=== PATIENT | male | born 1990 | race Caucasian/White ===

== ENCOUNTER 2018-08-29 10:21 | Emergency (ER) | payer OTHER ==
[2018-08-29] MEDS ORDERED: MORPHINE 4 MG/ML SYR ONE (11:02)
[2018-08-29] MEDS ORDERED: ONDANSETRON 4 MG/2 ML VIAL ONE (11:02)
[2018-08-29] MEDS ORDERED: NA CHLORIDE 0.9% 0 ML ONE (11:02)
[2018-08-29 11:03] LABS: Absolute Lymphocytes (CBC) 1.6 K/uL (0.7-4.9); Basophils % 0.3 % (0-1.3); Eosinophils % 1.1 % (0-4.4); Hematocrit 43.2 % (39.6-49.0); Lymphocytes % 38.1 % (15.3-44.8); MPV 10.5 fL (7.6-11.3); Monocytes % 6.7 % (3.3-12.3); RBC Red Blood Cell Count 4.99 M/uL (4.33-5.43)
--- NOTE | 2018-08-29 11:09 | RAD REPORT ---
EXAM DESCRIPTION: CT - Stone Protocol - 08/29/2018 10:57 am CLINICAL HISTORY: Flank pain. FLANK PAIN COMPARISON: Stone Protocol dated 08/10/2015 TECHNIQUE: Axial images were obtained without oral or IV contrast. Lack of contrast limits solid org an and vascular assessment. The [id number] spans the entirety of the system partially obscuring uppermost abdomen and lung bases. Coronal reformatted images were obtained and reviewed. All CT scans are performed using dose optimization technique as appropriate and may include automated exposure control or mA/KV adjustment according to patient size. FINDINGS: The lower lung wilkerson are clear. Imaged portions of the liver and spleen show no suspicious findings on non-contrast imaging. The panc reas and adrenal glands are normal. No pathologic lymphadenopathy in the abdomen or pelvis. 2 mm calculus is present mid right ureter without significant hydronephrosis. Punctate calculus is no marcel left midpole calyx. 36 mm cyst is also seen posterior cortex left kidney. No bowel obstruction, free air, free fluid or abscess. Normal appendix noted. No significant bony abnormality. IMPRESSION: 2 mm calculus mid right ureter without significant hydronephrosis.
[2018-08-29 11:13] LABS: Albumin 4.2 g/dL (3.4-5.0); Bilirubin Direct 0.1 mg/dL (0-0.2); Bilirubin Total 0.4 mg/dL (0.2-1.0); Potassium 3.7 mmol/L (3.5-5.1); Protein, Total 7.1 g/dL (6.4-8.2)
[2018-08-29] MEDS ORDERED: CIPROFLOXACIN HCL 500 MG TAB ONE (12:01)
[2018-08-29] MEDS ORDERED: KETOROLAC 30 MG/ML INJ ONE (12:01)
[2018-08-29] MEDS ORDERED: NA CHLORIDE 0.9% 1,000 ML ONE (12:01)
[2018-08-29] MEDS ORDERED: TAMSULOSIN 0.4 MG SR CAP ONE (12:01)
--- NOTE | 2018-08-29 12:21 | ER ---
Nurse's Notes [facility] Name: Ranjit Rutledge Age: 28 yrs Sex: Male : 1990 Arrival Date: 08/29/2018 Time: 10:24 Bed 7 Private MD: Diagnosis: Calculus of ureter-right Presentation: 08/29 10:40 Presenting complaint: Patient states: R FLANK PAIN RADIATING TO R GROIN. Transition of bp care: patient was not received from another setting of care. Onset of symptoms was August 29, 2018. Risk Assessment: Do you want to hurt yourself or someone else? Patient reports no desire to harm self or others. Initial Sepsis Screen: Does the patient meet any 2 criteria? No. Patient's initial sepsis screen is negative. Does the patient have a suspected source of infection? No. Patient's initial sepsis screen is negative. Care prior to arrival: None. 10:40 Method Of Arrival: Ambulatory bp 10:40 Acuity: CELENA 3 bp Triage Assessment: 10:41 General: Appears in no apparent distress. comfortable, Behavior is cooperative, bp appropriate for age, anxious. Pain: Complains of pain in right flank. EENT: No deficits noted. Neuro: No deficits noted. Cardiovascular: No deficits noted. Respiratory: No deficits noted. GI: Reports R FLANK PAIN. : No signs and/or symptoms were reported regarding the genitourinary system. Derm: No deficits noted. Musculoskeletal: No deficits noted. Historical: - Allergies: 10:41 No Known Allergies; bp - Home Meds: 10:41 None [Active]; bp - PMHx: 10:41 Kidney stones; Depression; Anxiety; bp - PSHx: 10:41 None; bp - Immunization history:: Adult Immunizations up to date. - Social history:: Smoking status: Patient/guardian denies using tobacco. - Ebola Screening: : No symptoms or risks identified at this time. Screenin:43 Abuse screen: Denies threats or abuse. Denies injuries from another. Nutritional bp screening: No deficits noted. Tuberculosis screening: No symptoms or risk factors identified. Fall Risk None identified. Assessment: 10:43 General: SEE TRIAGE NOTE. bp 10:52 Reassessment: PT TO CT WITH INTEGRATED MARKETING INTERN. bp 13:17 Reassessment: Patient appears in no apparent distress at this time. Patient is alert, ca1 oriented x 3, equal unlabored respirations, skin warm/dry/pink. Patient states feeling better. Vital Signs: 10:41 BP 131 / 100; Pulse 82; Resp 16; Temp 97.3; Pulse Ox 97% ; Weight 102.06 kg; Height 5 bp ft. 8 in. (172.72 cm); 10:52 BP 132 / 96; Pulse 84; Resp 16; Pulse Ox 97% ; bp 13:17 BP 130 / 90; Pulse 68; Resp 18 S; Pulse Ox 97% on R/A; ca1 10:41 Body Mass Index 34.21 (102.06 kg, 172.72 cm) bp ED Course: 10:24 Patient arrived in ED. mr 10:27 Mahendra Olguin, MICHAEL is Primary Nurse. bp 10:28 Lucian Moreno NP is PHCP. pm1 10:28 Edna Huang MD is Attending Physician. pm1 10:41 Triage completed. bp 10:41 Arm band placed on. bp 10:43 Patient has correct armband on for positive identification. Bed in low position. Call bp light in reach. Side rails up X2. Adult w/ patient. 10:56 CT completed. Patient tolerated procedure well. Patient moved back from CT. mw3 10:58 CT Stone Protocol In Process Unspecified. EDMS 10:58 Initial lab(s) drawn, by me, sent to lab. Inserted saline lock: 22 gauge in right jb1 antecubital area, using aseptic technique. Blood collected. 12:21 Moo Briggs MD is Referral Physician. pm1 13:17 No provider procedures requiring assistance completed. IV discontinued, intact, ca1 bleeding controlled, No redness/swelling at site. Pressure dressing applied. Administered Medications: 10:53 Drug: NS 0.9% 1000 ml Route: IV; Rate: 1000 ml; Site: right antecubital; bp 13:16 Follow up: Response: No adverse reaction; IV Status: Completed infusion ca1 10:54 Drug: Zofran 4 mg Route: IVP; Site: right antecubital; bp 11:34 Follow up: Response: No adverse reaction bp 10:54 Drug: morphine 4 mg Route: IVP; Site: right antecubital; bp 11:34 Follow up: Response: Pain is decreased bp 11:50 Drug: Cipro 500 mg Route: PO; bp 13:05 Follow up: Response: No adverse reaction bp 11:50 Drug: Flomax 0.4 mg Route: PO; bp 13:05 Follow up: Response: No adverse reaction bp 11:51 Drug: TORadol 30 mg Route: IVP; Site: right antecubital; bp 13:05 Follow up: Response: No adverse reaction bp 13:17 Not Given (Patient Refused; Notified provider): NS 0.9% 1000 ml IV at 1000 ml once ca1 Outcome: 12:21 Discharge ordered by . pm1 13:17 Discharged to home ambulatory, with significant other. ca1 13:17 Condition: stable 13:17 Discharge instructions given to patient, Instructed on discharge instructions, follow up and referral plans. medication usage, Demonstrated understanding of instructions, follow-up care, medications, Prescriptions given X 4. 13:18 Patient left the ED. ca1 Signatures: Dispatcher [employer] EDMS Corby [place] mr JoshLucian, ROUTING CLERK ROUTING CLERK pm1 Mahendra Olguin RN RN bp Racheal Rodriguez mw3 Dawn Seo RN RN ca1 Corrections: (The following items were deleted from the chart) 10:59 10:51 Inserted saline lock: 20 gauge in right antecubital area, using aseptic jb1 technique. Blood collected. bp
--- NOTE | 2018-08-29 12:22 | EDPHYS ---
Physician Documentation [facility] Name: Ranjit Rutledge Age: 28 yrs Sex: Male : 1990 Arrival Date: 08/29/2018 Time: 10:24 Bed 7 Private MD: ED Physician Edna Huang HPI: 08/29 10:37 This 28 yrs old Male presents to ER via Unassigned with complaints of pm1 Possible Kidney Stone. 10:37 The patient presents with abdominal pain right lower quadrant. Onset: The pm1 symptoms/episode began/occurred 3 day(s) ago. The symptoms do not radiate. Associated signs and symptoms: Pertinent positives: hematuria, nausea, Pertinent negatives: chest pain, constipation, diarrhea, dysuria, fever, shortness of breath, vomiting. The symptoms are described as sharp. Modifying factors: The symptoms are alleviated by nothing, the symptoms are aggravated by urinating. Severity of pain: in the emergency department the pain is actually worse. The patient has not experienced similar symptoms in the past. The patient has not recently seen a physician. History of multiple kidney stones requiring lithotripsy and extraction. Historical: - Allergies: 10:41 No Known Allergies; bp - Home Meds: 10:41 None [Active]; bp - PMHx: 10:41 Kidney stones; Depression; Anxiety; bp - PSHx: 10:41 None; bp - Immunization history:: Adult Immunizations up to date. - Social history:: Smoking status: Patient/guardian denies using tobacco. - Ebola Screening: : No symptoms or risks identified at this time. ROS: 10:47 Constitutional: Negative for fever, chills, and weight loss, Eyes: Negative for injury, pm1 pain, redness, and discharge, ENT: Negative for injury, pain, and discharge, Neck: Negative for injury, pain, and swelling, Cardiovascular: Negative for chest pain, palpitations, and edema, Respiratory: Negative for shortness of breath, cough, wheezing, and pleuritic chest pain. 10:47 Back: Negative for injury and pain. 10:47 MS/Extremity: Negative for injury and deformity, Skin: Negative for injury, rash, and discoloration, Neuro: Negative for headache, weakness, numbness, tingling, and seizure. 10:47 Abdomen/GI: Positive for abdominal pain, nausea, of the right lower quadrant, Negative for vomiting, diarrhea, constipation. 10:47 : Positive for hematuria, Negative for burning with urination. Exam: 10:47 Constitutional: This is a well developed, well nourished patient who is awake, alert, pm1 and in no acute distress. Head/Face: Normocephalic, atraumatic. Eyes: Pupils equal round and reactive to light, extra-ocular motions intact. Lids and lashes normal. Conjunctiva and sclera are non-icteric and not injected. Cornea within normal limits. Periorbital areas with no swelling, redness, or edema. ENT: Nares patent. No nasal discharge, no septal abnormalities noted. Tympanic membranes are normal and external auditory canals are clear. Oropharynx with no redness, swelling, or masses, exudates, or evidence of obstruction, uvula midline. Mucous membranes moist. Neck: Trachea midline, no thyromegaly or masses palpated, and no cervical lymphadenopathy. Supple, full range of motion without nuchal rigidity, or vertebral point tenderness. No Meningismus. Chest/axilla: Normal chest wall appearance and motion. Nontender with no deformity. No lesions are appreciated. Cardiovascular: Regular rate and rhythm with a normal S1 and S2. No gallops, murmurs, or rubs. Normal PMI, no JVD. No pulse deficits. Respiratory: Lungs have equal breath sounds bilaterally, clear to auscultation and percussion. No rales, rhonchi or wheezes noted. No increased work of breathing, no retractions or nasal flaring. 10:47 Back: No spinal tenderness. No costovertebral tenderness. Full range of motion. Skin: Warm, dry with normal turgor. Normal color with no rashes, no lesions, and no evidence of cellulitis. MS/ Extremity: Pulses equal, no cyanosis. Neurovascular intact. Full, normal range of motion. 10:47 Abdomen/GI: Inspection: abdomen appears normal, Bowel sounds: normal, Palpation: soft, mild abdominal tenderness, in the right lower quadrant, mass, is not appreciated, rebound tenderness, is not appreciated. 10:47 Neuro: Orientation: is normal, Motor: is normal, moves all fours. Vital Signs: 10:41 BP 131 / 100; Pulse 82; Resp 16; Temp 97.3; Pulse Ox 97% ; Weight 102.06 kg; Height 5 bp ft. 8 in. (172.72 cm); 10:52 BP 132 / 96; Pulse 84; Resp 16; Pulse Ox 97% ; bp 13:17 BP 130 / 90; Pulse 68; Resp 18 S; Pulse Ox 97% on R/A; ca1 10:41 Body Mass Index 34.21 (102.06 kg, 172.72 cm) bp MDM: 10:28 Patient medically screened. pm1 10:47 Data reviewed: vital signs. Data interpreted: Pulse oximetry: on room air is 97 %. pm1 Interpretation: normal. 11:25 Counseling: I had a detailed discussion with the patient and/or guardian regarding: the pm1 historical points, exam findings, and any diagnostic results supporting the discharge/admit diagnosis, lab results, radiology results, the need for outpatient follow up, for definitive care, a urologist, to return to the emergency department if symptoms worsen or persist or if there are any questions or concerns that arise at home. 13:07 ED course: Patient does not want second liter of IV fluids. Patient feels better and pm1 wants to go home. 08/29 10:36 Order name: Basic Metabolic Panel; Complete Time: 11:18 pm1 08/29 10:36 Order name: CBC with Diff; Complete Time: 11:18 pm08/29 10:36 Order name: Hepatic Function; Complete Time: 11:18 pm1 08/29 10:36 Order name: Lipase; Complete Time: 11:18 pm1 08/29 12:42 Order name: Urine Dipstick--Ancillary (enter results) dh3 08/29 10:36 Order name: CT Stone Protocol; Complete Time: 11:18 pm08/29 10:36 Order name: IV Saline Lock; Complete Time: 10:53 pm1 08/29 10:36 Order name: Labs collected and sent; Complete Time: 10:53 pm1 08/29 10:36 Order name: Urine Dipstick-Ancillary (obtain specimen); Complete Time: 13:05 pm1 Administered Medications: 10:53 Drug: NS 0.9% 1000 ml Route: IV; Rate: 1000 ml; Site: right antecubital; bp 13:16 Follow up: Response: No adverse reaction; IV Status: Completed infusion ca1 10:54 Drug: Zofran 4 mg Route: IVP; Site: right antecubital; bp 11:34 Follow up: Response: No adverse reaction bp 10:54 Drug: morphine 4 mg Route: IVP; Site: right antecubital; bp 11:34 Follow up: Response: Pain is decreased bp 11:50 Drug: Cipro 500 mg Route: PO; bp 13:05 Follow up: Response: No adverse reaction bp 11:50 Drug: Flomax 0.4 mg Route: PO; bp 13:05 Follow up: Response: No adverse reaction bp 11:51 Drug: TORadol 30 mg Route: IVP; Site: right antecubital; bp 13:05 Follow up: Response: No adverse reaction bp 13:17 Not Given (Patient Refused; Notified provider): NS 0.9% 1000 ml IV at 1000 ml once ca1 Disposition: 08/29/18 12:21 Discharged to Home. Impression: Calculus of ureter - right. - Condition is Stable. - Discharge Instructions: Kidney Stones, Dietary Guidelines to Help Prevent Kidney Stones. - Prescriptions for Tylenol- Codeine #3 300-30 mg Oral Tablet - take 2 tablets by ORAL route every 6 hours As needed; 20 tablet. Zofran 4 mg Oral Tablet - take 1 tablet by ORAL route every 12 hours As needed; 20 tablet. Flomax 0.4 mg Oral Capsule, Sust. Release 24 hr - take 1 capsule by ORAL route once daily 1/2 hour following the same meal each day; 10 capsule. Cipro 500 mg Oral Tablet - take 1 tablet by ORAL route every 12 hours for 7 days; 14 tablet. - Work release form, Medication Reconciliation Form, Thank You Letter, Antibiotic Education, Prescription Opioid Use form. - Follow up: Emergency Department; When: As needed; Reason: Worsening of condition. Follow up: Moo Briggs; When: 2 - 3 days; Reason: Recheck today's complaints, Continuance of care, Re-evaluation by your physician. - Problem is new. - Symptoms have improved. Addendum: 09/03/2018 02:07 Co-signature as Attending Physician, Edna Huang MD. m a2 Signatures: Dispatcher [employer] EDMS Lucian Moreno, BRANDI BANKING ANALYST pm1 Mahendra Olguin RN RN bp Edna Huang MD MD ma2 Dawn Seo RN RN ca1 Corrections: (The following items were deleted from the chart) 07/06 13:18 12:21 08/29/2018 12:21 Discharged to Home. Impression: Calculus of ureter - right. ca1 Condition is Stable. Discharge Instructions: Kidney Stones, Dietary Guidelines to Help Prevent Kidney Stones. Prescriptions for Zofran 4 mg Oral Tablet - take 1 tablet by ORAL route every 12 hours As needed; 20 tablet, Flomax 0.4 mg Oral Capsule, Sust. Release 24 hr - take 1 capsule by ORAL route once daily 1/2 hour following the same meal each day; 30 capsule, Cipro 500 mg Oral Tablet - take 1 tablet by ORAL route every 12 hours for 7 days; 14 tablet, Tylenol-Codeine #3 300-30 mg Oral Tablet - take 2 tablets by ORAL route every 6 hours As needed; 20 tablet. and Forms are Medication Reconciliation Form, Thank You Letter, Antibiotic Education, Prescription Opioid Use. Follow up: Emergency Department; When: As needed; Reason: Worsening of condition. Follow up: Moo Briggs; When: 2 - 3 days; Reason: Recheck today's complaints, Continuance of care, Re-evaluation by your physician. Problem is new. Symptoms have improved. pm1
[2018-08-29 13:32] LABS: Urine Blood TRACE (NEG); Urine Glucose NEGATIVE (NEG); Urine Protein NEGATIVE (NEG); Urine Specific Gravity 1.025 (1.005-1.030); Urine pH 5.5 (5.0-7.0)
== END 2018-08-29 13:18 | disposition home or self-care (01) ==
LOC: ER 10:21
DX: N20.1 Calculus of ureter (principal); Z87.442 Personal history of urinary calculi
CPT/HCPCS: 36415; 74176; 76377; 80048; 80076; 81003; 83690; 85025; 96361; 96374; 96375; 99284; J2405; J7030

== ENCOUNTER 2019-02-22 11:08 | Emergency (ER) | payer OTHER ==
--- OUTSIDE RECORDS SUMMARY | 2019-02-22 11:11 | XMS REPORT ---
:1990 [facility] [address] [place] [address] Dr. Menjivar [address] [place] [id number] Care Team Providers Name Role Phone Unavailable Unavailable Unavailable Problems This patient has no known problems. Allergies, Adverse Reactions, Alerts This patient has no known allergies or adverse reactions. Medications This patient has no known medications.
[2019-02-22] MEDS ORDERED: IBUPROFEN 200 MG TAB PO ONE (12:06)
--- NOTE | 2019-02-22 12:55 | RAD REPORT ---
EXAM DESCRIPTION: Shoulder Right 2 View - 02/22/2019 12:30 pm CLINICAL HISTORY: Right shoulder pain, history of prior shoulder injury COMPARISON: None. TECHNIQUE: Internal and external rotation views of the right shoulder were obtained. FINDINGS: There is no fracture or dislocation. AC joint is normal in appearance. Acromial humeral j oint space is normal. No abnormal soft tissue calcifications. IMPRESSION: Negative two-view right shoulder examination. Concerns for rotator cuff tear or other soft tissue injury can be addressed with outpatient MR right shoulder examination.
--- NOTE | 2019-02-22 12:58 | RAD REPORT ---
EXAM DESCRIPTION: CT - C Spine Wo Con - 02/22/2019 12:29 pm CLINICAL HISTORY: Fall with neck pain and radiculopathy COMPARISON: None. TECHNIQUE: Computed axial tomography of the cervical spine were obtained with sagittal and coronal r econstruction images generated and reviewed. All CT scans are performed using dose optimization technique as appropriate and may include automated exposure control or mA/KV adjustment according to patient size. FINDINGS: A cervical fracture is not seen. No dislocation. Mild spondylosis IMPRESSION: A cervical fracture is not seen. If the patient continues have symptoms to suggest spinal cord/spinal canal pathology then MRI would b e recommended.
--- NOTE | 2019-02-22 13:07 | ER ---
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 Transition of care: patient was not received from another setting of care. Onset of symptoms was February 22, 2019. Risk Assessment: Do you want to hurt yourself or someone else? Patient reports no desire to harm self or others. Initial Sepsis Screen: Does the patient meet any 2 criteria? No. Patient's initial sepsis screen is negative. Does the patient have a suspected source of infection? No. Patient's initial sepsis screen is negative. Care prior to arrival: None. 11:21 Method Of Arrival: Ambulatory sg 11:21 Acuity: CELENA 4 sg Historical: - Allergies: 11:10 No Known Allergies; sg - PMHx: 11:10 Anxiety; Depression; Kidney stones; sg - PSHx: 11:10 None; sg - Immunization history:: Adult Immunizations unknown. - Social history:: Smoking status: Patient uses tobacco products. - Ebola Screening: : Patient negative for fever greater than or equal to 101.5 degrees Fahrenheit, and additional compatible Ebola Virus Disease symptoms Patient denies exposure to infectious person Patient denies travel to an Ebola-affected area in the 21 days before illness onset No symptoms or risks identified at this time. - Family history:: not pertinent. Screenin:08 Abuse screen: Denies threats or abuse. Denies injuries from another. Nutritional mg2 screening: No deficits noted. Tuberculosis screening: No symptoms or risk factors identified. Fall Risk None identified. Assessment: 12:07 General: Appears in no apparent distress. uncomfortable, Behavior is calm, cooperative. mg2 Pain: Complains of pain in right shoulder Pain does not radiate. Pain currently is 5 out of 10 on a pain scale. Quality of pain is described as aching, Pain began suddenly, last week Is intermittent. Neuro: Level of Consciousness is awake, alert, obeys commands, Oriented to person, place, time, situation. Cardiovascular: Capillary refill < 3 seconds Patient's skin is warm and dry. Respiratory: Airway is patent Respiratory effort is even, unlabored, Respiratory pattern is regular, symmetrical. GI: No signs and/or symptoms were reported involving the gastrointestinal system. : No signs and/or symptoms were reported regarding the genitourinary system. EENT: No signs and/or symptoms were reported regarding the EENT system. Derm: Skin is intact, is healthy with good turgor, Skin is pink, warm \T\ dry. normal. Musculoskeletal: Circulation, motion, and sensation intact. Capillary refill < 3 seconds, Reports pain in right shoulder. 13:18 Reassessment: pain is tolerable Patient states feeling better. mg2 Vital Signs: 11:20 BP 136 / 86; Pulse 89; Resp 18; Temp 97.2; Pulse Ox 100% on R/A; Weight 99.79 kg; sg Height 5 ft. 8 in. (172.72 cm); Pain 6/10; 13:18 BP 122 / 78; Pulse 80; Resp 17; Temp 98; Pulse Ox 100% on R/A; Pain 4/10; mg2 11:20 Body Mass Index 33.45 (99.79 kg, 172.72 cm) ED Course: 11:09 Patient arrived in ED. sg 11:10 Arm band placed on. sg 11:23 Triage completed. sg 11:55 Josue Morrow MD is Attending Physician. [facility] 12:02 Micha Matos, MICHAEL is Primary Nurse. mg2 12:08 Patient has correct armband on for positive identification. mg2 12:08 No provider procedures requiring assistance completed. Patient did not have IV access mg2 during this emergency room visit. 12:24 X-ray completed. Portable x-ray completed in exam room. Patient tolerated procedure mh1 well. 12:30 Shoulder Right (2 View) XRAY In Process Unspecified. EDMS 12:30 CT C Spine In Process Unspecified. EDMS 13:05 Alexei Rios MD is Referral Physician. pop Administered Medications: 12:06 Not Given (Patient Refused): Motrin 600 mg PO once mg2 12:54 CANCELLED (Duplicate Order): TORadol 60 mg IM once pop Outcome: 13:06 Discharge ordered by . pop 13:18 Discharged to home ambulatory. mg2 13:18 Condition: stable 13:18 Discharge instructions given to patient, Instructed on discharge instructions, follow up and referral plans. medication usage, Demonstrated understanding of instructions, follow-up care, medications, Prescriptions given X 2. 13:19 Patient left the ED. mg2 Signatures: Dispatcher [employer] EDMS Deshawn Farley RN RN Josue Morrow MD MD cha Harvey, Martha [facility] Micha Matos RN RN mg2
--- NOTE | 2019-02-22 13:08 | EDPHYS ---
Physician Documentation [facility] Name: Ranjit Rutledge Age: 28 yrs Sex: Male : 1990 Arrival Date: 02/22/2019 Time: 11:09 Bed 25 Private MD: ED Physician Josue Morrow HPI: 02/22 12:19 This 28 yrs old Male presents to ER via Ambulatory with complaints of pop Shoulder Pain. 12:19 The patient or guardian complains of decreased range of motion, pain. right shoulder, pop right trapezius and right sternocleidomastoid. Context: The problem was sustained at home, resulted from a fall. Onset: The symptoms/episode began/occurred 20 day(s) ago. Modifying factors: the symptoms are alleviated by remaining still, shoulder immobilizer, The symptoms are aggravated by lifting weight, movement, rotation of arm. Associated signs and symptoms: The patient has no apparent associated signs or symptoms. Severity of symptoms: At their worst the symptoms were mild, moderate, in the emergency department the symptoms are unchanged. The patient has not experienced similar symptoms in the past. Historical: - Allergies: 11:10 No Known Allergies; sg - PMHx: 11:10 Anxiety; Depression; Kidney stones; sg - PSHx: 11:10 None; sg - Immunization history:: Adult Immunizations unknown. - Social history:: Smoking status: Patient uses tobacco products. - Ebola Screening: : Patient negative for fever greater than or equal to 101.5 degrees Fahrenheit, and additional compatible Ebola Virus Disease symptoms Patient denies exposure to infectious person Patient denies travel to an Ebola-affected area in the 21 days before illness onset No symptoms or risks identified at this time. - Family history:: not pertinent. ROS: 12:19 Constitutional: Negative for fever, chills, and weight loss, Eyes: Negative for injury, pop pain, redness, and discharge, ENT: Negative for injury, pain, and discharge, Neck: Negative for injury, pain, and swelling, Cardiovascular: Negative for chest pain, palpitations, and edema, Respiratory: Negative for shortness of breath, cough, wheezing, and pleuritic chest pain, Abdomen/GI: Negative for abdominal pain, nausea, vomiting, diarrhea, and constipation, Back: Negative for injury and pain, : Negative for injury, bleeding, discharge, and swelling, Skin: Negative for injury, rash, and discoloration, Neuro: Negative for headache, weakness, numbness, tingling, and seizure, Psych: Negative for depression, anxiety, suicide ideation, homicidal ideation, and hallucinations, Allergy/Immunology: Negative for hives, rash, and allergies, Endocrine: Negative for neck swelling, polydipsia, polyuria, polyphagia, and marked weight changes. 12:19 MS/extremity: Positive for decreased range of motion, pain, tenderness, of the anterior aspect of right shoulder and posterior aspect of right shoulder. Exam: 12:19 Constitutional: This is a well developed, well nourished patient who is awake, alert, pop and in no acute distress. Head/Face: Normocephalic, atraumatic. Eyes: Pupils equal round and reactive to light, extra-ocular motions intact. Lids and lashes normal. Conjunctiva and sclera are non-icteric and not injected. Cornea within normal limits. Periorbital areas with no swelling, redness, or edema. ENT: Nares patent. No nasal discharge, no septal abnormalities noted. Tympanic membranes are normal and external auditory canals are clear. Oropharynx with no redness, swelling, or masses, exudates, or evidence of obstruction, uvula midline. Mucous membranes moist. Neck: Trachea midline, no thyromegaly or masses palpated, and no cervical lymphadenopathy. Supple, full range of motion without nuchal rigidity, or vertebral point tenderness. No Meningismus. Chest/axilla: Normal chest wall appearance and motion. Nontender with no deformity. No lesions are appreciated. Cardiovascular: Regular rate and rhythm with a normal S1 and S2. No gallops, murmurs, or rubs. Normal PMI, no JVD. No pulse deficits. Respiratory: Lungs have equal breath sounds bilaterally, clear to auscultation and percussion. No rales, rhonchi or wheezes noted. No increased work of breathing, no retractions or nasal flaring. Abdomen/GI: Soft, non-tender, with normal bowel sounds. No distension or tympany. No guarding or rebound. No evidence of tenderness throughout. Back: No spinal tenderness. No costovertebral tenderness. Full range of motion. Male : Normal genitalia with no discharge or lesions. Skin: Warm, dry with normal turgor. Normal color with no rashes, no lesions, and no evidence of cellulitis. Neuro: Awake and alert, GCS 15, oriented to person, place, time, and situation. Cranial nerves II-XII grossly intact. Motor strength 5/5 in all extremities. Sensory grossly intact. Cerebellar exam normal. Normal gait. Psych: Awake, alert, with orientation to person, place and time. Behavior, mood, and affect are within normal limits. 12:19 Musculoskeletal/extremity: Extremities: decreased ROM, pain, ROM: limited active range of motion, limited passive range of motion, Circulation is intact in all extremities. Sensation intact. Compartment Syndrome exam of affected extremity: is normal. DVT Exam: no swelling, negative Homans' sign noted on exam, no appreciated bluish discoloration, no erythema, no increased warmth, pain, tenderness. Vital Signs: 11:20 BP 136 / 86; Pulse 89; Resp 18; Temp 97.2; Pulse Ox 100% on R/A; Weight 99.79 kg; sg Height 5 ft. 8 in. (172.72 cm); Pain 6/10; 13:18 BP 122 / 78; Pulse 80; Resp 17; Temp 98; Pulse Ox 100% on R/A; Pain 4/10; mg2 11:20 Body Mass Index 33.45 (99.79 kg, 172.72 cm) sg MDM: 11:55 Patient medically screened. [facility] 12:21 Data reviewed: vital signs, nurses notes, lab test result(s), radiologic studies, CT pop scan, plain films. 02/22 11:58 Order name: Shoulder Right (2 View) XRAY; Complete Time: 13:05 [facility] 02/22 12:19 Order name: CT C Spine; Complete Time: 13:05 [facility] 02/22 11:58 Order name: Ice pack; Complete Time: 12:04 [facility] Administered Medications: 12:06 Not Given (Patient Refused): Motrin 600 mg PO once mg2 12:54 CANCELLED (Duplicate Order): TORadol 60 mg IM once pop Disposition: 02/22/19 13:06 Discharged to Home. Impression: Pain in right shoulder. - Condition is Stable. - Discharge Instructions: Joint Pain, Musculoskeletal Pain, Shoulder Pain, Shoulder Range of Motion Exercises, Shoulder Pain, [id number]. - Prescriptions for Tylenol- Codeine #3 300-30 mg Oral Tablet - take 2 tablet by ORAL route every 6 hours As needed; 30 tablet. Medrol (Richi) 4 mg Oral Tablets, Dose Pack - take 1 tablet by ORAL route as directed - follow package instructions; 1 packet. - Medication Reconciliation Form, Thank You Letter, Antibiotic Education, Prescription Opioid Use form. - Follow up: lAexei Rios MD; When: 2 - 3 days; Reason: Recheck today's complaints, Continuance of care, Re-evaluation by your physician. - Problem is new. - Symptoms have improved. Signatures: Dispatcher [employer] EDDeshawn Munson, MICHAEL RN sg Josue Morrow MD MD cha Gardose, Michele, RN RN mg2 Corrections: (The following items were deleted from the chart) 12:54 12:19 TORadol 60 mg IM once ordered. pop lord 13:19 13:06 02/22/2019 13:06 Discharged to Home. Impression: Pain in right shoulder. mg2 Condition is Stable. Forms are Medication Reconciliation Form, Thank You Letter, Antibiotic Education, Prescription Opioid Use. Follow up: Alexei Rios; When: 2 - 3 days; Reason: Recheck today's complaints, Continuance of care, Re-evaluation by your physician. Problem is new. Symptoms have improved. pop
[2019-02-22 13:23] VITALS: O2SAT 100
[2019-02-22 13:25] VITALS: BP 122/78; TEMP 98
== END 2019-02-22 13:19 | disposition home or self-care (01) ==
LOC: ER 11:08
DX: M25.511 Pain in right shoulder (principal); Z72.0 Tobacco use
CPT/HCPCS: 72125; 99283

== ENCOUNTER 2019-07-26 08:41 | Emergency (ER) | payer OTHER ==
[2019-07-26] MEDS ORDERED: KETOROLAC 30 MG/ML INJ ONE (09:15)
[2019-07-26] MEDS ORDERED: DIAZEPAM 5 MG TABLET ONE (09:15)
--- NOTE | 2019-07-26 09:46 | RAD REPORT ---
EXAM DESCRIPTION: CT - Stone Protocol - 07/26/2019 9:17 am CLINICAL HISTORY: FLANK PAIN COMPARISON: Stone Protocol dated 08/29/2018; Stone Protocol dated 08/10/2015; Stone Protocol dated 07/18 TECHNIQUE: Axial 3 mm thick images were obtained without oral or IV contrast. The [id number] span s the entirety of the system including uppermost abdomen and lung bases. All CT scans are performed using dose optimization technique as appropriate and may include automated exposure control or mA/KV adjustment according to patient size. FINDINGS: No hydronephrosis is present and no obstructing ureteral calculi. No suspicious renal mass es. Isodense masses and pyelonephritis are not excluded on a stone protocol CT scan. Approximately 3. 4 centimeter rounded low-density mass in the medial left kidney is unchanged from prior imaging and s hows noncontrast CT cyst characteristics. No perinephric stranding. No significant adrenal finding. N o urinary bladder suspicious finding. Prostate gland and seminal vesicles show no suspicious findings . Imaged portions of the liver, spleen and pancreas show no suspicious findings on non-contrast imaging . No gallbladder or biliary tree abnormality identified. No suspicious bowel findings. No hernia, mass or bulky lymphadenopathy noted. No free air, free fluid or inflammatory stranding. No muscle hematoma or skeletal muscle abnormality seen. No acute bone finding. Central canal detail i s inherently limited. No gross evidence for measurable disc herniation. IMPRESSION: Noncontrast CT abdomen and pelvis imaging shows no acute or suspicious finding. No identifiable change back to the August 2018 study. Isodense masses and pyelonephritis are not excluded on stone protocol technique.
--- OUTSIDE RECORDS SUMMARY | 2019-07-26 10:23 | XMS REPORT ---
:1990 Author Organization [facility] t Address [address] [place] [address] Care Team Providers Name Role Phone Asked, Pcp Primary Care Physician Unavailable Yenifer GLASER S Attending Clinician Problems This patient has no known problems. Allergies, Adverse Reactions, Alerts This patient has no known allergies or adverse reactions. Social History Social Habit Start Date Stop Date Quantity Comments Source Sex Assigned At Arianna aldo Veloz Medications This patient has no known medications. Procedures This patient has no known procedures. Plan of Care Planned Activity Planned Date Details Comments Source Future Scheduled 2019-09-25 INFLUENZA VACCINE [facility]oz Test 00:00:00 [code = INFLUENZA VACCINE] Encounters Start End Encounter Admission Attending Care Care Encounter Source Date/Time Date/Time Type Type Clinicians Facility Department ID 2019-04-19 2019-04-[address] [id number] 15:34:02 16:12:48 Visit [facility] [id number] Surgical [id number] Specialti [id number] [address] Results This patient has no known results.
--- OUTSIDE RECORDS SUMMARY | 2019-07-26 10:23 | XMS REPORT | Clinical Summary ---
:1990 Author Organization [facility] Address [address] [place] [id number] Care Team Providers Name Role Phone Asked, No Pcp Primary Care Provider Unavailable Allergies Not on File Medications Not on file Active Problems Not on file Social History Tobacco Use Types Packs/Day Years Used Date Never Assessed Sex Assigned at Date Recorded Not on file Job Start Date Occupation Industry Not on file Not on file Not on file Travel History Travel Start Travel End No recent travel history available. 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
[2019-07-26 10:48] VITALS: BP 137/100; TEMP 97.8; O2SAT 100
--- NOTE | 2019-07-26 19:52 | ER ---
Nurse's Notes [facility] Name: Ranjit Rutledge Age: 29 yrs Sex: Male : 1990 Arrival Date: 07/26/2019 Time: 08:46 Bed 6 Private MD: Diagnosis: Low back pain;Radiculopathy, lumbar region Presentation: 07/25 09:00 Chief complaint: Right sided low back pain x 3 weeks. Denies injury/urinary s/s. hb Coronavirus screen: Proceed with normal triage. Ebola Screen: No symptoms or risks identified at this time. Initial Sepsis Screen: Does the patient meet any 2 criteria? No. Patient's initial sepsis screen is negative. Does the patient have a suspected source of infection? No. Patient's initial sepsis screen is negative. Risk Assessment: Do you want to hurt yourself or someone else? Patient reports no desire to harm self or others. Onset of symptoms was June 2019. 09:00 Method Of Arrival: Ambulatory hb 09:00 Acuity: CELENA 4 hb Historical: - Allergies: 09:08 NSAIDS; em - Home Meds: 09: None [Active]; hb - PMHx: 09: Anxiety; Depression; Kidney stones; hb - PSHx: 09:01 None; hb - Immunization history:: Adult Immunizations up to date. - Social history:: Smoking status: Patient denies any tobacco usage or history of. Screenin:32 Nutritional screening: No deficits noted. Tuberculosis screening: No symptoms or risk em factors identified. Fall Risk 09:32 Abuse screen: Denies threats or abuse. em Assessment: 09:04 General: Appears in no apparent distress. uncomfortable, Behavior is calm, cooperative, em appropriate for age, Denies fever. Pain: Complains of pain in lumbar area Pain currently is 9 out of 10 on a pain scale. Pain began 2 weeks ago. Neuro: Level of Consciousness is awake, alert, obeys commands, Oriented to person, place, time, situation, Appropriate for age. Cardiovascular: Capillary refill < 3 seconds Patient's skin is warm and dry. Respiratory: Airway is patent Respiratory effort is even, unlabored, Respiratory pattern is regular, symmetrical. GI: Abdomen is flat. : Denies burning with urination. Derm: Skin is intact, is healthy with good turgor, Skin is pink, warm \T\ dry. Musculoskeletal: Capillary refill < 3 seconds, Range of motion: intact in all extremities. 10:30 Reassessment: Patient appears in no apparent distress at this time. Patient and/or em family updated on plan of care and expected duration. Pain level reassessed. Patient is alert, oriented x 3, equal unlabored respirations, skin warm/dry/pink. Vital Signs: 09:00 BP 137 / 100; Pulse 94; Resp 16; Temp 97.8; Pulse Ox 100% ; Weight 99.79 kg; Height 5 hb ft. 8 in. (172.72 cm); Pain 9/10; 09:00 Body Mass Index 33.45 (99.79 kg, 172.72 cm) hb ED Course: 08:46 Patient arrived in ED. mr 08:46 Josue Morrow MD is Attending Physician. pop 08:50 Krist[facility]ilar [facility]-C [facility]. snw 09:00 Demarco Vergara, RN is Primary Nurse. em 09:01 Triage completed. hb 09:01 Arm band placed on. hb 09:03 Patient has correct armband on for positive identification. Bed in low position. Call em light in reach. 09:19 CT Stone Protocol In Process Unspecified. EDMS 10:41 No provider procedures requiring assistance completed. Patient did not have IV access em during this emergency room visit. Administered Medications: 09:09 Not Given (Other Intervention Used): TORadol 30 mg IM once em 09:11 Drug: Valium 5 mg Route: PO; jl7 10:33 Follow up: Response: No adverse reaction em Outcome: 10:12 Discharge ordered by . snw 10:41 Discharged to home ambulatory. em 10:41 Condition: good 10:41 Discharge instructions given to patient, Instructed on discharge instructions, follow up and referral plans. medication usage, Demonstrated understanding of instructions, follow-up care, medications, Prescriptions given X 1. 10:42 Patient left the ED. em Signatures: Dispatcher [employer] EDMT Josue Morrow MD MD cha Therrien, Shelly, FNP-C BUSINESS OFFICE ASSISTANT-Delia Julisa Ty mr Demarco Vergara, RN RN em Ariana Messer RN RN hb Leal, Jahala, RN RN jl7 Corrections: (The following items were deleted from the chart) 09:08 09:01 Allergies: No Known Allergies; hb em
--- NOTE | 2019-07-26 19:53 | EDPHYS ---
Physician Documentation [facility] Name: Ranjit Rutledge Age: 29 yrs Sex: Male : 1990 Arrival Date: 07/26/2019 Time: 08:46 Bed 6 Private MD: ED Physician Josue Morrow HPI: 07/25 10:09 This 29 yrs old Male presents to ER via Ambulatory with complaints of Back snw Pain. 10:09 The patient presents with pain that is acute, and decreased range of motion. The snw symptoms are located in the low back. Onset: The symptoms/episode began/occurred suddenly. Location: right worse than left. Associated signs and symptoms: The patient has no apparent associated signs or symptoms. The problem was sustained 20 minutes of yard work 2-3 weeks ago. Modifying factors: the patient symptoms are aggravated by lifting, movement. Severity of symptoms: At their worst the symptoms were moderate, in the emergency department the symptoms are unchanged. It is unknown whether or not the patient has had similar symptoms in the past. The patient has not recently seen a physician, told he had "very thin esophageal lining" in 2014, avoid NSAIDS. Historical: - Allergies: 09:08 NSAIDS; em - Home Meds: 09:01 None [Active]; hb - PMHx: 09:01 Anxiety; Depression; Kidney stones; hb - PSHx: 09: None; hb - Immunization history:: Adult Immunizations up to date. - Social history:: Smoking status: Patient denies any tobacco usage or history of. ROS: 10:06 Constitutional: Negative for fever, chills, and weight loss, Eyes: Negative for injury, snw pain, redness, and discharge, ENT: Negative for injury, pain, and discharge, Neck: Negative for injury, pain, and swelling, Cardiovascular: Negative for chest pain, palpitations, and edema, Respiratory: Negative for shortness of breath, cough, wheezing, and pleuritic chest pain, Abdomen/GI: Negative for abdominal pain, nausea, vomiting, diarrhea, and constipation, : Negative for injury, bleeding, discharge, and swelling, MS/Extremity: Negative for injury and deformity, Skin: Negative for injury, rash, and discoloration, Neuro: Negative for headache, weakness, numbness, tingling, and seizure, Psych: Negative for depression, anxiety, suicide ideation, homicidal ideation, and hallucinations. 10:06 Back: Positive for decreased range of motion, pain at rest, pain with movement, of the low back area. Exam: 10:05 Constitutional: This is a well developed, well nourished patient who is awake, alert, snw and in no acute distress. Head/Face: Normocephalic, atraumatic. Eyes: Pupils equal round and reactive to light, extra-ocular motions intact. Lids and lashes normal. Conjunctiva and sclera are non-icteric and not injected. Cornea within normal limits. Periorbital areas with no swelling, redness, or edema. ENT: Nares patent. No nasal discharge, no septal abnormalities noted. Tympanic membranes are normal and external auditory canals are clear. Oropharynx with no redness, swelling, or masses, exudates, or evidence of obstruction, uvula midline. Mucous membranes moist. Neck: Trachea midline, no thyromegaly or masses palpated, and no cervical lymphadenopathy. Supple, full range of motion without nuchal rigidity, or vertebral point tenderness. No Meningismus. Chest/axilla: Normal chest wall appearance and motion. Nontender with no deformity. No lesions are appreciated. Cardiovascular: Regular rate and rhythm with a normal S1 and S2. No gallops, murmurs, or rubs. Normal PMI, no JVD. No pulse deficits. Respiratory: Lungs have equal breath sounds bilaterally, clear to auscultation and percussion. No rales, rhonchi or wheezes noted. No increased work of breathing, no retractions or nasal flaring. Abdomen/GI: Soft, non-tender, with normal bowel sounds. No distension or tympany. No guarding or rebound. No evidence of tenderness throughout. Skin: Warm, dry with normal turgor. Normal color with no rashes, no lesions, and no evidence of cellulitis. MS/ Extremity: Pulses equal, no cyanosis. Neurovascular intact. Full, normal range of motion. Neuro: Awake and alert, GCS 15, oriented to person, place, time, and situation. Cranial nerves II-XII grossly intact. Motor strength 5/5 in all extremities. Sensory grossly intact. Cerebellar exam normal. Normal gait. Psych: Awake, alert, with orientation to person, place and time. Behavior, mood, and affect are within normal limits. 10:05 Back: pain, that is moderate, of the low back area, ROM is painful, normal spinal alignment noted, CVA tenderness, is absent, muscle spasm, is appreciated in the low back area. Vital Signs: 09:00 BP 137 / 100; Pulse 94; Resp 16; Temp 97.8; Pulse Ox 100% ; Weight 99.79 kg; Height 5 hb ft. 8 in. (172.72 cm); Pain 9/10; 09:00 Body Mass Index 33.45 (99.79 kg, 172.72 cm) hb MDM: 09:01 Patient medically screened. [facility] 10:13 Data reviewed: vital signs, nurses notes. Data interpreted: Pulse oximetry: on room air snw is 100 %. Interpretation: normal. Counseling: I had a detailed discussion with the patient and/or guardian regarding: the historical points, exam findings, and any diagnostic results supporting the discharge/admit diagnosis, the presence of at least one elevated blood pressure reading (>120/80) during this emergency department visit, radiology results, the need for outpatient follow up, to return to the emergency department if symptoms worsen or persist or if there are any questions or concerns that arise at home. Special discussion: I have referred the patient to see his PCP for further evaluation of high blood pressure. Based on the history and exam findings, there is no indication for further emergent testing or inpatient evaluation. I discussed with the patient/guardian the need to see the back specialist for further evaluation of the symptoms. I discussed with the patient/guardian the need to see the primary care provider for further evaluation of the symptoms. 07/25 09:02 Order name: CT Stone Protocol; Complete Time: 09:54 snw Administered Medications: 09:09 Not Given (Other Intervention Used): TORadol 30 mg IM once em 09:11 Drug: Valium 5 mg Route: PO; jl7 10:33 Follow up: Response: No adverse reaction em Disposition: 15:23 Co-signature as Attending Physician, Josue Morrow MD I agree with the assessment and [facility] plan of care. Disposition: 07/26/19 10:12 Discharged to Home. Impression: Low back pain, Radiculopathy, lumbar region. - Condition is Stable. - Discharge Instructions: Back Pain, Adult, Hypertension, Lumbosacral Radiculopathy, Musculoskeletal Pain, Back Injury Prevention, [id number], Back Exercises, Pnlo-mt-[id number], Cryotherapy, Rehydration, Adult, Heat Therapy, Back Injury Prevention. - Prescriptions for orphenadrine citrate 100 mg Oral Tablet Sustained Release - take 1 tablet by ORAL route 2 times per day As needed; 20 tablet. - Work release form, Medication Reconciliation Form, Thank You Letter, Antibiotic Education, Prescription Opioid Use form. - Follow up: Emergency Department; When: As needed; Reason: Worsening of condition. Follow up: Private Physician; When: 2 - 3 days; Reason: Recheck today's complaints, Continuance of care, Re-evaluation by your physician. Signatures: Dispatcher [employer] EDJosue Kaiser MD MD cha Therrien, Shelly, TOOL MACHINIST-C TOOL MACHINIST-Rollyw Demarco Vergara, RN RN em Ariana Messer, RN RN Erik Rainey RN RN jl7 Corrections: (The following items were deleted from the chart) 09:08 09:01 Allergies: No Known Allergies; hb em 10:42 10:12 07/26/2019 10:12 Discharged to Home. Impression: Low back pain; Radiculopathy, em lumbar region. Condition is Stable. Forms are Medication Reconciliation Form, Thank You Letter, Antibiotic Education, Prescription Opioid Use. Follow up: Emergency Department; When: As needed; Reason: Worsening of condition. Follow up: Private Physician; When: 2 - 3 days; Reason: Recheck today's complaints, Continuance of care, Re-evaluation by your physician. snw
== END 2019-07-26 10:42 | disposition home or self-care (01) ==
LOC: ER 08:41
DX: M54.16 Radiculopathy, lumbar region (principal); Z88.6 Allergy status to analgesic agent
CPT/HCPCS: 74176; 76377; 99283

== ENCOUNTER 2020-04-13 10:36 | Emergency (ER) | payer OTHER ==
[2020-04-13 12:11] LABS: Urine Blood 1+ (NEG); Urine Glucose NEGATIVE (NEG); Urine Protein 1+ (NEG); Urine Specific Gravity >1.030 (1.005-1.030)
--- NOTE | 2020-04-13 12:47 | RAD REPORT ---
EXAM DESCRIPTION: CT - Stone Protocol - 04/13/2020 12:35 pm CLINICAL HISTORY: Flank pain. Abd pain;Flank pain COMPARISON: Stone Protocol dated 07/26/2019 TECHNIQUE: Axial images were obtained without oral or IV contrast. Lack of contrast limits solid org an and vascular assessment. The [id number] spans the entirety of the system partially obscuring uppermost abdomen and lung bases. Coronal reformatted images were obtained and reviewed. All CT scans are performed using dose optimization technique as appropriate and may include automated exposure control or mA/KV adjustment according to patient size. FINDINGS: The lower lung wilkerson are clear. Imaged portions of the liver and spleen show no suspicious findings on non-contrast imaging. The panc reas and adrenal glands are normal. No pathologic lymphadenopathy in the abdomen or pelvis. 2 mm calculus is seen within the mid left ureter without significant hydronephrosis. No right-sided c alculus is evident. 26 mm cyst posterior cortex left kidney. No bowel obstruction, free air, free fluid or abscess. Normal appendix noted. No significant bony abnormality. IMPRESSION: 2 mm mid left ureter calculus is present without significant hydronephrosis evident.
[2020-04-13] MEDS ORDERED: NA CHLORIDE 0.9% 1,000 ML ONE (13:08)
[2020-04-13] MEDS ORDERED: MORPHINE 4 MG/ML SYR ONE (13:08)
[2020-04-13] MEDS ORDERED: ONDANSETRON 4 MG/2 ML VIAL ONE (13:08)
[2020-04-13 13:13] LABS: Absolute Lymphocytes (CBC) 2.2 K/uL (0.7-4.9); Basophils % 0.5 % (0-1.3); Hematocrit 45.4 % (39.6-49.0); Lymphocytes % 38.2 % (15.3-44.8); MPV 10.1 fL (7.6-11.3); RBC Red Blood Cell Count 5.35 M/uL (4.33-5.43)
--- NOTE | 2020-04-13 13:17 | ER ---
Nurse's Notes [facility] Name: Ranjit Rutledge Age: 29 yrs Sex: Male : 1990 Arrival Date: 04/13/2020 Time: 10:40 Bed 12 Private MD: Diagnosis: Hydronephrosis with renal and ureteral calculous obstruction-2 mm mid left calculus, mild hydronephrosis Presentation: 04/13 10:47 Chief complaint: Patient states: L flank pain for 3 days. +N/V today, unable to urinate ll1 for 1 hour [employer]. No fever. Coronavirus screen: Client denies travel out of the [place] in the last 14 days. At this time, the client does not indicate any symptoms associated with coronavirus-19. Ebola Screen: Patient denies travel to an Ebola-affected area in the 21 days before illness onset. Initial Sepsis Screen: Does the patient meet any 2 criteria? No. Patient's initial sepsis screen is negative. Does the patient have a suspected source of infection? Yes: Dysuria/Frequency/Urgency/UTI. Risk Assessment: Do you want to hurt yourself or someone else? Patient reports no desire to harm self or others. Onset of symptoms was April 11, 2020. 10:47 Method Of Arrival: Ambulatory ll1 10:47 Acuity: CELENA 3 ll1 Historical: - Allergies: 10:47 NSAIDS; ll1 - PMHx: 10:47 Anxiety; Depression; Kidney stones; ll1 - PSHx: 10:47 Lithotripsy; PRK; shoulder repair; ll1 - Immunization history:: Flu vaccine is not up to date. - Social history:: Smoking status: Patient denies any tobacco usage or history of. - Family history:: not pertinent. Screenin:16 Abuse screen: Denies threats or abuse. Nutritional screening: No deficits noted. tw2 Tuberculosis screening: No symptoms or risk factors identified. Fall Risk None identified. Assessment: 12:15 General: Appears in no apparent distress. uncomfortable, well groomed, Behavior is tw2 calm, cooperative, appropriate for age. Pain: Complains of pain in right mid back, right low back and abdomen. Neuro: Level of Consciousness is awake, alert, obeys commands, Oriented to person, place, time, situation. Cardiovascular: Capillary refill < 3 seconds Patient's skin is warm and dry. Respiratory: Airway is patent Respiratory effort is even, unlabored, Respiratory pattern is regular, symmetrical. GI: Reports nausea. : Reports inability to void, since this morning, "im only able to get a little bit out". EENT: No signs and/or symptoms were reported regarding the EENT system. Derm: No signs and/or symptoms reported regarding the dermatologic system. Musculoskeletal: Range of motion: intact in all extremities. 12:18 Reassessment: provider at bedside at this time. tw2 13:02 Reassessment: No changes from previously documented assessment. Patient and/or family tw2 updated on plan of care and expected duration. Pain level reassessed. Patient is alert, oriented x 3, equal unlabored respirations, skin warm/dry/pink. 13:45 Reassessment: Patient appears in no apparent distress at this time. Patient and/or tw2 family updated on plan of care and expected duration. Pain level reassessed. Patient is alert, oriented x 3, equal unlabored respirations, skin warm/dry/pink. Patient states feeling better. Vital Signs: 10:47 BP 147 / 97; Pulse 99; Resp 18; Temp 97.2; Pulse Ox 96% ; Weight 102.06 kg; Height 5 ll1 ft. 8 in. (172.72 cm); Pain 7/10; 13:20 BP 163 / 64; Pulse 89; Resp 17; Pulse Ox 99% on R/A; tw2 10:47 Body Mass Index 34.21 (102.06 kg, 172.72 cm) ll1 ED Course: 10:40 Patient arrived in ED. as 10:46 Arm band placed on. ll1 10:49 Triage completed. ll1 12:16 Josue Morrow MD is Attending Physician. pop 12:16 Radha Sánchez, MICHAEL is Primary Nurse. tw2 12:16 Bed in low position. Call light in reach. Pulse ox on. NIBP on. tw2 12:35 CT Stone Protocol In Process Unspecified. EDMS 12:40 Inserted saline lock: 20 gauge in right antecubital area, using aseptic technique. tw2 Blood collected. 13:15 Blake Duarte MD is Referral Physician. pop 13:35 Awaiting re-evaluation by ER provider, Awaiting: and results from provider prior to tw2 discharge. 13:45 IV discontinued, intact, bleeding controlled, No redness/swelling at site. Pressure tw2 dressing applied. 13:53 No provider procedures requiring assistance completed. tw2 Administered Medications: 12:56 Drug: Zofran (Ondansetron) 4 mg Route: IVP; Site: right antecubital; tw2 13:55 Follow up: Response: No adverse reaction tw2 13:00 Drug: NS 0.9% 1000 ml Route: IV; Rate: 1 bolus; Site: right antecubital; tw2 13:45 Follow up: Response: No adverse reaction; IV Status: Completed infusion; IV Intake: tw2 1000ml 13:00 Drug: morphine 4 mg {Note: RASS 0.} Route: IVP; Site: right antecubital; tw2 13:45 Follow up: Response: No adverse reaction; Pain is decreased; RASS: Alert and Calm (0) tw2 13:28 Drug: Flomax 0.4 mg Route: PO; tw2 13:45 Follow up: Response: No adverse reaction tw2 Intake: 13:45 IV: 1000ml; Total: 1000ml. tw2 Outcome: 13:16 Discharge ordered by MD. lord 13:45 Patient left the ED. tw2 13:45 Discharged to home ambulatory. tw2 13:45 Condition: stable 13:45 Discharge instructions given to patient, Instructed on discharge instructions, follow up and referral plans. no drinking with medication, no driving heavy equipment, medication usage, Demonstrated understanding of instructions, follow-up care, medications, Prescriptions given X 4. Signatures: Dispatcher [employer] EDWY Josue Morrow MD MD cha Martinez, Amelia as Wise, Tara RN RN tw2 Ac Campbell RN RN ll1
--- NOTE | 2020-04-13 13:17 | EDPHYS ---
Physician Documentation [facility] Name: Ranjit Rutledge Age: 29 yrs Sex: Male : 1990 Arrival Date: 04/13/2020 Time: 10:40 Bed 12 Private MD: ED Physician Josue Morrow HPI: 04/13 12:25 This 29 yrs old Male presents to ER via Ambulatory with complaints of Flank pop Pain. 12:25 The patient complains of pain in the left low back and left mid back. The pain radiates pop to the left low back and left mid back. Onset: The symptoms/episode began/occurred 2 day(s) ago. Modifying factors: The symptoms are alleviated by nothing. the symptoms are aggravated by nothing. Associated signs and symptoms: The patient has no apparent associated signs or symptoms. Severity of pain: At its worst the pain was mild in the emergency department the pain is unchanged. The patient has not experienced similar symptoms in the past. Historical: - Allergies: 10:47 NSAIDS; ll1 - PMHx: 10:47 Anxiety; Depression; Kidney stones; ll1 - PSHx: 10:47 Lithotripsy; PRK; shoulder repair; ll1 - Immunization history:: Flu vaccine is not up to date. - Social history:: Smoking status: Patient denies any tobacco usage or history of. - Family history:: not pertinent. ROS: 12:25 Constitutional: Negative for fever, chills, and weight loss, Eyes: Negative for injury, pop pain, redness, and discharge, ENT: Negative for injury, pain, and discharge, Neck: Negative for injury, pain, and swelling, Cardiovascular: Negative for chest pain, palpitations, and edema, Respiratory: Negative for shortness of breath, cough, wheezing, and pleuritic chest pain, : Negative for injury, bleeding, discharge, and swelling, MS/Extremity: Negative for injury and deformity, Skin: Negative for injury, rash, and discoloration, Neuro: Negative for headache, weakness, numbness, tingling, and seizure, Psych: Negative for depression, anxiety, suicide ideation, homicidal ideation, and hallucinations, Allergy/Immunology: Negative for hives, rash, and allergies, Endocrine: Negative for neck swelling, polydipsia, polyuria, polyphagia, and marked weight changes, Hematologic/Lymphatic: Negative for swollen nodes, abnormal bleeding, and unusual bruising. 12:25 Abdomen/GI: Positive for abdominal pain, of the anterior aspect of left lateral abdomen, posterior aspect of left lateral abdomen, left upper quadrant and left lower quadrant. Exam: 12:25 Constitutional: This is a well developed, well nourished patient who is awake, alert, pop and in no acute distress. Head/Face: Normocephalic, atraumatic. Eyes: Pupils equal round and reactive to light, extra-ocular motions intact. Lids and lashes normal. Conjunctiva and sclera are non-icteric and not injected. Cornea within normal limits. Periorbital areas with no swelling, redness, or edema. ENT: Nares patent. No nasal discharge, no septal abnormalities noted. Tympanic membranes are normal and external auditory canals are clear. Oropharynx with no redness, swelling, or masses, exudates, or evidence of obstruction, uvula midline. Mucous membranes moist. Neck: Trachea midline, no thyromegaly or masses palpated, and no cervical lymphadenopathy. Supple, full range of motion without nuchal rigidity, or vertebral point tenderness. No Meningismus. Chest/axilla: Normal chest wall appearance and motion. Nontender with no deformity. No lesions are appreciated. Cardiovascular: Regular rate and rhythm with a normal S1 and S2. No gallops, murmurs, or rubs. Normal PMI, no JVD. No pulse deficits. Respiratory: Lungs have equal breath sounds bilaterally, clear to auscultation and percussion. No rales, rhonchi or wheezes noted. No increased work of breathing, no retractions or nasal flaring. Abdomen/GI: Soft, non-tender, with normal bowel sounds. No distension or tympany. No guarding or rebound. No evidence of tenderness throughout. Back: No spinal tenderness. No costovertebral tenderness. Full range of motion. Male : Normal genitalia with no discharge or lesions. Skin: Warm, dry with normal turgor. Normal color with no rashes, no lesions, and no evidence of cellulitis. MS/ Extremity: Pulses equal, no cyanosis. Neurovascular intact. Full, normal range of motion. Neuro: Awake and alert, GCS 15, oriented to person, place, time, and situation. Cranial nerves II-XII grossly intact. Motor strength 5/5 in all extremities. Sensory grossly intact. Cerebellar exam normal. Normal gait. Psych: Awake, alert, with orientation to person, place and time. Behavior, mood, and affect are within normal limits. Vital Signs: 10:47 BP 147 / 97; Pulse 99; Resp 18; Temp 97.2; Pulse Ox 96% ; Weight 102.06 kg; Height 5 ll1 ft. 8 in. (172.72 cm); Pain 7/10; 13:20 BP 163 / 64; Pulse 89; Resp 17; Pulse Ox 99% on R/A; tw2 10:47 Body Mass Index 34.21 (102.06 kg, 172.72 cm) ll1 MDM: 12:16 Patient medically screened. [facility] 12:27 Differential diagnosis: nephrolithiasis, pyelonephritis, UTI, pancreatitis. Data [facility] reviewed: vital signs, nurses notes, lab test result(s), radiologic studies, CT scan. Data interpreted: pvc monitor: rate is 99 beats/min, rhythm is regular, Pulse oximetry: on room air is 96 %. Counseling: I had a detailed discussion with the patient and/or guardian regarding: the historical points, exam findings, and any diagnostic results supporting the discharge/admit diagnosis, lab results, radiology results. 04/13 11:55 Order name: Urine Dipstick--Ancillary (enter results); Complete Time: 12:23 em1 04/13 12:25 Order name: CBC with Diff [facility] 04/13 12:25 Order name: Comprehensive Metabolic Panel [facility] 04/13 12:25 Order name: CT Stone Protocol [facility] 04/13 12:49 Order name: IV Start; Complete Time: 13:01 tw2 Administered Medications: 12:56 Drug: Zofran (Ondansetron) 4 mg Route: IVP; Site: right antecubital; tw2 13:55 Follow up: Response: No adverse reaction tw2 13:00 Drug: NS 0.9% 1000 ml Route: IV; Rate: 1 bolus; Site: right antecubital; tw2 13:45 Follow up: Response: No adverse reaction; IV Status: Completed infusion; IV Intake: tw2 1000ml 13:00 Drug: morphine 4 mg {Note: RASS 0.} Route: IVP; Site: right antecubital; tw2 13:45 Follow up: Response: No adverse reaction; Pain is decreased; RASS: Alert and Calm (0) tw2 13:28 Drug: Flomax 0.4 mg Route: PO; tw2 13:45 Follow up: Response: No adverse reaction tw2 Disposition: 04/13/20 13:16 Discharged to Home. Impression: Hydronephrosis with renal and ureteral calculous obstruction - 2 mm mid left calculus, mild hydronephrosis. - Condition is Stable. - Discharge Instructions: Kidney Stones, Kidney Stones, [id number], Hydronephrosis, Dietary Guidelines to Help Prevent Kidney Stones. - Prescriptions for Tylenol- Codeine #3 300-30 mg Oral Tablet - take 2 tablets by ORAL route every 6 hours As needed; 20 tablet. Zofran 4 mg Oral Tablet - take 1 tablet by ORAL route every 12 hours As needed; 20 tablet. Flomax 0.4 mg Oral Capsule, Sust. Release 24 hr - take 1 capsule by ORAL route once daily 1/2 hour following the same meal each day; 30 capsule. Cipro 500 mg Oral Tablet - take 1 tablet by ORAL route every 12 hours for 7 days; 14 tablet. - Medication Reconciliation Form, Thank You Letter, Antibiotic Education, Prescription Opioid Use form. - Follow up: Private Physician; When: 2 - 3 days; Reason: Recheck today's complaints, Continuance of care, Re-evaluation by your physician. Follow up: Blake Duarte MD; When: 2 - 3 days; Reason: Recheck today's complaints, Re-evaluation by your physician. - Problem is new. - Symptoms have improved. Signatures: Dispatcher [employer] EDSD Josue Morrow MD MD cha Wise, Tara RN RN tw2 Ac Campbell RN RN ll1 Corrections: (The following items were deleted from the chart) 13:45 13:16 04/13/2020 13:16 Discharged to Home. Impression: Hydronephrosis with renal and tw2 ureteral calculous obstruction - 2 mm mid left calculus, mild hydronephrosis. Condition is Stable. Forms are Medication Reconciliation Form, Thank You Letter, Antibiotic Education, Prescription Opioid Use. Follow up: Private Physician; When: 2 - 3 days; Reason: Recheck today's complaints, Continuance of care, Re-evaluation by your physician. Follow up: Blake Duarte; When: 2 - 3 days; Reason: Recheck today's complaints, Re-evaluation by your physician. Problem is new. Symptoms have improved. pop
[2020-04-13 13:25] LABS: Albumin 4.3 g/dL (3.4-5.0); Bilirubin Total 0.5 mg/dL (0.2-1.0); Potassium 3.8 mmol/L (3.5-5.1); Protein, Total 7.5 g/dL (6.4-8.2)
[2020-04-13] MEDS ORDERED: TAMSULOSIN 0.4 MG SR CAP ONE (13:26)
[2020-04-13 14:23] VITALS: BP 147/97; TEMP 97.2; O2SAT 96
== END 2020-04-13 13:45 | disposition home or self-care (01) ==
LOC: ER 10:36
DX: N13.2 Hydronephrosis with renal and ureteral calculous obstruction (principal); Z87.442 Personal history of urinary calculi; Z88.6 Allergy status to analgesic agent
CPT/HCPCS: 96361; 85025; 36415; 81003; 80053; 76377; 74176; 96375; 96374; 99284; J7030; J2405

== ENCOUNTER 2020-10-06 10:08 | Emergency (ER) | payer OTHER ==
--- OUTSIDE RECORDS SUMMARY | 2020-10-06 10:10 | XMS REPORT | Continuity of Care Document ---
:1990 Author Organization [facility] t Address [address] [place] [address] Care Team Providers Name Role Phone Asked, Pcp Primary Care Physician Unavailable Lynn Masterson Attending Clinician Problems This patient has no known problems. Allergies, Adverse Reactions, Alerts This patient has no known allergies or adverse reactions. Social History Social Habit Start Date Stop Date Quantity Comments Source Sex Assigned At [address] [facility] 00:00:00 00:00:00 Smoking Status Start Date Stop Date Source Unknown if ever smoked [facility] Medications This patient has no known medications. Procedures This patient has no known procedures. Plan of Care Planned Activity Planned Date Details Comments Source Future Scheduled Test COVID-19 VACCINE (1) [facility] [code = COVID-19 VACCINE (1)] Future Scheduled Test INFLUENZA VACCINE [facility] [code = INFLUENZA VACCINE] Encounters Start End Encounter Admission Attending Care Care Encounter Source Date/Time Date/Time Type Type Clinicians Facility Department ID 2019-04-19 2019-04-[address] [id number] 15:34:02 16:12:48 Visit [facility] [id number] Surgical [id number] Specialti [id number] [address] [place] Results This patient has no known results.
[2020-10-06 11:06] LABS: Absolute Lymphocytes (CBC) 2.1 K/uL (0.7-4.9); Basophils % 0.6 % (0-1.3); Hematocrit 46.6 % (39.6-49.0); Lymphocytes % 40.6 % (15.3-44.8); MPV 9.9 fL (7.6-11.3); RBC Red Blood Cell Count 5.33 M/uL (4.33-5.43)
--- NOTE | 2020-10-06 11:13 | RAD REPORT ---
EXAM DESCRIPTION: CT - Stone Protocol - 10/06/2020 10:46 am CLINICAL HISTORY: Flank pain. Left flank pain COMPARISON: Stone Protocol dated 04/13/2020 TECHNIQUE: Axial images were obtained without oral or IV contrast. Lack of contrast limits solid org an and vascular assessment. The [id number] spans the entirety of the system partially obscuring uppermost abdomen and lung bases. Coronal reformatted images were obtained and reviewed. All CT scans are performed using dose optimization technique as appropriate and may include automated exposure control or mA/KV adjustment according to patient size. FINDINGS: The lower lung wilkerson are clear. Imaged portions of the liver and spleen show no suspicious findings on non-contrast imaging. The panc reas and adrenal glands are normal. No pathologic lymphadenopathy in the abdomen or pelvis. There is a 7 mm stone mid left ureter with mild left hydronephrosis. No right-sided stone or hydronep hrosis seen. 24 mm cyst is present posterior cortex left kidney. No bowel obstruction, free air, free fluid or abscess. The appendix is not identified as a discrete s tructure, however, no secondary findings of appendicitis are identified. No significant bony abnormality. IMPRESSION: 7 mm stone mid left ureter with mild left hydronephrosis.
[2020-10-06 11:47] LABS: Albumin 4.2 g/dL (3.4-5.0); Bilirubin Direct 0.1 mg/dL (0-0.2); Bilirubin Total 0.6 mg/dL (0.2-1.0); Protein, Total 7.5 g/dL (6.4-8.2)
[2020-10-06 14:12] LABS: Urine Blood 2+ (Negative); Urine Glucose Negative (Negative); Urine Protein 1+ (Negative); Urine Specific Gravity >=1.030 (1.005-1.030); Urine pH 5.5 (5.0-7.0)
[2020-10-06] MEDS ORDERED: MORPHINE 4 MG/ML SYR ONE (14:48)
[2020-10-06] MEDS ORDERED: NA CHLORIDE 0.9% 500 ML ONE (14:48)
[2020-10-06] MEDS ORDERED: ONDANSETRON 4 MG/2 ML VIAL ONE (14:48)
--- NOTE | 2020-10-06 15:47 | EDPHYS ---
Physician Documentation [facility] Name: Ranjit Rutledge Age: 30 yrs Sex: Male : 1990 Arrival Date: 10/06/2020 Time: 10:11 Bed DX1 Private MD: ED Physician Ken Ly HPI: 10/06 10:33 This 30 yrs old Male presents to ER via Ambulatory with complaints of kdr Abdominal Pain and left flank pain. 10:33 The patient presents with abdominal pain Left flank pain. Onset: The symptoms/episode kdr began/occurred suddenly, and became persistent The patient has had intermittent left flank pain for the past 3 to 4 days. This is similar to his prior kidney stone presentation. He states that the pain has become worse and he is now no longer able to tolerate or manage it at home.. The symptoms radiate to the left flank. Associated signs and symptoms: Pertinent positives: nausea. The symptoms are described as achy, constant, crampy, vague. Modifying factors: The symptoms are alleviated by nothing, the symptoms are aggravated by nothing. Severity of pain: At its worst the pain was moderate severe just prior to arrival, in the emergency department the pain is unchanged. The patient has experienced similar episodes in the past, multiple times. The patient has not recently seen a physician. Historical: - Allergies: 10:22 NSAIDS; lm7 - PMHx: 10:22 Anxiety; Depression; Kidney stones; lm7 10:26 Irritable bowel syndrome; lm7 - PSHx: 10:26 lithotripsy and lazer surgeries for kidney stoneX8; lm7 - Immunization history:: Client reports having NOT received the Covid vaccine. Last tetanus immunization: not immunized Flu vaccine is not up to date. - Social history:: Smoking status: Patient denies any tobacco usage or history of. ROS: 10:33 Constitutional: Negative for fever, chills, and weight loss, Eyes: Negative for injury, kdr pain, redness, and discharge, Neck: Negative for injury, pain, and swelling, Cardiovascular: Negative for chest pain, palpitations, and edema, Respiratory: Negative for shortness of breath, cough, wheezing, and pleuritic chest pain, Back: Negative for injury and pain, : Negative for injury, bleeding, discharge, and swelling, MS/Extremity: Negative for injury and deformity, Skin: Negative for injury, rash, and discoloration, Neuro: Negative for headache, weakness, numbness, tingling, and seizure activity. Psych: Negative for depression, anxiety, suicide ideation, homicidal ideation, and hallucinations, Allergy/Immunology: Negative for hives, rash, and allergies, Endocrine: Negative for neck swelling, polydipsia, polyuria, polyphagia, and marked weight changes, Hematologic/Lymphatic: Negative for swollen nodes, abnormal bleeding, and unusual bruising. 10:33 Abdomen/GI: Positive for abdominal pain, Left flank pain. Exam: 10:33 Constitutional: This is a well developed, well nourished patient who is awake, alert, kdr and in no acute distress. Head/Face: Normocephalic, atraumatic. Eyes: Pupils equal round and reactive to light, extra-ocular motions intact. Lids and lashes normal. Conjunctiva and sclera are non-icteric and not injected. Cornea within normal limits. Periorbital areas with no swelling, redness, or edema. Neck: Trachea midline, no thyromegaly or masses palpated, and no cervical lymphadenopathy. Supple, full range of motion without nuchal rigidity, or vertebral point tenderness. No Meningismus. Chest/axilla: Normal chest wall appearance and motion. Nontender with no deformity. No lesions are appreciated. Cardiovascular: Regular rate and rhythm with a normal S1 and S2. No gallops, murmurs, or rubs. Normal PMI, no JVD. No pulse deficits. Respiratory: Lungs have equal breath sounds bilaterally, clear to auscultation and percussion. No rales, rhonchi or wheezes noted. No increased work of breathing, no retractions or nasal flaring. Abdomen/GI: Soft, non-tender, with normal bowel sounds. No distension or tympany. No guarding or rebound. No evidence of tenderness throughout. Skin: Warm, dry with normal turgor. Normal color with no rashes, no lesions, and no evidence of cellulitis. MS/ Extremity: Pulses equal, no cyanosis. Neurovascular intact. Full, normal range of motion. Neuro: Awake and alert, GCS 15, oriented to person, place, time, and situation. Cranial nerves II-XII grossly intact. Motor strength 5/5 in all extremities. Sensory grossly intact. Cerebellar exam normal. Normal gait. Psych: Awake, alert, with orientation to person, place and time. Behavior, mood, and affect are within normal limits. 10:33 Back: pain, that is mild, of the left mid back, ROM is painful, Minor. Vital Signs: 10:19 BP 132 / 85; Pulse 83; Resp 18; Temp 98.6(T); Pulse Ox 99% on R/A; Weight 99.79 kg; lm7 Height 5 ft. 8 in. (172.72 cm) (R); Pain 8/10; 10:19 Body Mass Index 33.45 (99.79 kg, 172.72 cm) lm7 MDM: 10:33 Data reviewed: vital signs, nurses notes, lab test result(s), radiologic studies. kdr Counseling: I had a detailed discussion with the patient and/or guardian regarding: the historical points, exam findings, and any diagnostic results supporting the discharge/admit diagnosis, lab results, radiology results, the need for outpatient follow up. 15:46 Patient medically screened. [facility] 10/06 10:33 Order name: Basic Metabolic Panel; Complete Time: 12:39 [facility] 10/06 10:33 Order name: CBC with Diff; Complete Time: 12:39 [facility] 10/06 10:33 Order name: Hepatic Function; Complete Time: 12:39 [facility] 10/06 10:33 Order name: Lipase; Complete Time: 12:39 [facility] 10/06 10:33 Order name: CT Stone Protocol [facility] 10/06 10:33 Order name: Stone Protocol; Complete Time: 12:39 [facility] 10/06 14:12 Order name: Urine Dipstick-Ancillary; Complete Time: 14:31 [facility] 10/06 10:33 Order name: IV Saline Lock; Complete Time: 10:44 [facility] 10/06 10:33 Order name: Labs collected and sent; Complete Time: 10:44 [facility] 10/06 10:33 Order name: Urine Dipstick-Ancillary (obtain specimen); Complete Time: 15:01 kdr Administered Medications: 14:32 Drug: NS 0.9% 500 ml Route: IV; Rate: bolus; Site: left antecubital; ss 14:33 Drug: Zofran (Ondansetron) 4 mg Route: IVP; Site: left antecubital; ss 15:00 Follow up: Response: No adverse reaction; Pain is decreased ss 14:33 Drug: morphine 4 mg Route: IVP; Site: left antecubital; 15:00 Follow up: Response: No adverse reaction; Pain is decreased ss Disposition Summary: 10/06/20 15:46 Discharge Ordered Location: Home kdr Problem: an acute exacerbation kdr Symptoms: have improved kdr Condition: Stable kdr Diagnosis - Kidney Stone/ Calculus in urethra kdr Followup: kdr - With: Private Physician - When: 2 - 3 days - Reason: If symptoms return, Further diagnostic work-up, Recheck today's complaints, Continuance of care, Re-evaluation by your physician Discharge Instructions: - Discharge Summary Sheet kdr - Kidney Stones, Ixwn-lm-Acns kdr - Flank Pain, Adult, [id number] kdr Forms: - Medication Reconciliation Form kdr - Thank You Letter kdr - Work release form Prescriptions: - Flomax 0.4 mg Oral capsule - take 1 capsule by ORAL route once daily 1/2 hour following the same meal each kdr day; 10 capsule; Refills: 0, Product Selection Permitted - acetaminophen-codeine 300-15 mg Oral tablet - take 1 tablet by ORAL route every 4-6 hours; 12 tablet; Refills: 0, Product kdr Selection Permitted - Zofran 4 mg Oral Tablet - take 1 tablet by ORAL route every 4-6 hours As needed; 12 tablet; Refills: 0, kdr Product Selection Permitted - Bactrim DS 800-160 mg Oral Tablet - take 1 tablet by ORAL route every 12 hours for 3 days; 6 tablet; Refills: 0, kdr Product Selection Permitted Signatures: Dispatcher [employer] EDMS Ken Ly MD MD [facility] Taisha Valle RN RN Shara Olivier lm7 Corrections: (The following items were deleted from the chart) 10:34 10:33 Basic Metabolic Panel ordered. EDMS EDMS 10:34 10:33 CBC with Automated Diff ordered. EDMS EDMS 10:34 10:33 Liver (Hepatic) Function ordered. EDMS EDMS 10:34 10:33 Lipase ordered. EDMS EDMS
--- NOTE | 2020-10-06 15:47 | ER ---
Nurse's Notes [facility] Name: Ranjit Rutledge Age: 30 yrs Sex: Male : 1990 Arrival Date: 10/06/2020 Time: 10:11 Bed DX1 Private MD: Diagnosis: Kidney Stone/ Calculus in urethra Presentation: 10/06 10:19 Chief complaint: Patient states: Pt reports L flank pain that radiates to RLQ lm7 abdomen/groin, started days ago, intermittently, pain returned this morning 8am. +nausea. HXX kidney stones. Pt reports he feels like he has kidney stone. Coronavirus screen: Client denies travel out of the [place] in the last 14 days. At this time, the client does not indicate any symptoms associated with coronavirus-19. Ebola Screen: Patient negative for fever greater than or equal to 101.5 degrees Fahrenheit, and additional compatible Ebola Virus Disease symptoms Patient denies exposure to infectious person. Patient denies travel to an Ebola-affected area in the 21 days before illness onset. Initial Sepsis Screen: Does the patient meet any 2 criteria? No. Patient's initial sepsis screen is negative. Does the patient have a suspected source of infection? No. Patient's initial sepsis screen is negative. Risk Assessment: Do you want to hurt yourself or someone else? Patient reports no desire to harm self or others. Onset of symptoms was October 06, 2020 at 08:00. 10:19 Method Of Arrival: Ambulatory lm7 10:19 Acuity: CELENA 3 lm7 Triage Assessment: 10:23 General: Appears uncomfortable, Behavior is calm, cooperative. Pain: Complains of pain lm7 in left flank, left lower abd Pain radiates to left groin Pain currently is 8 out of 10 on a pain scale. Quality of pain is described as. GI: Reports nausea. 10:26 : Reports inability to void. lm7 Historical: - Allergies: 10:22 NSAIDS; lm7 - PMHx: 10:22 Anxiety; Depression; Kidney stones; lm7 10:26 Irritable bowel syndrome; lm7 - PSHx: 10:26 lithotripsy and lazer surgeries for kidney stoneX8; lm7 - Immunization history:: Client reports having NOT received the Covid vaccine. Last tetanus immunization: not immunized Flu vaccine is not up to date. - Social history:: Smoking status: Patient denies any tobacco usage or history of. Assessment: 10:25 General: Nohemy Simmons at [place] [facility] to see pt in triage. lm7 15:20 Reassessment: Patient appears in no apparent distress at this time. Patient and/or ss family updated on plan of care and expected duration. Pain level reassessed. Patient is alert, oriented x 3, equal unlabored respirations, skin warm/dry/pink. Patient states feeling better. Patient states symptoms have improved. Pain: Complains of pain in left mid back Pain currently is 1 out of 10 on a pain scale. 16:05 Reassessment: Patient appears in no apparent distress at this time. Patient and/or ss family updated on plan of care and expected duration. Pain level reassessed. Vital Signs: 10:19 BP 132 / 85; Pulse 83; Resp 18; Temp 98.6(T); Pulse Ox 99% on R/A; Weight 99.79 kg; lm7 Height 5 ft. 8 in. (172.72 cm) (R); Pain 8/10; 10:19 Body Mass Index 33.45 (99.79 kg, 172.72 cm) lm7 ED Course: 10:11 Patient arrived in ED. mr 10:18 Ken Ly MD is Attending Physician. kdr 10:22 Triage completed. lm7 10:23 Arm band placed on right wrist. lm7 10:42 Octavia Barnett, MICHAEL is Primary Nurse. iw 10:44 Inserted saline lock: 20 gauge in left antecubital area, using aseptic technique. Blood mt collected. 10:46 Stone Protocol In Process Unspecified. EDMS 16:05 No provider procedures requiring assistance completed. IV discontinued, intact, ss bleeding controlled, No redness/swelling at site. Pressure dressing applied. Administered Medications: 14:32 Drug: NS 0.9% 500 ml Route: IV; Rate: bolus; Site: left antecubital; ss 14:33 Drug: Zofran (Ondansetron) 4 mg Route: IVP; Site: left antecubital; ss 15:00 Follow up: Response: No adverse reaction; Pain is decreased ss 14:33 Drug: morphine 4 mg Route: IVP; Site: left antecubital; ss 15:00 Follow up: Response: No adverse reaction; Pain is decreased ss Outcome: 15:46 Discharge ordered by . kdr 16:05 Discharged to home ambulatory. ss 16:05 Condition: improved 16:05 Discharge instructions given to patient, Instructed on discharge instructions, follow up and referral plans. medication usage, Demonstrated understanding of instructions, follow-up care, medications, Prescriptions given X 4. 16:05 Patient left the ED. Signatures: Dispatcher [employer] EDMS Ken Ly MD MD kdr Rivera, Julisa mr Octavia Barnett RN RN Taisha Valle RN RN ss Minter, Laura Eva Canseco ks
[2020-10-06 16:11] VITALS: BP 132/85; TEMP 98.6; O2SAT 99
== END 2020-10-06 16:05 | disposition home or self-care (01) ==
LOC: ER 10:08
DX: N20.0 Calculus of kidney (principal); N21.1 Calculus in urethra; Z87.442 Personal history of urinary calculi; Z88.6 Allergy status to analgesic agent
CPT/HCPCS: 85025; 80048; 36415; 80076; 81003; 83690; 76377; 74176; 96375; 96374; 99284; J7040; J2405

== ENCOUNTER 2020-10-18 13:05 | Emergency (ER) | payer OTHER ==
--- OUTSIDE RECORDS SUMMARY | 2020-10-18 13:08 | XMS REPORT | Continuity of Care Document ---
:1990 Author Organization [facility] t Address [address] [place] [address] Care Team Providers Name Role Phone Lynn Masterson Attending Clinician Problems This patient has no known problems. Allergies, Adverse Reactions, Alerts This patient has no known allergies or adverse reactions. Medications This patient has no known medications. Procedures This patient has no known procedures. Encounters Start End Encounter Admission Attending Care Care Encounter Source Date/Time Date/Time Type Type Clinicians Facility Department ID 2019-04-19 2019-04-[address] [id number] 48 15:34:02 16:12:48 Visit [facility] [id number] Surgical [id number] Specialti [id number] [address] Results This patient has no known results.
--- NOTE | 2020-10-18 14:19 | RAD REPORT ---
EXAM DESCRIPTION: RAD - Shoulder Right 2 View - 10/18/2020 2:03 pm CLINICAL HISTORY: PAIN COMPARISON: Shoulder Right 2 View dated 02/22/2019 FINDINGS: No bone or joint abnormality is detected.
--- NOTE | 2020-10-18 17:24 | EDPHYS ---
Physician Documentation [facility] Name: Ranjit Rutledge Age: 30 yrs Sex: Male : 1990 Arrival Date: 10/18/2020 Time: 13:06 Bed DX1 Private MD: Josue Qureshi HPI: 10/18 16:55 This 30 yrs old Male presents to ER via Ambulatory with complaints of cp Shoulder Injury. 16:55 The patient or guardian complains of pain, that is acute. right shoulder. cp 16:55 Context: resulted from lifting heavy furniture, The patient reports no decreased range cp of motion. The patient reports no obvious deformity. 16:55 Onset: The symptoms/episode began/occurred 3 day(s) ago. Modifying factors: The cp symptoms are aggravated by raising arm. Associated signs and symptoms: Pertinent negatives: chest pain, diaphoresis, neck pain, Numbness in right arm Weakness in right arm. 16:55 Patient reports history of right shoulder injury. cp Historical: - Allergies: 13:28 NSAIDS; ss - PMHx: 13:28 Anxiety; Depression; Irritable bowel syndrome; Kidney stones; ss - PSHx: 13:28 lithotripsy and lazer surgeries for kidney stoneX8; ss - Immunization history:: Client reports having NOT received the Covid vaccine. - Social history:: Smoking status: Patient denies any tobacco usage or history of. ROS: 17:03 MS/extremity: Positive for pain, Negative for decreased range of motion, deformity, cp paresthesias. 17:03 Constitutional: Negative for body aches, chills, fever, poor PO intake. cp 17:03 Respiratory: Negative for cough, shortness of breath, wheezing. 17:03 Abdomen/GI: Negative for abdominal pain, nausea, vomiting, and diarrhea. 17:03 All other systems are negative. Exam: 17:05 Constitutional: The patient appears in no acute distress, alert, awake, cp non-diaphoretic, non-toxic, well developed, well nourished. 17:05 Head/Face: Normocephalic, atraumatic. cp 17:05 Chest/axilla: Inspection: normal, Palpation: is normal, no crepitus, no tenderness. 17:05 Cardiovascular: Rate: normal, Pulses: Pulses are 2+ in right radial artery. 17:05 Respiratory: the patient does not display signs of respiratory distress, Respirations: normal, no use of accessory muscles, no retractions, labored breathing, is not present, Breath sounds: are clear throughout. 17:05 Abdomen/GI: Exam negative for discomfort, distension, guarding, Inspection: abdomen appears normal. 17:05 Back: pain, that is mild, of the right trapezius and right scapular area, ROM is normal. 17:05 Musculoskeletal/extremity: Extremities: grossly normal except: noted in the anterior aspect right shoulder: pain, tenderness, There is no evidence of decreased ROM, deformity, swelling, ROM: limited passive range of motion due to pain, in the right shoulder, the right arm Sensation intact. Vital Signs: 13:28 BP 127 / 88; Pulse 78; Resp 16; Temp 98.3(TE); Pulse Ox 98% on R/A; Weight 104.33 kg; ss Height 5 ft. 8 in. (172.72 cm); Pain 6/10; 13:28 Body Mass Index 34.97 (104.33 kg, 172.72 cm) ss MDM: 16:51 Patient medically screened. pop 17:00 Differential diagnosis: Anterior dislocation without fracture, Posterior dislocation cp without fracture, tendonitis. 17:24 Data reviewed: vital signs, nurses notes, radiologic studies, plain films. 17:24 Test interpretation: by ED physician or midlevel provider: plain radiologic studies. cp Counseling: I had a detailed discussion with the patient and/or guardian regarding: the historical points, exam findings, and any diagnostic results supporting the discharge/admit diagnosis, radiology results, the need for outpatient follow up, a orthopedic surgeon. 10/18 13:30 Order name: XRAY Shoulder RIGHT 2 view; Complete Time: 14:25 10/18 16:57 Interpretation: Reviewed. 10/18 16:59 Order name: Sling; Complete Time: 17:22 cp Administered Medications: 17:14 Drug: Tylenol 1000 mg Route: PO; aa5 17:14 Drug: Flexeril (cyclobenzaprine) 10 mg Route: PO; aa5 Disposition: 17:30 Chart complete. 10/19 14:50 Co-signature as Attending Physician, Josue Morrow MD I agree with the assessment and [facility] plan of care. Disposition Summary: 10/18/20 17:24 Discharge Ordered Location: Home cp Problem: new cp Symptoms: have improved cp Condition: Stable cp Diagnosis - Pain in right shoulder cp Followup: cp - With: Yaakov William MD - When: 2 - 3 days - Reason: Recheck today's complaints Discharge Instructions: - Discharge Summary Sheet cp - Shoulder Pain cp - Shoulder Range of Motion Exercises cp Forms: - Medication Reconciliation Form cp - Work release form aa5 - Thank You Letter cp - Antibiotic Education cp - Prescription Opioid Use cp Prescriptions: - Cyclobenzaprine 10 mg Oral Tablet - take 1 tablet by ORAL route every 8 hours As needed; 30 tablet; Refills: 0, cp Product Selection Permitted Signatures: Dispatcher [employer] EDLeeann Silva, BUTTON BUTTONHOLE MARKER-C BUTTON BUTTONHOLE MARKER-Josue Hughes MD MD cha Calderon, Audri RN RN aa5 Taisha Valle RN RN ss Josue Lowe, PA PA cp Corrections: (The following items were deleted from the chart) 16:40 16:37 Context: resulted from cp cp
--- NOTE | 2020-10-18 17:24 | ER ---
Nurse's Notes [facility] Name: Ranjit Rutledge Age: 30 yrs Sex: Male : 1990 Arrival Date: 10/18/2020 Time: 13:06 Bed DX1 Private MD: Diagnosis: Pain in right shoulder Presentation: 10/18 13:28 Chief complaint: Patient states: R shoulder pain x 3 days. Coronavirus screen: Client ss denies travel out of the [place] in the last 14 days. Ebola Screen: Patient denies exposure to infectious person. Patient denies travel to an Ebola-affected area in the 21 days before illness onset. Initial Sepsis Screen: Does the patient meet any 2 criteria? No. Patient's initial sepsis screen is negative. Does the patient have a suspected source of infection? No. Patient's initial sepsis screen is negative. Risk Assessment: Do you want to hurt yourself or someone else? Patient reports no desire to harm self or others. Onset of symptoms was October 15, 2020. 13:28 Method Of Arrival: Ambulatory ss 13:28 Acuity: CELENA 4 ss Historical: - Allergies: 13:28 NSAIDS; ss - PMHx: 13:28 Anxiety; Depression; Irritable bowel syndrome; Kidney stones; ss - PSHx: 13:28 lithotripsy and lazer surgeries for kidney stoneX8; ss - Immunization history:: Client reports having NOT received the Covid vaccine. - Social history:: Smoking status: Patient denies any tobacco usage or history of. Assessment: 17:35 Reassessment: Patient is alert, oriented x 3, equal unlabored respirations, skin aa5 warm/dry/pink. Vital Signs: 13:28 BP 127 / 88; Pulse 78; Resp 16; Temp 98.3(TE); Pulse Ox 98% on R/A; Weight 104.33 kg; ss Height 5 ft. 8 in. (172.72 cm); Pain 6/10; 13:28 Body Mass Index 34.97 (104.33 kg, 172.72 cm) ED Course: 13:06 Patient arrived in ED. as 13:28 Arm band placed on left wrist. ss 13:30 Triage completed. ss 14:03 XRAY Shoulder RIGHT 2 view In Process Unspecified. EDMS 14:14 Leeann Bains FNP-C is PHCP. kb 14:14 Josue Morrow MD is Attending Physician. kb 16:48 Josue Lowe PA is PHCP. cp 16:48 Josue Morrow MD is Attending Physician. cp 17:21 Sling applied to right arm. jp3 17:23 Yaakov William MD is Referral Physician. cp 17:35 No provider procedures requiring assistance completed. Patient did not have IV access aa5 during this emergency room visit. Administered Medications: 17:14 Drug: Tylenol 1000 mg Route: PO; aa5 17:14 Drug: Flexeril (cyclobenzaprine) 10 mg Route: PO; aa5 Outcome: 17:24 Discharge ordered by MD. cp 17:35 Discharged to home ambulatory. aa5 17:35 Condition: stable 17:35 Discharge instructions given to patient, Instructed on discharge instructions, follow up and referral plans. medication usage, Demonstrated understanding of instructions, follow-up care, medications, Prescriptions given X 1. 17:37 Patient left the ED. aa5 Signatures: Dispatcher [employer] EDMS Leeann Bains FNP-C FNP-Ckb Martinez, Amelia as Calderon, Audri, RN RN aa5 Taisha Valle RN RN ss Josue Lowe PA PA cp Tacho Ordonez jp3
[2020-10-18] MEDS ORDERED: CYCLOBENZAPRINE 10 MG TAB ONE (17:27)
[2020-10-18] MEDS ORDERED: ACETAMINOPHEN 500 MG TAB ONE (17:27)
[2020-10-18 17:43] VITALS: BP 127/88; TEMP 98.3; O2SAT 98
== END 2020-10-18 17:37 | disposition home or self-care (01) ==
LOC: ER 13:05
DX: M25.511 Pain in right shoulder (principal); Z88.6 Allergy status to analgesic agent
CPT/HCPCS: 99284

== ENCOUNTER 2021-05-08 12:07 | Emergency (ER) | payer OTHER ==
--- OUTSIDE RECORDS SUMMARY | 2021-05-08 12:11 | XMS REPORT | Continuity of Care Document ---
:1990 Author Organization [facility] t Address [address] [place] [address] Care Team Providers Name Role Phone Asked, Pcp Primary Care Physician Unavailable Lynn STREET Attending Clinician Unavailable Silvia GLASER S Attending Clinician Andra Velasquez MD Attending Clinician Doctor Unassigned, Name Attending Clinician Unavailable Pob, Lab Main Attending Clinician Unavailable Andra VELASQUEZ Attending Clinician Unavailable Jean ROBERTSON Attending Clinician Unavailable Andra Velasquez MD Admitting Clinician Andra VELASQUEZ Admitting Clinician Unavailable Jean ROBERTSON Admitting Clinician Unavailable Payers Payer Name Policy Type Policy Number Effective Date Expiration Date Lynn OJEDA [id number] 2019 00:00:00 Problems Condition Condition Condition Status Onset Resolution Last Treating Co mments Source Name Details Category Date Date Treatment Clinician Date Obesity Obesity Disease Active Univers (BMI (BMI 2-10 ity of 30-39.9) 30-39.9) 00:00: [address] Internal Internal Disease Active Overview: Un ariane dowell 1-30 Added it y of t of right t of right 00:00: automatic [place] shoulder shoulder 00 ally from [facility] Branch for surgery [id number] No known No known Disease Unive rs active active ity of problems problems [facility] Allergies, Adverse Reactions, Alerts Allergy Allergy Status Severity Reaction(s) Onset Inactive Treating Comm ents Source Name Type Date Date Clinician Nsaids Propensi Active Other - See States he Univers (Non-[place] to comments 1-15 has a ity of roidal adverse 00:00: thin [place] Anti-Inf reaction 00 stomach Medic al lammator s esophagus Branc h y Drug) lining. NSAIDS Drug Active Other-Cmnt 0 Univer s (NON-MICHA Class 1-15 ity of ROIDAL 00:00: [place] ANTI-INF 00 Medical LAMMATOR Branch Y DRUG) Social History Social Habit Start Date Stop Date Quantity Comments Source History of Cigarette Smoker Universi ty of tobacco use [facility] Sex Assigned At Universit y of [facility] Alcohol intake 2019-04-19 2019-04-19 [facility] 00:00:00 00:00:00 [facility] Smoking Status Start Date Stop Date Source Unknown if ever smoked [facility] Never smoker [facility] Medications Ordered Filled Start Stop Current Ordering Indication Dosage Frequency Signature Comments Components Source Medication Medication Date Date Medication? Clinician (SIG) Name Name EPINEPHrine Yes PRN, Univer s (PF) 2-10 Starting ity of 1:1,000 (1 17:03: Mon [place] mg/mL) 00 04/05/19 at Medical (ADRENALIN 1103, Branch (PF)) Until injection Discontinu ed, Routine, Intra-op ondansetron 2019-0 Yes 4mg 4 mg, Slow Univers (ZOFRAN 2-10 IV Push, ity of (PF)) 17:01: PRN, 1 [place] injection 4 26 dose, Medical mg Starting Branch 04/05/19 at 1101, Until Discontinu ed, Routine, Nausea and Vomiting (N/V), PACU FENTanyl PF 2019-0 Yes 50ug 50 mcg, Uni vers (SUBLIMAZE 2-10 Slow IV ity of (PF)) 17:01: Push, [place] injection 25 Q5MIN PRN, Medi roverto 50 mcg 2 doses, Branch Starting 04/05/19 at 1101, Until Discontinu ed, Routine, Pain (scale 4-6), PACU HYDROcodone 2019-0 Yes 1{tbl} 1 tablet, Univers -acetaminop 2-10 Oral, ity of hen (NORCO) 15:50: Q6HPRN, [place] 10-325 mg 58 Starting Medica l tablet 1 Mon Branch tablet 04/05/19 at 0950, Until Discontinu ed, Routine, Pain (scale 7-10) HYDROcodone 2019-0 Yes 1{tbl} 1 tablet, Univers -acetaminop 2-10 Oral, ity of [place] (NORCO 15:50: Q4HPRN, [place] 5) 5-325 mg 48 Starting Medi roverto tablet 1 Mon Branch tablet 04/05/19 at 0950, Until Discontinu ed, Routine, Pain (scale 4-6) lactated 2019-2019- No 1000mL at 20 Unive rs ringers IV 2-10 02-10 mL/hr, ity of infusion 13:00: 13:14 1,000 mL, [place] 1,000 mL 00 :00 IV Medical Infusion, Branch ONCE, 1 dose, Fri04/05/19 at 0700, Routine, DSU Pre-op acetaminoph 2019- 2020- No [id number] 1{tbl} Take 1 Univers en-codeine 2-10 -18 tablet by ity of 300-30 mg 00:00: 05:59 mouth [place] tablet 00 :00 every 6 Medical (six) Branch hours as needed for Pain (scale 4-6) or Pain (scale 7-10) for up to 7 days. acetaminoph 2019-2019- No [id number] 1{tbl} Take 1 Univers en-codeine 2-10 -18 tablet by ity of 300-30 mg 00:00: 05:59 mouth [place] tablet 00 :00 every 6 Medical (six) Branch hours as needed for Pain (scale 4-6) or Pain (scale 7-10) for up to 7 days. acetaminoph 2019- 2020- No [id number] 1{tbl} Take 1 Univers en-codeine 2-10 02-18 tablet by ity of 300-30 mg 00:00: 05:59 mouth [place] tablet 00 :00 every 6 Medical (six) Branch hours as needed for Pain (scale 4-6) or Pain (scale 7-10) for up to 7 days. ceFAZolin 2019- 2020- No 2g Univers in dextrose 2-04 25-03 ity of (iso-os) 06:00: 17:59 [place] (ANCEF) 2 00 :00 Medical gram/100 mL Branch Piggyback 2 g oxyCODONE-a 2020-0 2020- No 2{tbl} Uni vers cetaminophe 2-03 03 ity of n 06:00: 17:59 [place] (PERCOCET) 00 :00 Medical 5-325 mg Branch per tablet 2 tablet diclofenac 2020-0 Yes 75mg Take 1 Unive rs 75 mg EC 1-14 tablet by ity of tablet 00:00: mouth 2 [place] (two) Medical times Branch daily with meals. diclofenac 2020-0 Yes 75mg Take 1 Unive rs 75 mg EC 1-14 tablet by ity of tablet 00:00: mouth 2 [place] (two) Medical times Branch daily with meals. diclofenac 2020-0 Yes 75mg Take 1 Unive rs 75 mg EC 1-14 tablet by ity of tablet 00:00: mouth 2 [place] (two) Medical times Branch daily with meals. diclofenac 2020-0 Yes 75mg Take 1 Unive rs 75 mg EC 1-14 tablet by ity of tablet 00:00: mouth 2 [place] (two) Medical times Branch daily with meals. diclofenac 2020-0 Yes 75mg Take 1 Unive rs 75 mg EC 1-14 tablet by ity of tablet 00:00: mouth 2 [place] (two) Medical times Branch daily with meals. diclofenac 2020-0 Yes 75mg Take 1 Unive rs 75 mg EC 1-14 tablet by ity of tablet 00:00: mouth 2 [place] (two) Medical times Branch daily with meals. diclofenac 2020-0 Yes 75mg Take 1 Unive rs 75 mg EC 1-14 tablet by ity of tablet 00:00: mouth 2 [place] (two) Medical times Branch daily with meals. diclofenac 2020-0 Yes 75mg Take 1 Unive rs 75 mg EC 1-14 tablet by ity of tablet 00:00: mouth 2 [place] (two) Medical times Branch daily with meals. diclofenac 2020-0 Yes 75mg Take 1 Unive rs 75 mg EC 1-14 tablet by ity of tablet 00:00: mouth 2 [place] (two) Medical times Branch daily with meals. diclofenac 2020-0 2020- No 75mg Take 1 Univ ers 75 mg EC 1-14 03-26 tablet by ity o f tablet 00:00: 00:00 mouth 2 [place] 00 :00 (two) Medical times Branch daily with meals. traMADol 50 2018-02 Yes [id number] 50mg Take 1 Univers mg tablet 2-21 tablet by ity o f 00:00: mouth [place] 00 every 6 Medical (six) Branch hours as needed for Pain (scale 7-10). cyclobenzap 2018-02 Yes [id number] 10mg Take 1 Univers rine 10 mg 2-21 tablet by ity of tablet 00:00: mouth 3 [place] 00 (three) Medical times Branch daily as needed for Muscle Spasms. traMADol 50 2018-02 Yes [id number] 50mg Take 1 Univers mg tablet 2-21 tablet by ity o f 00:00: mouth [place] 00 every 6 Medical (six) Branch hours as needed for Pain (scale 7-10). cyclobenzap 2018-02 Yes [id number] 10mg Take 1 Univers rine 10 mg 2-21 tablet by ity of tablet 00:00: mouth 3 [place] 00 (three) Medical times Branch daily as needed for Muscle Spasms. traMADol 50 2018-02 Yes [id number] 50mg Take 1 Univers mg tablet 2-21 tablet by ity o f 00:00: mouth [place] 00 every 6 Medical (six) Branch hours as needed for Pain (scale 7-10). cyclobenzap 2018-02 Yes [id number] 10mg Take 1 Univers rine 10 mg 2-21 tablet by ity of tablet 00:00: mouth 3 [place] 00 (three) Medical times Branch daily as needed for Muscle Spasms. traMADol 50 2018-02 Yes [id number] 50mg Take 1 Univers mg tablet 2-21 tablet by ity o f 00:00: mouth [place] 00 every 6 Medical (six) Branch hours as needed for Pain (scale 7-10). cyclobenzap 2018-02 Yes [id number] 10mg Take 1 Univers rine 10 mg 2-21 tablet by ity of tablet 00:00: mouth 3 [place] 00 (three) Medical times Branch daily as needed for Muscle Spasms. traMADol 50 2018-02 Yes [id number] 50mg Take 1 Univers mg tablet 2-21 tablet by ity o f 00:00: mouth [place] 00 every 6 Medical (six) Branch hours as needed for Pain (scale 7-10). cyclobenzap 2018-02 Yes [id number] 10mg Take 1 Univers rine 10 mg 2-21 tablet by ity of tablet 00:00: mouth 3 [place] 00 (three) Medical times Branch daily as needed for Muscle Spasms. traMADol 50 2018-02 Yes [id number] 50mg Take 1 Univers mg tablet 2-21 tablet by ity o f 00:00: mouth [place] 00 every 6 Medical (six) Branch hours as needed for Pain (scale 7-10). cyclobenzap 2018-02 Yes [id number] 10mg Take 1 Univers rine 10 mg 2-21 tablet by ity of tablet 00:00: mouth 3 [place] 00 (three) Medical times Branch daily as needed for Muscle Spasms. traMADol 50 2018-02 Yes [id number] 50mg Take 1 Univers mg tablet 2-21 tablet by ity o f 00:00: mouth [place] 00 every 6 Medical (six) Branch hours as needed for Pain (scale 7-10). cyclobenzap 2018-02 Yes [id number] 10mg Take 1 Univers rine 10 mg 2-21 tablet by ity of tablet 00:00: mouth 3 [place] 00 (three) Medical times Branch daily as needed for Muscle Spasms. traMADol 50 2018-02 Yes [id number] 50mg Take 1 Univers mg tablet 2-21 tablet by ity o f 00:00: mouth [place] 00 every 6 Medical (six) Branch hours as needed for Pain (scale 7-10). cyclobenzap 2018-02 Yes [id number] 10mg Take 1 Univers rine 10 mg 2-21 tablet by ity of tablet 00:00: mouth 3 [place] 00 (three) Medical times Branch daily as needed for Muscle Spasms. traMADol 50 2018-02 Yes [id number] 50mg Take 1 Univers mg tablet 2-21 tablet by ity o f 00:00: mouth [place] 00 every 6 Medical (six) Branch hours as needed for Pain (scale 7-10). cyclobenzap 2018-02 Yes [id number] 10mg Take 1 Univers rine 10 mg 2-21 tablet by ity of tablet 00:00: mouth 3 [place] 00 (three) Medical times Branch daily as needed for Muscle Spasms. traMADol 50 2018-02 Yes [id number] 50mg Take 1 Univers mg tablet 2-21 tablet by ity o f 00:00: mouth [place] 00 every 6 Medical (six) Branch hours as needed for Pain (scale 7-10). cyclobenzap 2018-02 Yes [id number] 10mg Take 1 Univers rine 10 mg 2-21 tablet by ity of tablet 00:00: mouth 3 [place] 00 (three) Medical times Branch daily as needed for Muscle Spasms. traMADol 50 2018-02 2020- No [id number] 50mg Take 1 Univers mg tablet 04-16 tablet by ity of 00:00: 00:00 mouth [place] 00 :00 every 6 Medical (six) Branch hours as needed for Pain (scale 7-10). cyclobenzap 2018-02 2020- No [id number] 10mg Take 1 Univers rine 10 mg 04-16 tablet by ity of tablet 00:00: 00:00 mouth 3 [place] 00 :00 (three) Medical times Branch daily as needed for Muscle Spasms. No known No [facility] No known No [facility] No known No [facility] medications [facility] No known No [facility] medications [facility] No known No [facility] medications [facility] No known No [facility] medications [facility] No known No [facility] Vital Signs Vital Name Observation Time Observation Value Comments Source Systolic blood 2019-04-19 21:43:00 114 mm[Hg] Univer sity [facility] Diastolic blood 2019-04-19 21:43:00 83 mm[Hg] Unive rsity of [facility] Heart rate 2019-04-19 21:43:00 87 /min Universi ty [facility] Body height 2019-04-19 21:43:00 172.7 cm Universi ty [facility] Body weight 2019-04-19 21:43:00 104.327 kg Universi ty [facility] BMI 2019-04-19 21:43:00 34.97 kg/m2 Universi ty [facility] Systolic blood 2019-04-19 21:43:00 114 mm[Hg] Univer sity of [facility] Diastolic blood 2019-04-19 21:43:00 83 mm[Hg] Unive rsity of [facility] Heart rate 2019-04-19 21:43:00 87 /min Universi ty [facility] Body height 2019-04-19 21:43:00 172.7 cm Universi ty [facility] Body weight 2019-04-19 21:43:00 104.327 kg Universi ty [facility] BMI 2019-04-19 21:43:00 34.97 kg/m2 Universi ty of [facility] Systolic blood 2019-04-05 17:27:00 132 mm[Hg] Univer sity of pressure [facility] Diastolic blood 2019-04-05 17:27:00 83 mm[Hg] Unive rsity of pressure [facility] Heart rate 2019-04-05 17:27:00 85 /min Universi ty of [facility] Body temperature 2019-04-05 17:27:00 20.06 [facility] Respiratory rate 2019-04-05 17:27:00 18 /min [facility] Oxygen saturation in 2019-04-05 17:27:00 97 /min [facility] Arterial blood by [facility] Pulse oximetry Branch Body height 2019-04-01 16:00:00 172.7 cm Universi ty of [facility] Body weight 2019-04-01 16:00:00 104.327 kg Universi ty of [facility] BMI 2019-04-01 16:00:00 34.97 kg/m2 Universi ty of [facility] Body height 2019-03-24 19:13:00 172.7 cm Universi ty of [facility] Body weight 2019-03-24 19:13:00 102.059 kg Universi ty of [place] [facility] Branch BMI 2019-03-24 19:13:00 34.21 kg/m2 Universi ty of [place] [facility] [place] Body height 2019-03-23 19:47:00 172.7 cm Universi ty of [place] [facility] [place] Body weight 2019-03-23 19:47:00 102.059 kg Universi ty of [facility] BMI 2019-03-23 19:47:00 34.21 kg/m2 Universi ty of [facility] Procedures Procedure Date / Time Performing Clinician Source Performed AUTHORIZATION FOR RELEASE 2019-04-05 06:01:00 Doctor Unassigned, [facility] [place] [facility] URINALYSIS 2019-04-02 17:30:00 Myra Velasquez [facility] COMP. METABOLIC PANEL 2019-04-02 17:15:00 Myra Velasquez [facility] ([id number]) [facility] CBC WITH DIFFERENTIAL 2019-04-02 17:15:00 Myra Velasquez [facility] PROTHROMBIN TIME / INR 2019-04-02 17:15:[address] [facility] ACTIVATED PARTIAL 2019-04-02 17:15:00 Myra Velasquez [facility] XR CHEST 1 VW 2019-04-02 17:08:00 Myra Velasquez [facility] ASSIGNMENT OF BENEFITS 2019-04-02 16:26:21 Doctor [facility], [facility] [place] [facility] INSURANCE CORRESPONDENCE 2019-03-26 06:01:00 Doctor Unacorey, [facility] [place] [facility] DISCLOSURE AND CONSENT, 2019-03-24 06:01:00 [facility] [place] [facility] nc PROCEDURES MR SHOULDER RIGHT WO 2019-03-23 20:24:21 Myra Velasquez [facility] CONSENT/REFUSAL FOR 2019-03-23 18:50:01 [facility] DIAGNOSIS AND TREATMENT [place] [facility] ASSIGNMENT OF BENEFITS 2019-03-23 18:49:45 Doctor [facility]igned, [facility] [place] [facility] INSURANCE CORRESPONDENCE 2019-02-23 06:01:00 Doctor Kiannaanne, [facility] [place] [facility] Plan of Care Planned Activity Planned Date Details Comments Source Future Scheduled Test COVID-19 VACCINE (1) [facility] [code = COVID-19 VACCINE (1)] Future Scheduled Test INFLUENZA VACCINE [facility] [code = INFLUENZA VACCINE] Encounters Start End Encounter Admission Attending Care Care Encounter Source Date/Time Date/Time Type Type Clinicians Facility Department ID 2019-04-19 2019-04-19 Outpatient R SILVIA MEHOLLY [facility] [id number] Univers 16:15:00 16:15:00 CARLOS duarte [facility] 2019-04-19 2019-04-[address] [id number] Univers 15:34:02 16:12:48 Visit Carlos [facility] [id number] it y of Surgical 4.2.7.2.686 [place] Specialti [id number] Ga dical 198 Branch Cool 2019-04-19 2019-04-[address] 1.2.840.114 [id number] 15:34:02 16:12:48 Visit [facility] [id number] Surgical 4.2.7.2.686 Specialti [id number] idania Echeverria 2019-04-05 2019-04-05 [facility] [id number] Univers 06:57:00 12:04:00 Encounter Myra Silverman Jacki [id number] ity of [place]2.[place] Surgical [id number] [facility] 071 Branch 2019-04-05 2019-04-05 Orders Doctor LEDY 1.2.840.114 [id number] Univers 00:00:00 00:00:00 Only Unassigned, JAMIE 350.1.13.10 ity of [place] [facility] 4.2.7.2.686 [place] as [id number] [facility] 009 [place] 2019-04-02 2019-04-02 Production Supervisor Trainee Ellen, Daniel Lab Main [facility] 1.2.8 40.114 [id number] Univers 10:28:59 10:43:59 Visit Myra Velasquez 350.1.13.10 ity of [place] 4.2.7.2.686 [place] Professio [id number] Ga dical [facility] 353 [facility] 2019-04-02 2019-04-02 Outpatient R ROMINATHE [facility] [id number] Univers 10:32:04 08:59:00 MYRA ity [facility] 2019-04-02 2019-04-02 [facility] 1.2.840.114 [id number] Univers 08:00:00 08:59:00 Encounter Myra [place] 350.1.13.10 ity of [place] 4[place].2.686 [place] [id number] [facility] 807 Branch 2019-04-02 2019-04-02 Orders Doctor LEDY 1.2.840.114 [id number] Univers 00:00:00 00:00:00 Only Unassigned, JAMIE 350.1.13.10 ity of [place] [facility] 4.2.7.2.686 [place] [id number] [facility] 009 Branch 2019-03-29 2019-03-29 Prep For Romina [facility] 1.2.840.114 [id number] Univers 00:00:00 00:00:00 Surgery Myra Silverman [facility] 350.1.13.10 it y of Surgical 4.2.7.2.686 [place] Specialti [phone] Ga dical es 198 [facility] 2019-03-26 2019-03-26 Orders Doctor LEDY 1.2.840.114 [id number] Univers 00:00:00 00:00:00 Only Unassigned, JAMIE 350.1.13.10 ity of [place] [facility] 4.2.7.2.686 [place] as [id number] [address] 2019-03-24 2019-03-24 Office Romina [facility] [id number] Univers 12:58:00 13:50:22 Visit Myra Lance 350.1.13.10 it y of Surgical 4.2.7.2.686 [place] Specialti [phone] Ga dical es 198 [facility] 2019-03-24 2019-03-24 Telephone [facility] [id number] Univers 00:00:00 00:00:00 Carlos S [facility] 350.1.13.10 it y of Surgical 4.2.7.2.686 [place] Specialti [id number] Ga dical es 198 [facility] 2019-03-24 2019-03-24 Orders Doctor VILLAFANA 1.2.840.114 [id number] Univers 00:00:00 00:00:00 Only Unassigned, JAMIE 350.1.13.10 ity of [place] [facility] 4.2.7.2.686 [place] as [id number] [facility] 009 [place] 2019-03-23 2019-03-23 [facility] 1.2.840.114 [id number] Univers 12:52:00 23:59:00 Encounter Myra Echeverria 350.1.13.10 ity of [place] 4[place]2.7.2.[place] [id number] [facility] 804 [place] 2019-03-16 2019-03-16 [facility] 1.2.840.114 [id number] Univers 00:00:00 00:00:00 Myra Silverman Health 350.1.13.10 it y of Surgical 4.2.7.2.686 [place] Specialti [phone] Ga dical es 198 [facility] 2019-03-11 2019-03-11 Telephone [facility] 1.2.840.114 [id number] Univers 00:00:00 00:00:00 Myra Echeverria 350.1.13.10 i ty of [place] 4.2.7.2.[place] Profess[place] [id number] Ga dical nal 198 [facility] 2019-03-10 2019-03-10 [facility] 1.2.840.114 [id number] Univers 00:00:00 00:00:00 Myra Silverman Health 350.1.13.10 it y of Surgical 4.2.7.2.686 [place] Specialti [id number] Ga dical es 198 [facility] 2019-03-09 2019-03-09 Telephone [facility] [id number] Univers 00:00:00 00:00:00 Carlos Echeverria 350.1.13.10 i ty of [place] 4.2.7.2.[place] Profess[place] [phone] Ga dical nal [address] [place] [address] 2019-02-23 2019-02-23 Orders Doctor LEDY 1.2.840.114 [id number] Univers 00:00:00 00:00:00 Only Unassigned, JAMIE 350.1.13.10 ity of [place] [facility] 4.2.7.2.686 Virgil as [id number] [address] 2019-02-13 2019-02-13 Emergency [facility] ERT [id number] Univers 16:58:49 18:41:00 JUANCHO duarte of [facility] Results Test Description Test Time Test Comments Results Result Comments Source COMP. METABOLIC PANEL (35294) 2019-04-02 18:22:00 Test Item Value Reference Range Interpretation Comme nts NA (test code = 9617778037) 139 mmol/L 135-145 K (test code = 8764586116) 4.4 mmol/L 3.5-5 CL (test code = 5305950934) 100 mmol/L 98-108 CO2 TOTAL (test code = 31 mmol/L 23-31 8358358545) AGAP (test code = 7267545761) 2-16 BUN (test code = 5161995570) 14 mg/dL 7-23 GLUCOSE (test code = 6076126216) 78 mg/dL 70-110 CREATININE (test code = 0.92 mg/dL 0.6-1.25 4447317119) TOTAL BILI (test code = 0.6 mg/dL 0.1-1.7 8395872379) CALCIUM (test code = 6811416954) 10.2 mg/dL 8.6-10.6 T PROTEIN (test code = 7.7 g/dL 6.3-8.2 8993388469) ALBUMIN (test code = 0276763745) 5.0 g/dL 3.5-5 ALK PHOS (test code = 7726925228) 75 U/L 34-122 ALTv (test code = 1742-6) 36 U/L 5-50 AST(SGOT) (test code = 26 U/L 13-40 2309498058) eGFR Calculation (Non- mL/min/1.73m2 [place]) (test code = 4482442052) eGFR Calculation ( mL/min/1.73m2 [place]) (test code = 1927104865) CARINA (test code = CARINA) Association of Glomerular Filtration Rate (GFR) and Staging of Kidney Disease* + +--------- + ----+| GFR (mL/min/1.73 m2) ?| With Kidney Damage ?| ?Without Kidney Damage+ +--- + +| ?>90 ?| ?Stage one ?| ? Normal ?+ +-------- + -----+| ?60-89 ?| ?Stage two ?| ? Decreased GFR ? + +--------- + ----+| ?30-59 ?| ?Stage three ?| ? Stage three ? + +--------- + ----+| ?15-29 ?| ?Stage four ? | ? Stage four ?+ +-------- + -----+| ?<15 (or dialysis) ? ?| ?Stage five ? | ? Stage five ?+ +-------- + -----+ *Each stage assumes the associated GFR level has been in effect for at least three months. ?Stages 1 to 5, with or without kidney disease, indicate chronic kidney disease. Notes: Determination of stages one and two (with eGFR >59mL/min/1.73 m2) requires estimation of kidney damage for at least three months as defined by structural or functional abnormalities of the kidney, manifested by either:Pathological abnormalities or Markers of kidney damage (including abnormalities in the composition of the blood or urine or abnormalities in imaging tests). [facility]00 Test Item Value Reference Range Interpretation Comments APPEARANCE (test code = Clear Clear 7829627030) COLOR (test code = Yellow Yellow 3975709912) PH (test code = 4.8-8.0 5315286205) SP GRAVITY (test code = 1.003-1.030 9254723216) GLU U QUAL (test code = Normal Normal 7302839414) BLOOD (test code = Negative Negative 1311639545) KETONES (test code = Negative Negative 6689763683) PROTEIN (test code = Negative Negative 2887-8) UROBILIN (test code = Normal Normal 6196833084) BILIRUBIN (test code = Negative Negative 7383361929) NITRITE (test code = Negative Negative 6508888046) LEUK HERBERT (test code = Negative Negative 3452158717) RBC/HPF (test code = <1 See_Comment [Autom ated message] 9808041729) The system 20:20 Mobile generated this result transmitted ref erence range: 0 - 3 HP F. The reference range was not used to int erpret this result as normal/abnormal . WBC/HPF (test code = <1 See_Comment [Autom ated message] 8930770985) The system 20:20 Mobile generated this result transmitted ref erence range: 0 - 5 HP F. The reference range was not used to int erpret this result as normal/abnormal . BACTERIA (test code = Negative Negative 7816120943) MUCOUS (test code = Slight Negative LPF A 6531966765) Lab Interpretation (test Abnormal code = 12710-1) [facility] [id number] 17:30:00 Test Item Value Reference Range Interpretation Comments WBC (test code = See_Comment [Automated 6690-2) message] The sy stem which generated this result transmitted reference range : 4.20 - 10.70 10*3/?L. The reference range was not used to interpret this result as normal/abnormal . RBC (test code = See_Comment H [Automated 789-8) message] The sy stem which generated this result transmitted reference range : 4.26 - 5.52 10*6/?L. The reference range was not used to interpret this result as normal/abnormal . HGB (test code = 15.7 g/dL 12.2-16.4 718-7) HCT (test code = 49.7 % 38.4-49.3 H 4544-3) MCV (test code = 88.8 fL 81.7-95.6 787-2) MCH (test code = 28.0 pg 26.1-32.7 785-6) MCHC (test code = 31.6 g/dL 31.2-35 786-4) RDW-SD (test code = 41.9 fL 38.5-51.6 78046-5) RDW-CV (test code = 12.9 % 12.1-15.4 788-0) PLT (test code = See_Comment [Automated 777-3) message] The sy stem which generated this result transmitted reference range : 150 - 328 10*3/ ?L. The reference r vishnu was not used to interpret this result as normal/abnormal . MPV (test code = 11.5 fL 9.8-13 22785-2) NRBC/100 WBC (test See_Comment [Automat ed code = 2792688769) message] The system which generated this result transmitted reference range : 0.0 - 10.0 /100 WBCs. The refer ence range was not u sed to interpret th is result as normal/abnormal . NRBC x10^3 (test code <0.01 See_Comment [Auto mated = [id number]) message] The s ystem which generated this result transmitted reference range : 10*3/?L. The reference range was not used to interpret this result as normal/abnormal . GRAN MAT (NEUT) % 56.3 % (test code = 770-8) IMM GRAN % (test code 0.30 % = 4979517956) LYMPH % (test code = 36.5 % 736-9) MONO % (test code = 6.2 % 5905-5) EOS % (test code = 0.5 % 713-8) BASO % (test code = 0.2 % 706-2) GRAN MAT x10^3(ANC) 3.64 10*3/uL 1.99-6.95 (test code = 5852901062) IMM GRAN x10^3 (test <0.03 0-0.06 code = 3984882299) LYMPH x10^3 (test code 2.36 10*3/uL 1.09-3.23 = 731-0) MONO x10^3 (test code 0.40 10*3/uL 0.36-1.02 = 742-7) EOS x10^3 (test code = 0.03 10*3/uL 0.06-0.53 L 711-2) BASO x10^3 (test code <0.03 0.01-0.09 = 704-7) Lab Interpretation Abnormal (test code = 43174-7) [id number] 17:27:00 Test Item Value Reference Range Interpretation Comments PROTIME PATIENT (test See_Comment [Auto mated message] code = 5964-2) The system wh ich generated this result transmitted ref erence range: 12.0 - 1 4.7 Seconds. The re ference range was not u sed to interpret this result as normal/abnor mal. INR (test code = 6301-6) Nor mal INR <1.1; Warfarin Therap eutic range 2.0 to 3. 0 or 2.5 to 3.5, dep ending upon the indica tions. Lab Interpretation (test Normal code = 65553-2) [facility] Test Item Value Reference Range Interpretation Comments APTT Patient (test See_Comment [Automat ed code = 3173-2) message] The system which generated this result transmitted reference range : 23 - 38 Seconds . The reference range was not used to interpr et this result as normal/abnormal . CARINA (test code = CARINA) The [facility] patient population mean normal value for aPTT is 30 seconds. Lab Interpretation Normal (test code = 82890-0) [facility] 1 [id number] 17:10:19CHEST ONE VIEW HISTORY: ?Surgery TECHNIQUE: ?AP view of the chest is obtained. FINDINGS: A calcifiedgranuloma is seen in the left upper lobe. Smalldensities superimposed over the right upper lobe probably representgranulomas. Lungs are otherwise clear. Heart size and mediastinalsilhouette are normal.No pleural effusion or pneumothorax is seen. CONCLUSIONS: No acute cardiopulmonary disease. [facility], Rad iant Results Inft User - 04/02/2019 11:11 AM CSTCHEST ONE VIEWHISTORY: SurgeryTECHNIQUE: AP view of the chest is obtained.FINDINGS: A calcified granuloma is seen in the left upper lobe. Smalldensities superimposed over the right upper lobe probably representgranulomas. Lungs are otherwise clear. Heart size and mediastinalsilhouette are normal. No pleural effusion or pneumothorax is seen.CONCLUSIONS: No acute cardiopulmonary disease.[facility] RIGHT WO [id number] 20:32:51HISTORY: ?Pain in the right shoulder. Patient gave history of falling off abed in January 2019. TECHNIQUE: MR imaging of the RIGHT SHOULDER was done in multipleprojections using 1.5T MR unit and standard protocol. FINDINGS: Rotator cuff tendons are intact. Minimal glenohumeral jointeffusion is present. No fluid is detected in the subdeltoid or subacromialbursa. AC joint showed mild degenerative arthrosis with mild impingement noted onthe musculotendinous portion of the supraspinatus. No definite evidence ofsubcoracoid impingement. Abnormal morphology and signal intensity detected along the anteroinferiorlabrum consistent with a labral tear at approximately 8:00 location withcluster of small 2 to 3 mm size para labral cysts noted extending along thedeep surface of the adjacent subscapularis tendon . Small cystic changes are seen in the head of the humerus underneath theinfraspinatus tendon, of noclinical significance. No abnormality detectedin the spinoglenoid notch region. CONCLUSIONS:1. Focaltear at 8:00 in anteroinferior labrum.2. No abnormalities seen in the rotator cuff tendons. [facility],Radiant Results Inft User - 03/23/2019 2:34 PM CSTHISTORY: Pain in the right shoulder. Patient gave history of falling off abed in January 2019.TECHNIQUE: MR imaging of the RIGHT SHOULDER was done in multipleprojections using 1.5T MR unit and standard protocol.FINDINGS: Rotator cuff tendons are inta ct. Minimal glenohumeral jointeffusion is present. No fluid is detected in the subdeltoid or subacromialbursa.AC joint showed mild degenerative arthrosis with mild impingement noted onthe musculotendinous portion of the supraspinatus. No definite evidence ofsubcoracoid impingement.Abnormal morphology and signal intensity detected along the anteroinferiorlabrum consistent with a labral tear at approximately 8:00 location withcluster of small 2 to 3 mm size para labral cysts noted extending along thedeep surface of the adjacent subscapularis tendon.Small cystic changes are seen in the head of the humerus underneath theinfraspinatus tendon, of no clinical significance. No abnormality detectedin the spinoglenoid notch region.CONCLUSIONS:1. Focal tear at 8:00 in anteroinferior labrum.2. No abnormalities seen in the rotator cuff tendons. [facility]"
[2021-05-08] MEDS ORDERED: LIDOCAINE 4% PATCH ONE (12:48)
[2021-05-08] MEDS ORDERED: CYCLOBENZAPRINE 10 MG TAB ONE (12:48)
[2021-05-08] MEDS ORDERED: dexAMETHasone 10 MG/ML VIAL ONE (12:48)
--- NOTE | 2021-05-08 13:31 | RAD REPORT ---
EXAM DESCRIPTION: RAD - Thoracic Spine Ap/Lat - 05/08/2021 1:22 pm CLINICAL HISTORY: PAIN Radiculopathy COMPARISON: No comparisons FINDINGS: The thoracic spine vertebral body heights and disc spaces are largely maintained. No acute compression fracture. No significant malalignment. IMPRESSION: Negative study.
[2021-05-08] MEDS ORDERED: HYDROCODONE/APAP 10/325 TAB ONE (14:25)
[2021-05-08] MEDS ORDERED: CEFTRIAXONE 1000 MG/VIAL ONE (14:30)
[2021-05-08] MEDS ORDERED: NA CHLORIDE 0.9% 100 ML IV ONE (14:30)
[2021-05-08] MEDS ORDERED: MORPHINE 4 MG/ML SYR ONE (15:38)
--- NOTE | 2021-05-08 16:18 | EDPHYS ---
Physician Documentation [facility] Name: Ranjit Rutledge Age: 30 yrs Sex: Male : 1990 Arrival Date: 05/08/2021 Time: 12:09 Bed 17 Private MD: ED Physician Dao Burleson HPI: 05/08 12:30 This 30 yrs old Male presents to ER via Ambulatory with complaints of Back Pain. pm1 12:30 The patient presents with pain that is acute. The symptoms are located in the thoracic pm1 spine. Onset: The symptoms/episode began/occurred today. The pain does not radiate. Associated signs and symptoms: Pertinent negatives: chest pain, dysuria, fever, nausea, vomiting. The problem was sustained Patient reached out with his hands and felt something pop in his back. Pain with moving both arms. Modifying factors: The patient symptoms are alleviated by remaining still, the patient symptoms are aggravated by movement of arms. Severity of symptoms: in the emergency department the symptoms are actually worse. The patient has not experienced similar symptoms in the past. The patient has not recently seen a physician. Historical: - Allergies: 12:25 NSAIDS; ab2 - PMHx: 12:25 Anxiety; Depression; Irritable bowel syndrome; Kidney stones; ab2 - PSHx: 12:25 lithotripsy and lazer surgeries for kidney stoneX8; ab2 - Immunization history:: Adult Immunizations up to date, Client reports having NOT received the Covid vaccine. - Social history:: Smoking status: Patient denies any tobacco usage or history of. ROS: 12:30 Constitutional: Negative for fever, chills, and weight loss, Cardiovascular: Negative pm1 for chest pain, palpitations, and edema, Respiratory: Negative for shortness of breath, cough, wheezing, and pleuritic chest pain. 12:30 MS/Extremity: Negative for injury and deformity, Skin: Negative for injury, rash, and discoloration, Neuro: Negative for headache, weakness, numbness, tingling, and seizure. 12:30 Back: Positive for pain with movement, of the thoracic area. 12:30 All other systems are negative. Exam: 12:30 Constitutional: This is a well developed, well nourished patient who is awake, alert, pm1 and in no acute distress. Head/Face: Normocephalic, atraumatic. 12:30 Skin: Warm, dry with normal turgor. Normal color with no rashes, no lesions, and no evidence of cellulitis. MS/ Extremity: Pulses equal, no cyanosis. Neurovascular intact. Full, normal range of motion. 12:30 Neck: Exam negative for acute changes, External neck: is normal, C-spine: no acute changes, vertebral tenderness, is not appreciated. 12:30 Back: pain, that is moderate, of the thoracic area, normal spinal alignment noted, muscle spasm, is appreciated in the left scapular area and right scapular area. 12:30 Neuro: Exam negative for acute changes, Orientation: is normal, Mentation: is normal, Motor: is normal, moves all fours, Sensation: no obvious gross deficits. Vital Signs: 12:24 BP 153 / 97; Pulse 93; Resp 18; Temp 97.9(TE); Pulse Ox 98% on R/A; Weight 104.33 kg; ab2 Height 5 ft. 8 in. (172.72 cm); Pain 10/10; 14:00 BP 145 / 90; Pulse 87; Resp 18; Pulse Ox 96% on R/A; Pain 10/10; ag7 15:00 BP 131 / 104 RA Sitting (man/lg); Pulse 92 MON; Pulse Ox 95% on R/A; Pain 8/10; ag7 15:15 BP 129 / 95 RA Sitting (man/lg); Pulse 94; Resp 18 S; Pulse Ox 96% on R/A; Pain 8/10; ag7 15:25 Pain 8/10; ag7 16:15 BP 135 / 99 RA Sitting (man/lg); Pulse 90 MON; Pulse Ox 94% on R/A; Pain 0/10; ag7 12:24 Body Mass Index 34.97 (104.33 kg, 172.72 cm) ab2 MDM: 12:29 Patient medically screened. pm1 12:30 Data reviewed: vital signs. Data interpreted: Pulse oximetry: on room air is 96 %. pm1 Interpretation: normal. 14:09 Counseling: I had a detailed discussion with the patient and/or guardian regarding: the pm1 historical points, exam findings, and any diagnostic results supporting the discharge/admit diagnosis, radiology results, the need for outpatient follow up, to return to the emergency department if symptoms worsen or persist or if there are any questions or concerns that arise at home. 16:20 ED course: PMPware reviewed. pm1 05/08 12:32 Order name: Spine Thoracic Ap/Lat XRAY; Complete Time: 14:09 pm1 Administered Medications: 13:10 Drug: Flexeril (cyclobenzaprine) 10 mg Route: PO; jd3 14:10 Follow up: Response: No adverse reaction jd3 13:10 Drug: Lidoderm Patch 5 % (700 mg/patch) 1 patches Route: Topical; Site: affected area; jd3 14:10 Follow up: Response: No adverse reaction jd3 13:10 Drug: Decadron (dexamethasone) 10 mg Route: IM; Site: right deltoid; jd3 14:10 Follow up: Response: No adverse reaction jd3 14:25 Drug: Citra (HYDROcodone-acetaminophen) 10 mg-325 mg 1 tabs Route: PO; ag7 15:25 Follow up: Pain 8/10 Adult; Response: No adverse reaction ag7 15:40 Drug: morphine 4 mg Route: IM; Site: right deltoid; jd3 16:33 Follow up: Response: No adverse reaction; RASS: Alert and Calm (0) jd3 Disposition: 21:37 Co-signature as Attending Physician, Dao Burleson DO I agree with the assessment and ms3 plan of care. Disposition Summary: 05/08/21 16:17 Discharge Ordered Location: Home pm1 Problem: new pm1 Symptoms: have improved pm1 Condition: Stable pm1 Diagnosis - Injury of muscle and tendon at thorax level pm1 - Muscle spasm of back pm1 Followup: pm1 - With: Emergency Department - When: As needed - Reason: Worsening of condition Followup: pm1 - With: Private Physician - When: 2 - 3 days - Reason: Recheck today's complaints, Continuance of care, Re-evaluation by your physician Discharge Instructions: - Discharge Summary Sheet pm1 - Acute Back Pain, Adult pm1 - Muscle Cramps and Spasms pm1 Forms: - Medication Reconciliation Form pm1 - Thank You Letter pm1 - Antibiotic Education pm1 - Prescription Opioid Use pm1 Prescriptions: - Cyclobenzaprine 10 mg Oral Tablet - take 1 tablet by ORAL route every 8 hours As needed; 30 tablet; Refills: 0, pm1 Product Selection Permitted - Tylenol-Codeine #3 300 mg-30 mg Oral - take 2 tablet by ORAL route every 6 hours As needed; 20 tablet; Refills: 0, pm1 Product Selection Permitted Signatures: Dispatcher [employer] Lucian Adkins, BRANDI SUPERVISOR [employer]WORK pm1 Idris Finley, RN RN jd3 Dao Burleson, DO CASTELLANO ms3 Yannick Rivas ab2 Nuha Hernandez, RN RN ag7
--- NOTE | 2021-05-08 16:18 | ER ---
Nurse's Notes [facility] Name: Ranjit Rutledge Age: 30 yrs Sex: Male : 1990 Arrival Date: 05/08/2021 Time: 12:09 Bed 17 Private MD: Diagnosis: Injury of muscle and tendon at thorax level;Muscle spasm of back Presentation: 05/08 12:24 Chief complaint:. Chief complaint: Patient states: "I reached out for something and I ab2 felt a snap in the left side of my back.". Coronavirus screen: Vaccine status: Patient reports being unvaccinated. Client denies travel out of the [place] in the last 14 days. At this time, the client does not indicate any symptoms associated with coronavirus-19. Ebola Screen: Patient negative for fever greater than or equal to 101.5 degrees Fahrenheit, and additional compatible Ebola Virus Disease symptoms Patient denies exposure to infectious person. Patient denies travel to an Ebola-affected area in the 21 days before illness onset. No symptoms or risks identified at this time. Initial Sepsis Screen: Does the patient meet any 2 criteria? No. Patient's initial sepsis screen is negative. Does the patient have a suspected source of infection? No. Patient's initial sepsis screen is negative. Risk Assessment: Do you want to hurt yourself or someone else? Patient reports no desire to harm self or others. Onset of symptoms is unknown. 12:24 Method Of Arrival: Ambulatory ab2 12:24 Acuity: CELENA 4 ab2 Triage Assessment: 12:26 General: Appears in no apparent distress. uncomfortable, Behavior is calm, cooperative, ab2 appropriate for age. Pain: Complains of pain in left scapular area and left subscapular area Pain does not radiate. Pain currently is 10 out of 10 on a pain scale. Respiratory: Airway is patent Respiratory effort is even, unlabored, Respiratory pattern is regular, symmetrical. Musculoskeletal: Range of motion: intact in all extremities, Reports pain in left scapular area and left subscapular area. Historical: - Allergies: 12:25 NSAIDS; ab2 - PMHx: 12:25 Anxiety; Depression; Irritable bowel syndrome; Kidney stones; ab2 - PSHx: 12:25 lithotripsy and lazer surgeries for kidney stoneX8; ab2 - Immunization history:: Adult Immunizations up to date, Client reports having NOT received the Covid vaccine. - Social history:: Smoking status: Patient denies any tobacco usage or history of. Screenin:37 Abuse screen: Denies threats or abuse. Nutritional screening: No deficits noted. ag7 Tuberculosis screening: No symptoms or risk factors identified. Fall Risk No fall in past 12 months (0 pts). Secondary diagnosis (15 points) impaired mobility, IV access (20 points). Ambulatory Aid- None/Bed Rest/Nurse Assist (0 pts). Gait- Mental Status- Oriented to own ability (0 pts). Total Raymundo Fall Scale indicates Low Risk Score (25-44 pts). Fall prevention measures have been instituted. Placed close to Nursing Station Frequent Obs/Assesments occuring As available Patient and Family Educated on Fall Prevention Program and strategies. Assessment: 12:54 General: Appears in no apparent distress. uncomfortable, Behavior is calm, cooperative, jd3 appropriate for age. Pain: Complains of pain in back and left scapular area Quality of pain is described as sharp, stabbing. Neuro: Level of Consciousness is awake, alert, obeys commands, Oriented to person, place, time, situation. Cardiovascular: Denies chest pain, Capillary refill < 3 seconds Patient's skin is warm and dry. Respiratory: Airway is patent Respiratory effort is even, unlabored, Respiratory pattern is regular, symmetrical. GI: No signs and/or symptoms were reported involving the gastrointestinal system. : No signs and/or symptoms were reported regarding the genitourinary system. EENT: No signs and/or symptoms were reported regarding the EENT system. Derm: Skin is intact, Skin is dry, Skin is normal, Skin temperature is warm. Musculoskeletal: Circulation, motion, and sensation intact. Range of motion: limited in left shoulder. 13:00 Reassessment: Patient and/or family updated on plan of care and expected duration. Pain ag7 level reassessed. Patient is alert, oriented x 3, equal unlabored respirations, skin warm/dry/pink. Pain: Complains of pain in back, subscapular area bilateral Pain does not radiate. Pain currently is 10 out of 10 on a pain scale. Quality of pain is described as aching, stabbing, Pain began suddenly, Is continuous, Alleviated by nothing. Aggravated by repositioning, Noted to be spasms. 14:00 Reassessment: No changes from previously documented assessment. Patient and/or family ag7 updated on plan of care and expected duration. Pain level reassessed. Patient is alert, oriented x 3, equal unlabored respirations, skin warm/dry/pink. 15:00 Reassessment: No changes from previously documented assessment. Patient and/or family ag7 updated on plan of care and expected duration. Pain level reassessed. Patient is alert, oriented x 3, equal unlabored respirations, skin warm/dry/pink. 16:00 Reassessment: Patient and/or family updated on plan of care and expected duration. Pain ag7 level reassessed. Patient is alert, oriented x 3, equal unlabored respirations, skin warm/dry/pink. Patient states symptoms have improved. Vital Signs: 12:24 BP 153 / 97; Pulse 93; Resp 18; Temp 97.9(TE); Pulse Ox 98% on R/A; Weight 104.33 kg; ab2 Height 5 ft. 8 in. (172.72 cm); Pain 10/10; 14:00 BP 145 / 90; Pulse 87; Resp 18; Pulse Ox 96% on R/A; Pain 10/10; ag7 15:00 BP 131 / 104 RA Sitting (man/lg); Pulse 92 MON; Pulse Ox 95% on R/A; Pain 8/10; ag7 15:15 BP 129 / 95 RA Sitting (man/lg); Pulse 94; Resp 18 S; Pulse Ox 96% on R/A; Pain 8/10; ag7 15:25 Pain 8/10; ag7 16:15 BP 135 / 99 RA Sitting (man/lg); Pulse 90 MON; Pulse Ox 94% on R/A; Pain 0/10; ag7 12:24 Body Mass Index 34.97 (104.33 kg, 172.72 cm) ab2 ED Course: 12:09 Patient arrived in ED. as 12:11 Dao Burleson DO is Attending Physician. ms3 12:25 Triage completed. ab2 12:27 Arm band placed on left wrist. ab2 12:29 Lucian Moreno NP is PHCP. pm1 12:42 Idris Finley, MICHAEL is Primary Nurse. jd3 13:21 Spine Thoracic Ap/Lat XRAY In Process Unspecified. EDMS 14:11 Nuha Hernandez, RN is Primary Nurse. ag7 15:38 Patient has correct armband on for positive identification. Bed in low position. Call ag7 light in reach. Pulse ox on. NIBP on. 16:43 No provider procedures requiring assistance completed. ag7 16:44 Patient did not have IV access during this emergency room visit. ag7 Administered Medications: 13:10 Drug: Flexeril (cyclobenzaprine) 10 mg Route: PO; jd3 14:10 Follow up: Response: No adverse reaction jd3 13:10 Drug: Lidoderm Patch 5 % (700 mg/patch) 1 patches Route: Topical; Site: affected area; jd3 14:10 Follow up: Response: No adverse reaction jd3 13:10 Drug: Decadron (dexamethasone) 10 mg Route: IM; Site: right deltoid; jd3 14:10 Follow up: Response: No adverse reaction jd3 14:25 Drug: Sedan (HYDROcodone-acetaminophen) 10 mg-325 mg 1 tabs Route: PO; ag7 15:25 Follow up: Pain 8/10 Adult; Response: No adverse reaction ag7 15:40 Drug: morphine 4 mg Route: IM; Site: right deltoid; jd3 16:33 Follow up: Response: No adverse reaction; RASS: Alert and Calm (0) jd3 Outcome: 16:17 Discharge ordered by MD. pm1 16:43 Discharged to home via wheelchair. ag7 16:43 Condition: stable 16:43 Discharge instructions given to patient, Instructed on discharge instructions, follow up and referral plans. medication usage, Demonstrated understanding of instructions, follow-up care, medications, Prescriptions given X 2. 16:46 Patient left the ED. ag7 Signatures: Dispatcher [employer] EDMS Ashlee Ann Patrick, BRANDI PRESIDENT & FOUNDER pm1 Idris Finley RN RN jd3 Dao Burleson DO DO ms3 Yannick Rivas ab2 Nuha Hernandez, RN RN ag7 Corrections: (The following items were deleted from the chart) 15:46 12:54 Pain: Complains of pain in back and left scapular area Quality of pain is jd3 described as sharp, tender, jd3 15:46 12:54 Musculoskeletal: Circulation, motion, and sensation intact. Range of motion: jd3 intact in all extremities, jd3 15:46 13:00 Pain: Complains of pain in back, subscapular area bilateral Pain does not ag7 radiate. Pain currently is 10 out of 10 on a pain scale. Quality of pain is described as aching, stabbing, Pain began suddenly, Is continuous, Alleviated by nothing. Aggravated by repositioning, ag7
[2021-05-08 17:26] VITALS: TEMP 97.9
[2021-05-08 17:32] VITALS: BP 135/99; O2SAT 94
== END 2021-05-08 16:46 | disposition home or self-care (01) ==
LOC: ER 12:07
DX: S29.009A Unspecified injury of muscle and tendon of unspecified wall of thorax, initial encounter (principal); M62.830 Muscle spasm of back; Z88.6 Allergy status to analgesic agent
CPT/HCPCS: 72070; 96372; 99284; J1100

== ENCOUNTER 2022-12-08 05:47 | Emergency (ER) | payer OTHER ==
--- OUTSIDE RECORDS SUMMARY | 2022-12-08 05:50 | XMS REPORT | Continuity of Care Document ---
:1990 Author Organization [facility] t Address [address] [facility] [address] [place] [address] Care Team Providers Name Role Phone RAJINDER ANSARI Primary Care Physician Unavailable BURAK REYES Attending Clinician Unavailable EbBurak Chacko Attending Clinician Unknown, Attending Attending Clinician Unavailable Doctor Unassigned, [place] Attending Clinician Unavailable CARLOS VEGA Attending Clinician Unavailable Carlos Masterson Attending Clinician Myra Vanegas MD Attending Clinician Pob, [facility] Main Attending Clinician Unavailable MYRA VANEGAS Attending Clinician Unavailable JUANCHO ROBERTSON Attending Clinician Unavailable Myra Vanegas MD Admitting Clinician MYRA VANEGAS Admitting Clinician Unavailable JUANCHO ROBERTSON Admitting Clinician Unavailable Payers Payer Name Policy Type Policy Number Effective Date Expiration Date Lynn marcus [facility] [id number] 2022 00:00:00 [facility] [id number] 2019 00:00:00 Problems Condition Condition Condition Status Onset Resolution Last Treating Co mments Source Name Details Category Date Date Treatment Clinician Date Obesity Obesity Disease Active Univers (BMI (BMI 2-10 ity of 30-39.9) 30-39.9) 00:00: [address] Internal Internal Disease Active Overview: Un ariane derangemen derangemen 1-30 Formattin ity of t of right t of right 00:00: g of this [place] shoulder shoulder 00 note Medica l might be Branch different from the original. Added automatic ally from request for surgery [id number] Internal Internal Disease Active Overview: Un ariane dowell 1-30 Added it y of t of right t of right 00:00: automatic [place] shoulder shoulder 00 ally from Med ical request Branch for surgery [id number] No known No known Disease Unive rs active active ity of problems problems [facility] [place] [facility] Allergies, Adverse Reactions, Alerts Allergy Allergy Status Severity Reaction(s) Onset Inactive Treating Comm ents Source Name Type Date Date Clinician Nsaids Propensi Active Other - See States he Univers (Non-[place] ty to comments 1-15 has a ity of roidal adverse 00:00: thin [place] Anti-Inf reaction 00 stomach Medic al lammator s esophagus Branc h y Drug) lining. NSAIDS Drug Active Other-Cmnt Univer s (NON-MICHA Class 1-15 ity of ROIDAL 00:00: [place] ANTI-INF 00 Medical LAMMATOR Branch Y DRUG) Nsaids Propensi Active Other - See States he Univers (Non-[place] ty to comments 1-15 has a ity of roidal adverse 00:00: thin [place] Anti-Inf reaction 00 stomach Medic al lammator s esophagus Branc h y Drug) lining. Social History Social Habit Start Date Stop Date Quantity Comments Source Gender identity Universit y [facility] History of tobacco Cigarette Smoker University of use [facility] [place] [facility] History of Social 2019-09-29 2019-09-29 Univers ity of function 00:00:00 00:00:00 [facility] [place] [facility] Alcohol intake 2019-04-19 2019-04-19 Current University of 00:00:00 00:00:00 non-drinker of [facility] alcohol Branch (finding) Tobacco use and 2015-07-12 2015-07-12 Smokeless Universit y of exposure 00:00:00 00:00:00 tobacco non-user [facility] Sex Ass[birth year] Universit y of 00:00:00 00:00:00 [facility] [place] [facility] Smoking Status Start Date Stop Date Source Never smoked tobacco [facility] Medications Ordered Filled Start Stop Current Ordering Indication Dosage Frequency Signature Comments Components Source Medication Medication Date Date Medication? Clinician (SIG) Name Name methylPREDN 0 Yes [id number] Take by [facility] ISolone 9-02 mouth ity of (MEDROL, 00:00: SEE-INSTRU Virgil as CHIDI,) 4 mg 00 CTIONS. Medica l tablets follow Otho package directions EPINEPHrine 2020-0 Yes PRN, Univer s (PF) 2-10 Starting ity of 1:1,000 (1 17:03: Mon [place] mg/mL) 00 04/05/19 at Medical (ADRENALIN 1103, Branch (PF)) Until injection Discontinu ed, Routine, Intra-op ondansetron 2020-0 Yes 4mg 4 mg, Slow Univers (ZOFRAN 2-10 IV Push, ity of (PF)) 17:01: PRN, 1 [place] injection 4 26 dose, Medical mg Starting Branch 04/05/19 at 1101, Until Discontinu ed, Routine, Nausea and Vomiting (N/V), PACU FENTanyl PF 2019-0 Yes 50ug 50 mcg, Uni vers (SUBLIMAZE 2-10 Slow IV ity of (PF)) 17:01: Push, [place] injection 25 Q5MIN PRN, Medi roverto 50 mcg 2 doses, Branch Starting 04/05/19 at 1101, Until Discontinu ed, Routine, Pain (scale 4-6), PACU HYDROcodone 2020-0 Yes 1{tbl} 1 tablet, Univers -acetaminop 2-10 Oral, ity of hen (NORCO) 15:50: Q6HPRN, Virgil as 10-325 mg 58 Starting Medica l tablet 1 Mon Branch tablet 04/05/19 at 0950, Until Discontinu ed, Routine, Pain (scale 7-10) HYDROcodone 2020-0 Yes 1{tbl} 1 tablet, Univers -acetaminop 2-10 Oral, ity of hen (NORCO 15:50: Q4HPRN, [place] 5) 5-325 mg 48 Starting Medi roverto tablet 1 Mon Branch tablet 04/05/19 at 0950, Until Discontinu ed, Routine, Pain (scale 4-6) lactated 2020-0 2020- No 1000mL at 20 Unive rs ringers IV 2-10 02-10 mL/hr, ity of infusion 13:00: 13:14 1,000 mL, Virgil as 1,000 mL 00 :00 IV Medical Infusion, Branch ONCE, 1 dose, 04/05/19 at 0700, Routine, DSU Pre-op acetaminoph 2019-2019- No [id number] 1{tbl} Take 1 Univers en-codeine 2-10 -18 tablet by ity of 300-30 mg 00:00: 05:59 mouth [place] tablet 00 :00 every 6 Medical (six) Branch hours as needed for Pain (scale 4-6) or Pain (scale 7-10) for up to 7 days. acetaminoph 2019- 2020- No [id number] 1{tbl} Take 1 Univers en-codeine 2-10 -18 tablet by ity of 300-30 mg 00:00: 05:59 mouth [place] tablet 00 :00 every 6 Medical (six) Branch hours as needed for Pain (scale 4-6) or Pain (scale 7-10) for up to 7 days. acetaminoph 2019-2019- No [id number] 1{tbl} Take 1 Univers en-codeine 2-10 -18 tablet by ity of 300-30 mg 00:00: 05:59 mouth [place] tablet 00 :00 every 6 Medical (six) Branch hours as needed for Pain (scale 4-6) or Pain (scale 7-10) for up to 7 days. ceFAZolin 2019- No 2g Univers in dextrose 03-29 ity of (iso-os) 06:00: 17:59 [place] (ANCEF) 2 00 :00 Medical gram/100 mL Branch Piggyback 2 g oxyCODONE-a 2019- 2020- No 2{tbl} Uni vers cetaminophe 03-29 ity of n 06:00: 17:59 [place] (PERCOCET) 00 :00 Medical 5-325 mg Branch per tablet 2 tablet diclofenac 2020-0 Yes 75mg Take 1 Unive rs 75 mg EC 1-14 tablet by ity of tablet 00:00: mouth 2 [place] (two) Medical times Branch daily with meals. diclofenac 2020-0 Yes 75mg Take 1 Unive rs 75 mg EC 1-14 tablet by ity of tablet 00:00: mouth 2 [place] (two) Medical times Branch daily with meals. diclofenac 2020-0 Yes 75mg Take 1 Unive rs 75 mg EC 1-14 tablet by ity of tablet 00:00: mouth 2 00 (two) Medical times Branch daily with meals. diclofenac 2020-0 Yes 75mg Take 1 Unive rs 75 mg EC 1-14 tablet by ity of tablet 00:00: mouth 2 00 (two) Medical times Branch daily with meals. diclofenac 2020-0 Yes 75mg Take 1 Unive rs 75 mg EC 1-14 tablet by ity of tablet 00:00: mouth 2 00 (two) Medical times Branch daily with meals. diclofenac 2020-0 Yes 75mg Take 1 Unive rs 75 mg EC 1-14 tablet by ity of tablet 00:00: mouth 2 00 (two) Medical times Branch daily with meals. diclofenac 2020-0 Yes 75mg Take 1 Unive rs 75 mg EC 1-14 tablet by ity of tablet 00:00: mouth 2 00 (two) Medical times Branch daily with meals. diclofenac 2020-0 Yes 75mg Take 1 Unive rs 75 mg EC 1-14 tablet by ity of tablet 00:00: mouth 2 (two) Medical times Branch daily with meals. diclofenac 2020-0 Yes 75mg Take 1 Unive rs 75 mg EC 1-14 tablet by ity of tablet 00:00: mouth 2 (two) Medical times Branch daily with meals. diclofenac 2020-0 2020- No 75mg Take 1 Univ ers 75 mg EC 1-14 03-26 tablet by ity o f tablet 00:00: 00:00 mouth 2 [place] 00 :00 (two) Medical times Branch daily with meals. traMADol 50 2018-02 Yes [id number] 50mg Take 1 Univers mg tablet 2-21 tablet by ity o f 00:00: mouth [place] 00 every 6 Medical (six) Branch hours as needed for Pain (scale 7-10). cyclobenzap 2018-02 Yes [id number] 10mg Take 1 Univers rine 10 mg 2-21 tablet by ity of tablet 00:00: mouth 3 00 (three) Medical times Branch daily as needed for Muscle Spasms. traMADol 50 2018-02 Yes [id number] 50mg Take 1 Univers mg tablet 2-21 tablet by ity o f 00:00: mouth [place] 00 every 6 Medical (six) Branch hours as needed for Pain (scale 7-10). cyclobenzap 2018-02 Yes [id number] 10mg Take 1 Univers rine 10 mg 2-21 tablet by ity of tablet 00:00: mouth 3 [place] 00 (three) Medical times Branch daily as needed for Muscle Spasms. traMADol 50 2018-02 Yes [id number] 50mg Take 1 Univers mg tablet 2-21 tablet by ity o f 00:00: mouth [place] 00 every 6 Medical (six) Branch hours as needed for Pain (scale 7-10). cyclobenzap 2018-02 Yes [id number] 10mg Take 1 Univers rine 10 mg 2-21 tablet by ity of tablet 00:00: mouth 3 [place] 00 (three) Medical times Branch daily as needed for Muscle Spasms. traMADol 50 2018-02 Yes [id number] 50mg Take 1 Univers mg tablet 2-21 tablet by ity o f 00:00: mouth [place] 00 every 6 Medical (six) Branch hours as needed for Pain (scale 7-10). cyclobenzap 2018-02 Yes [id number] 10mg Take 1 Univers rine 10 mg 2-21 tablet by ity of tablet 00:00: mouth 3 [place] 00 (three) Medical times Branch daily as needed for Muscle Spasms. traMADol 50 2018-02 Yes [id number] 50mg Take 1 Univers mg tablet 2-21 tablet by ity o f 00:00: mouth [place] 00 every 6 Medical (six) Branch hours as needed for Pain (scale 7-10). cyclobenzap 2018-02 Yes [id number] 10mg Take 1 Univers rine 10 mg 2-21 tablet by ity of tablet 00:00: mouth 3 [place] 00 (three) Medical times Branch daily as needed for Muscle Spasms. traMADol 50 2018-02 Yes [id number] 50mg Take 1 Univers mg tablet 2-21 tablet by ity o f 00:00: mouth [place] 00 every 6 Medical (six) Branch hours as needed for Pain (scale 7-10). cyclobenzap 2018-02 Yes [id number] 10mg Take 1 Univers rine 10 mg 2-21 tablet by ity of tablet 00:00: mouth 3 [place] 00 (three) Medical times Branch daily as needed for Muscle Spasms. traMADol 50 2018- Yes [id number] 50mg Take 1 Univers mg tablet 2-21 tablet by ity o f 00:00: mouth [place] 00 every 6 Medical (six) Branch hours as needed for Pain (scale 7-10). cyclobenzap 2018-02 Yes [id number] 10mg Take 1 Univers rine 10 mg 2-21 tablet by ity of tablet 00:00: mouth 3 [place] 00 (three) Medical times Branch daily as needed for Muscle Spasms. traMADol 50 2018-02 Yes [id number] 50mg Take 1 Univers mg tablet 2-21 tablet by ity o f 00:00: mouth [place] 00 every 6 Medical (six) Branch hours as needed for Pain (scale 7-10). cyclobenzap 2018-02 Yes [id number] 10mg Take 1 Univers rine 10 mg 2-21 tablet by ity of tablet 00:00: mouth 3 [place] 00 (three) Medical times Branch daily as needed for Muscle Spasms. traMADol 50 2018-02 Yes [id number] 50mg Take 1 Univers mg tablet 2-21 tablet by ity o f 00:00: mouth [place] 00 every 6 Medical (six) Branch hours as needed for Pain (scale 7-10). cyclobenzap 2018-02 Yes [id number] 10mg Take 1 Univers rine 10 mg 2-21 tablet by ity of tablet 00:00: mouth 3 [place] 00 (three) Medical times Branch daily as needed for Muscle Spasms. traMADol 50 2018-02 Yes [id number] 50mg Take 1 Univers mg tablet 2-21 tablet by ity o f 00:00: mouth [place] 00 every 6 Medical (six) Branch hours as needed for Pain (scale 7-10). cyclobenzap 2018-02 Yes [id number] 10mg Take 1 Univers rine 10 mg 2-21 tablet by ity of tablet 00:00: mouth 3 [place] 00 (three) Medical times Branch daily as needed for Muscle Spasms. traMADol 50 2018-02 2020- No [id number] 50mg Take 1 Univers mg tablet 2-21 -31 tablet by ity of 00:00: 00:00 mouth [place] 00 :00 every 6 Medical (six) Branch hours as needed for Pain (scale 7-10). cyclobenzap 2018-02 2020- No [id number] 10mg Take 1 Univers rine 10 mg 2-21 -31 tablet by ity of tablet 00:00: 00:00 mouth 3 [place] 00 :00 (three) Medical times Branch daily as needed for Muscle Spasms. No known No Univers medications ity of [place] [facility] No known No Univers medications ity of [facility] Branch No known No Univers medications ity of [facility] Branch No known No Univers medications ity of [facility] Branch No known No Univers medications ity of [facility] Branch No known No Univers medications ity of [facility] Branch No known No Univers medications ity of [facility] Branch Vital Signs Vital Name Observation Time Observation Value Comments Source Systolic blood 2022-10-26 15:22:00 141 mm[Hg] Univer sity of pressure [facility] Branch Diastolic blood 2022-10-26 15:22:00 101 mm[Hg] Unive rsity of pressure [facility] [place] [facility] Heart rate 2022-10-26 15:22:00 108 /min Universi ty of [facility] [place] [facility] Body temperature 2022-10-26 15:18:00 36.78 Katlyn Univ ersity of [facility] [place] [facility] Respiratory rate 2022-10-26 15:18:00 22 /min Univ ersity of [facility] [place] [facility] Body height 2022-10-26 15:18:00 172.7 cm Universi ty of [facility] [place] [facility] Body weight 2022-10-26 15:18:00 104.191 kg Universi ty of [place] [facility] Branch BMI 2022-10-26 15:18:00 34.93 kg/m2 Universi ty of [facility] [place] [facility] Oxygen saturation in 2022-10-26 15:18:00 97 /min [facility] Arterial blood by [facility] Pulse oximetry Branch Systolic blood 2019-04-19 21:43:00 114 mm[Hg] Univer sity of pressure [facility] [place] [facility] Diastolic blood 2019-04-19 21:43:00 83 mm[Hg] Unive rsity of pressure [facility] [place] [facility] Heart rate 2019-04-19 21:43:00 87 /min Universi ty of [place] [facility] Body height 2019-04-19 21:43:00 172.7 cm Universi ty of [facility] Branch Body weight 2019-04-19 21:43:00 104.327 kg Universi ty of [place] [facility] BMI 2019-04-19 21:43:00 34.97 kg/m2 Universi ty of [facility] Branch Systolic blood 2019-04-19 21:43:00 114 mm[Hg] Univer sity of pressure [facility] [place] [facility] Diastolic blood 2019-04-19 21:43:00 83 mm[Hg] Unive rsity of pressure [facility] [place] [facility] Heart rate 2019-04-19 21:43:00 87 /min Universi ty of [place] [facility] Otho Body height 2019-04-19 21:43:00 172.7 cm Universi ty of [place] [facility] Body weight 2019-04-19 21:43:00 104.327 kg Universi ty of [place] [facility] BMI 2019-04-19 21:43:00 34.97 kg/m2 Universi ty of [facility] Branch Systolic blood 2019-04-05 17:27:00 132 mm[Hg] Univer sity of pressure [facility] [place] [facility] Diastolic blood 2019-04-05 17:27:00 83 mm[Hg] Unive rsity of pressure [facility] [place] [facility] Heart rate 2019-04-05 17:27:00 85 /min Universi ty of [facility] [place] [facility] Body temperature 2019-04-05 17:27:00 20.06 Katlyn [facility] Respiratory rate 2019-04-05 17:27:00 18 /min [facility] Oxygen saturation in 2019-04-05 17:27:00 97 /min [facility] Arterial blood by [facility] Pulse oximetry Branch Body height 2019-04-01 16:00:00 172.7 cm Universi ty of [facility] [place] [facility] Body weight 2019-04-01 16:00:00 104.327 kg Universi ty of [facility] Branch BMI 2019-04-01 16:00:00 34.97 kg/m2 Universi ty of [facility] [place] [facility] Body height 2019-03-24 19:13:00 172.7 cm Universi ty of [facility] [place] [facility] Body weight 2019-03-24 19:13:00 102.059 kg Universi ty of [place] [facility] BMI 2019-03-24 19:13:00 34.21 kg/m2 Universi ty of [facility] Branch Body height 2019-03-23 19:47:00 172.7 cm Universi ty of [facility] [place] [facility] Body weight 2019-03-23 19:47:00 102.059 kg Universi ty of [facility] Branch BMI 2019-03-23 19:47:00 34.21 kg/m2 Universi ty of [facility] Branch Procedures Procedure Date / Time Performing Clinician Source Performed POCT SARS-COV-2 ANTIGEN 2022-10-26 15:42:00 Burak Reyes [facility] (BINAX NOW) [facility] POCT MOLECULAR FLU 2022-10-26 15:35:00 Unknown, Attending [facility] PO[facility] MOLECULAR STREP 2022-10-26 15:16:00 Unknown, Attending [facility] ASSIGNMENT OF BENEFITS 2022-10-26 14:53:19 Doctor Unassigned, Un [facility] [place] [facility] AUTHORIZATION FOR RELEASE 2019-04-05 06:01:00 Doctor Medardo, [facility] [place] Medical Otho URINALYSIS 2019-04-02 17:30:00 Myra Vanegas [facility] COMP. METABOLIC PANEL 2019-04-02 17:15:00 Myra Vanegas [facility] ([id number]) Medical Otho CBC WITH DIFFERENTIAL 2019-04-02 17:15:00 Myra Vanegas [facility] PROTHROMBIN TIME / INR 2019-04-02 17:15:[address] [facility] ACTIVATED PARTIAL 2019-04-02 17:15:00 Myra Vanegas [facility] THRMPLAS [facility] Branch XR CHEST 1 VW 2019-04-02 17:08:00 Myra Vanegas [facility] ASSIGNMENT OF BENEFITS 2019-04-02 16:26:21 Doctor Unacorey, Un [facility] [place] [facility] INSURANCE CORRESPONDENCE 2019-03-26 06:01:00 Doctor Medardo, [facility] [place] Medical Otho DISCLOSURE AND CONSENT, 2019-03-24 06:01:00 Doctor [facility]ardo, [facility] [place] [facility] PROCEDURES MR SHOULDER RIGHT WO 2019-03-23 20:24:21 Myra Vanegas [facility] CONTRAST Medical Otho CONSENT/REFUSAL FOR 2019-03-23 18:50:01 Doctor Medardo, [facility] DIAGNOSIS AND TREATMENT [place] [facility] ASSIGNMENT OF BENEFITS 2019-03-23 18:49:45 Doctor Unassanne, Un [facility] [place] [facility] INSURANCE CORRESPONDENCE 2019-02-23 06:01:00 Doctor Medardo, [facility] [place] [facility] Encounters Start End Encounter Admission Attending Care Care Encounter Source Date/Time Date/Time Type Type Clinicians Facility Department ID 2022-10-26 2022-10-26 Outpatient R [facility]IE [facility] [id number] Univers 10:00:00 10:56:53 RANIA ity [facility] 2022-10-26 2022-10-26 Urgent Burak Reyes [facility] 1.2.840.114 [id number] Univers 10:00:00 10:56:53 Care Unknown, Attending HEALTH [id number] ity of [place] 4.2.7.2.686 Virgil as ALDEN?BLEA [id number] Ia dical [facility] 370 Otho MEDICAL OFFICE BUILDING 2022-10-26 2022-10-26 Orders Doctor LEDY 1.2.840.114 [id number] Univers 00:00:00 00:00:00 Only Unassigned, JAMIE 350.1.13.10 ity of [place] [facility] 4.2.7.2.686 Virgil as [id number] [address] 2019-04-19 2019-04-19 [facility] [id number] Univers 16:15:00 16:15:00 CARLOS ity [facility] 2019-04-19 2019-04-19 [facility] 1.2.840.114 [id number] Univers 15:34:02 16:12:48 [facility] [id number] it y of Surgical 4.2.7.2.686 Virgil as Specialti [id number] [facility] [address] [facility] 2019-04-19 2019-04-19 [facility] 1.2.840.114 [id number] 15:34:02 16:12:48 Visit [facility] [id number] Surgical 4.2.7.2.[address] Specialti [id number] [address] 2019-04-05 2019-04-05 [facility] 1.2.840.114 [id number] Univers 06:57:00 12:04:00 Encounter Myra Echeverria 350.1.13.10 ity of [place] 4[place]2.7.2.686 [place] [id number] [address] 2019-04-05 2019-04-05 Orders Doctor LEDY 1.2.840.114 [id number] Univers 00:00:00 00:00:00 Only Unassigned, JAMIE 350.1.13.10 ity of [place] [facility] 4.2.7.2.686 Virgil as [id number] [facility] 009 Otho 2019-04-02 2019-04-02 Bath Solution Maker Ellen, Daniel Lab Main [facility] 1.2.8 40.114 [id number] Univers 10:28:59 10:43:59 Visit Myra Vanegas 350.1.13.10 ity of [place] 4[place]2.7.2.686 [place] [facility] [id number] Ia dical nal [address] [facility] 2019-04-02 2019-04-02 Outpatient [facility] [id number] Univers 10:32:04 08:59:00 MYRA ity of [facility] [place] [facility] 2019-04-02 2019-04-02 [facility] 1.2.840.114 [id number] Univers 08:00:00 08:59:00 Encounter Myra Echeverria 350.1.13.10 ity of [place] 4.2.7.2.686 [place] [id number] [facility] 807 Otho 2019-04-02 2019-04-02 Orders Doctor LEDY 1.2.840.114 [id number] Univers 00:00:00 00:00:00 Only Unassigned, JAMIE 350.1.13.10 ity of [place] [facility] 4.2.7.2.686 Virgil as [id number] [facility] 009 Otho 2019-03-29 2019-03-29 [facility] 1.2.840.114 [id number] Univers 00:00:00 00:00:00 Surgery Myra Silverman [facility] 350.1.13.10 it y of Surgical 4.2.7.2.686 [place] as Specialti [id number] Ia dical es [address] [facility] 2019-03-26 2019-03-26 Orders Doctor LEDY 1.2.840.114 [id number] Univers 00:00:00 00:00:00 Only Unassigned, JAMIE 350.1.13.10 ity of [place] [facility] 4.2.7.2.686 Virgil as [id number] [address] 2019-03-24 2019-03-24 Office Ron [facility] [id number] Univers 12:58:00 13:50:22 Visit Myra Lance 350.1.13.10 it y of Surgical 4.2.7.2.686 Vir[place] as Specialti [id number] Ia dical es [address] [facility] 2019-03-24 2019-03-24 Telephone Vega [facility] [id number] Univers 00:00:00 00:00:00 [facility] [id number] it y of Surgical 4.2.7.2.686 [place] as Specialti [id number] Ia dical es [address] [facility] 2019-03-24 2019-03-24 Orders Doctor LEDY 1.2.840.114 [id number] Univers 00:00:00 00:00:00 Only Unassigned, JAMIE 350.1.13.10 ity of [place] [facility] 4.2.7.2.686 Virgil as [id number] [address] 2019-03-23 2019-03-23 [facility] 1.2.840.114 [id number] Univers 12:52:00 23:59:00 Encounter Myra Echeverria 350.1.13.10 ity of [place] 4.2.7.2.686 [place] [id number] [facility] 804 Otho 2019-03-16 2019-03-16 Tele[facility] 1.2.840.114 [id number] Univers 00:00:00 00:00:00 Myra Lance 350.1.13.10 it y of Surgical 4.2.7.2.686 Virgil as Specialti [id number] Ia dical es [address] [facility] 2019-03-11 2019-03-11 Telephone [facility] 1.2.840.114 [id number] Univers 00:00:00 00:00:00 Myra Echeverria 350.1.13.10 i ty of [place] 4.2.7.2.686 [place] [facility] [id number] Ia dical nal [address] [facility] 2019-03-10 2019-03-10 [facility] 1.2.840.114 [id number] Univers 00:00:00 00:00:00 Myra Silverman [facility] 350.1.13.10 it y of Surgical 4.2.7.2.686 [place]gil as Specialti [id number] Me dical es [address] [facility] 2019-03-09 2019-03-09 [facility]phone [facility] [id number] Univers 00:00:00 00:00:00 Carlos Bailey [place] 350.1.13.10 i ty [place] 4.2.7.2.686 [place] Professio [id number] Me dical nal [address] [facility] 2019-02-23 2019-02-23 Orders Doctor LEDY 1.2.840.114 [id number] Univers 00:00:00 00:00:00 Only Unassigned, JAMIE 350.1.13.10 ity of [place] [facility] 4.2.7.2.686 Virgil as [id number] [address] 2019-02-13 2019-02-13 Emergency [facility] ERT [id number] Univers 16:58:49 18:41:[address] [facility] [facility] Results Test Description Test Time Test Comments Results Result Comments Source POCT MOLECULAR FLU 2022-10-26 15:46:58 Test Item Value Reference Range Interpretation Comme nts POCT Molecular FluA (test code = 88810-4) Negative Negative POCT Molecular FluB (test code = 15400-7) Negative Negative Lab Interpretation (test code = 50210-9) Normal [facility] SARS-COV-2 ANTIGEN (BINAX NOW)2022-10-26 15:42:00 Test Item Value Reference Range Interpretation Comments POCT SARS-COV-2 ANTIGEN (test Not Detected Not Detected code = 86658-6) On board controls acceptable Yes with C Line (test code = 3574) [facility] MOLECULAR [id number] 15:24:13 Test Item Value Reference Range Interpretation Comments POCT Molecular Strep (test code = Negative Negative 12111-8) Lab Interpretation (test code = Normal 82310-0) [facility]. METABOLIC PANEL (01023)2019-04-02 18:22:00 Test Item Value Reference Range Interpretation Comments NA (test code = 139 mmol/L 135-145 2444849859) K (test code = 4.4 mmol/L 3.5-5 8976006167) CL (test code = 100 mmol/L 98-108 0532201901) CO2 TOTAL (test code = 31 mmol/L 23-31 7720528610) AGAP (test code = 2-16 3463573510) BUN (test code = 14 mg/dL 7-23 3249883382) GLUCOSE (test code = 78 mg/dL 70-110 6248388783) CREATININE (test code 0.92 mg/dL 0.6-1.25 = 0473826266) TOTAL BILI (test code 0.6 mg/dL 0.1-1.1 = 3691618576) CALCIUM (test code = 10.2 mg/dL 8.6-10.6 8755405594) T PROTEIN (test code = 7.7 g/dL 6.3-8.2 0966343738) ALBUMIN (test code = 5.0 g/dL 3.5-5 8305593121) ALK PHOS (test code = 75 U/L 34-122 5065628743) ALTv (test code = 36 U/L 5-50 1742-6) AST(SGOT) (test code = 26 U/L 13-40 2623880835) eGFR Calculation mL/min/1.73m2 (Non-) (test code = 0703472640) eGFR Calculation mL/min/1.73m2 () (test code = 5373512650) CARINA (test code = CARINA) Association of Glomerular Filtration Rate (GFR) and Staging of Kidney Disease* + -+ + ---+| GFR (mL/min/1.73 m2) ?| With Kidney Damage ?| ?Without Kidney Damage+ -------+ ------+ ---------+| ?>90 ?| ?Stage one ?| ? Normal ?+ --+ -+ ----+| ?60-89 ?| ?Stage two ?| ? Decreased GFR ? + -+ + ---+| ?30-59 ?| ?Stage three ?| ? Stage three ? + -+ + ---+| ?15-29 ?| ?Stage four ? | ? Stage four ?+ --+ -+ ----+| ?<15 (or dialysis) ? ?| ?Stage five ? | ? Stage five ?+ --+ -+ ----+ *Each stage assumes the associated GFR level [...] or urine or abnormalities in imaging tests). [facility] Test Item Value Reference Range Interpretation Comments APPEARANCE (test code = Clear Clear 9744395197) COLOR (test code = Yellow Yellow 6297788288) PH (test code = 4.8-8.0 8379925563) SP GRAVITY (test code = 1.003-1.030 8785380505) GLU U QUAL (test code = Normal Normal 0845134811) BLOOD (test code = Negative Negative 3653373070) KETONES (test code = Negative Negative 3428888511) PROTEIN (test code = Negative Negative 2887-8) UROBILIN (test code = Normal Normal 0700919072) BILIRUBIN (test code = Negative Negative 6690889145) NITRITE (test code = Negative Negative 9724591657) LEUK HERBERT (test code = Negative Negative 4405286121) RBC/HPF (test code = <1 See_Comment [Autom ated message] 8197985785) The system [employer] generated this result transmitted ref erence range: 0 - 3 HP F. The reference range was not used to int erpret this result as normal/abnormal . WBC/HPF (test code = <1 See_Comment [Autom ated message] 0002556634) The system [employer] generated this result transmitted ref erence range: 0 - 5 HP F. The reference range was not used to int erpret this result as normal/abnormal . BACTERIA (test code = Negative Negative 2825135246) MUCOUS (test code = Slight Negative LPF A 3893415957) Lab Interpretation (test Abnormal code = 64066-2) [facility] WITH [id number] 17:30:00 Test Item Value Reference Range Interpretation [...] RDW-SD (test code = 41.9 fL 38.5-51.6 12742-9) RDW-CV (test code = 12.9 % 12.1-15.4 788-0) PLT (test code = See_Comment [Automated 777-3) message] The sy stem which generated this result transmitted reference range : 150 - 328 10*3/ ?L. The reference r vishnu was not used to interpret this result as normal/abnormal . MPV (test code = 11.5 fL 9.8-13 89537-0) NRBC/100 WBC (test See_Comment [Automat ed code = 5198888136) message] The system which generated this result transmitted reference range : 0.0 - 10.0 /100 WBCs. The refer ence range was not u sed to interpret th is result as normal/abnormal . NRBC x10^3 (test code <0.01 See_Comment [Auto mated = 6350042518) message] The s ystem which generated this result transmitted reference range : 10*3/?L. The reference range was not used to interpret this result as normal/abnormal . GRAN MAT (NEUT) % 56.3 % (test code = 770-8) IMM GRAN % (test code 0.30 % = 9489357229) LYMPH % (test code = 36.5 % 736-9) MONO % (test code = 6.2 % 5905-5) EOS % (test code = 0.5 % 713-8) BASO % (test code = 0.2 % 706-2) GRAN MAT x10^3(ANC) 3.64 10*3/uL 1.99-6.95 (test code = 1585326772) IMM GRAN x10^3 (test <0.03 0-0.06 code = 6755901893) LYMPH x10^3 (test code 2.36 10*3/uL 1.09-3.23 = 731-0) MONO x10^3 (test code 0.40 10*3/uL 0.36-1.02 = 742-7) EOS x10^3 (test code = 0.03 10*3/uL 0.06-0.53 L 711-2) BASO x10^3 (test code <0.03 0.01-0.09 = 704-7) Lab Interpretation Abnormal (test code = 48399-5) [facility] [id number] 17:27:00 Test Item Value Reference Range Interpretation [...] tions. Lab Interpretation (test Normal code = 87633-1) [facility] 17:26:00 Test Item Value Reference Range Interpretation Comments APTT Patient (test See_Comment [Automat ed code = 3173-2) message] The system which generated this result transmitted reference range : 23 - 38 Seconds . The reference range was not used to interpr et this result as normal/abnormal . CARINA (test code = CARINA) The [facility] patient population mean normal value for aPTT is 30 seconds. Lab Interpretation Normal (test code = 23152-9) [facility] 1 [id number] 17:10:19CHEST ONE VIEW HISTORY: ?Surgery TECHNIQUE: ?AP view of the chest is obtained. FINDINGS: A calcifiedgranuloma is seen in the left upper lobe. Smalldensities superimposed over the right upper lobe probably representgranulomas. Lungs are otherwise clear. Heart size and mediastinalsilhouette are normal.No pleural effusion or pneumothorax is seen. CONCLUSIONS: No acute cardiopulmonary disease. [facility], [facility] iant Results Inft - 04/02/2019 11:11 AM CSTCHEST ONE VIEWHISTORY: SurgeryTECHNIQUE: AP view of the chest is obtained.FINDINGS: A calcified granuloma is seen in the left upper lobe. Smalldensities superimposed over the right upper lobe probably representgranulomas. Lungs are otherwise clear. Heart size and mediastinalsilhouette are normal. No pleural effusion or pneumothorax is seen.CONCLUSIONS: No acute cardiopulmonary disease.[facility] SH[facility] RIGHT WO [id number] 20:32:51HISTORY: ?Pain in the right shoulder. Patient [...] abnormalities seen in the rotator cuff tendons. [facility], Radiant Results Inft User - 03/23/2019 2:34 PM CSTHISTORY: Pain in the right shoulder. Patient gave history of falling off abed in January 2019.TECHNIQUE: MR imaging of the RIGHT SHOULDER was done in multipleprojections using 1.5T MR unit and standard protocol.FINDINGS: Rotator cuff tendons are intact. Minimal glenohumeral [...] abnormalities seen in the rotator cuff tendons. [facility]"
[2022-12-08 06:26] LABS: Absolute Lymphocytes (CBC) 1.9 K/uL (0.7-4.9); Hematocrit 46.7 % (39.6-49.0); Lymphocytes % 24.7 % (15.3-44.8); MCV 84.9 fL (80-100); MPV 9.6 fL (7.6-11.3); Platelets 189 thou/uL (152-406)
[2022-12-08] MEDS ORDERED: ONDANSETRON 4 MG/2 ML VIAL ONE (06:35)
[2022-12-08] MEDS ORDERED: MORPHINE 4 MG/ML SYR ONE ×2 (06:35→07:41)
[2022-12-08] MEDS ORDERED: NA CHLORIDE 0.9% 1,000 ML ONE (06:35)
[2022-12-08 06:44] LABS: Albumin 3.9 g/dL (3.4-5.0); Bilirubin Total 0.5 mg/dL (0.2-1.0); Potassium 3.4 mEq/L (3.5-5.1); Protein, Total 7.6 g/dL (6.4-8.2)
[2022-12-08 08:07] LABS: Specific Gravity 1.012 (1.005-1.030); Urine Bilirubin NEGATIVE (Negative); Urine Blood Negative (Negative); Urine Clarity Clear (Clear); Urine Color Light-Yellow (Yellow); Urine Glucose NEGATIVE (Negative); Urine Protein NEGATIVE (Negative); Urine Urobilinogen Normal (Normal)
--- NOTE | 2022-12-08 11:19 | EDPHYS ---
Physician Documentation [facility] Name: Ranjit Rutledge Age: 32 yrs Sex: Male : 1990 Arrival Date: 12/08/2022 Time: 05:47 Bed 6 Private MD: ED Physician Shay Brito HPI: 12/08 06:04 This 32 yrs old Male presents to ER via Ambulatory with complaints of sp4 Possible Kidney Stone. 06:04 Record review - Stone Protocol - 11/30/2022 CLINICAL HISTORY: Flank pain. FINDINGS: The sp4 lower lung wilkerson are clear. Imaged portions of the liver and spleen show no suspicious findings on non-contrast imaging. The pancreas and adrenal glands are normal. No pathologic lymphadenopathy in the abdomen or pelvis. 5 mm stone is present inferior calyx left kidney. No additional stones seen. No hydronephrosis bilaterally. No bowel obstruction, free air, free fluid or abscess. Normal appendix noted. No significant bony abnormality. IMPRESSION: 5 mm calculus noted inferior calyx left kidney. No hydronephrosis bilaterally. . 32 year old male with history of prior renal stones, presents with cute onset of left flank and left groin pain starting at 4 in the morning today. Patient states that this is happened before in the past and the pain is similar to prior kidney stone pain. Additional medical history reveals anxiety, depression, irritable bowel syndrome, and seasonal allergies. Historical: - Allergies: 05:58 NSAIDS; as6 - PMHx: 05:58 Anxiety; Depression; Irritable bowel syndrome; Kidney stones; seasonal allergies; as6 - PSHx: 05:58 lithotripsy and lazer surgeries for kidney stoneX8; PRK; as6 - Immunization history:: Client reports having NOT received the Covid vaccine. - Social history:: Smoking status: Patient denies any tobacco usage or history of. - Family history:: not pertinent. ROS: 06:04 Constitutional: Negative for fever, chills, and weight loss, : Positive left flank sp4 pain and left groin pain, negative hematuria 06:04 All other systems are negative, Exam: 06:04 Constitutional: This is a well developed, well nourished patient who is awake, alert, sp4 and in no acute distress. Head/Face: Normocephalic, atraumatic. Eyes: Pupils equal round and reactive to light, extra-ocular motions intact. Lids and lashes normal. Conjunctiva and sclera are not injected. Cornea within normal limits. Periorbital areas with no swelling, redness, or edema. ENT: Nares patent. No nasal discharge, no septal abnormalities noted. Tympanic membranes are normal and external auditory canals are clear. Oropharynx with no redness, swelling, or masses, exudates, or evidence of obstruction, uvula midline. Mucous membranes moist. Neck: Trachea midline, no thyromegaly or masses palpated, and no cervical lymphadenopathy. Supple, full range of motion without nuchal rigidity, or vertebral point tenderness. Chest/axilla: Normal chest wall appearance and motion. Nontender with no deformity. No lesions are appreciated. Cardiovascular: Regular rate and rhythm with a normal S1 and S2. No gallops, murmurs, or rubs. Normal PMI, no JVD. No pulse deficits. Respiratory: Lungs have equal breath sounds bilaterally, clear to auscultation and percussion. No rales, rhonchi or wheezes noted. No increased work of breathing, no retractions or nasal flaring. Abdomen/GI: Soft, non-tender, with normal bowel sounds. No distension or tympany. No guarding or rebound. No evidence of tenderness throughout. Back: No spinal tenderness. No costovertebral tenderness. Male : Normal genitalia with no discharge or lesions. Skin: Warm, dry with normal turgor. Normal color with no rashes, no lesions, and no evidence of cellulitis. MS/ Extremity: Pulses equal, no cyanosis. Neurovascular intact. Full, normal range of motion. Neuro: Awake and alert, GCS 15, oriented to person, place, time, and situation. Cranial nerves II-XII grossly intact. Motor strength 5/5 in all extremities. Sensory grossly intact. Psych: Awake, alert, with orientation to person, place and time. Behavior, mood, and affect are within normal limits Vital Signs: 05:57 BP 158 / 116; Pulse 85; Resp 16 S; Temp 97.9(O); Pulse Ox 100% on R/A; Weight 104.33 kg as6 (R); Height 5 ft. 8 in. (R); Pain 9/10; 06:00 BP 150 / 100; Pulse 85; Resp 16; Pulse Ox 96% on R/A; jb4 07:10 BP 144 / 97; Pulse 82; Resp 17; Pulse Ox 99% on R/A; rs5 08:30 BP 148 / 95; Pulse 80; Resp 17; Pulse Ox 98% on R/A; rs5 10:00 BP 160 / 100; Pulse 78; Resp 18; Pulse Ox 100% on R/A; rs5 11:15 BP 157 / 105; Pulse 77; Resp 18; Pulse Ox 99% on R/A; rs5 05:57 Body Mass Index 34.97 (104.33 kg, 172.72 cm) as6 05:57 Pain Scale: Adult as6 MDM: 05:59 Patient medically screened. sp4 07:05 Transition of care: After a detail discussion of the patient's case, care is sp4 transferred to Shay Brito MD. 07:06 Transition of care: Care assumed from Davion Schmitt MD. ED course: Patient signed ec2 out to me by. Physician, in brief patient arrives today for persistent left-sided flank pain with a recent diagnosis of a kidney stone. Plan is to follow-up his work-up, CT imaging and reassess the patient. Metabolic profile is reassuring. No evidence of renal dysfunction. Hematologic profile without leukocytosis. Pending UA and CT scan. . 08:11 ED course: UA without blood present or urinary tract infection present.. ec2 10:18 ED course: CT abdomen pelvis shows left 6.6 nonobstructing renal calculus.. ec2 11:16 ED course: Under assessment patient with marked improvement in discomfort. I will ec2 discharge him and have him follow-up with urology. Presentation consistent with kidney stone. Return precautions given.. 12/08 05:59 Order name: CBC with Diff; Complete Time: 06:33 sp4 12/08 05:59 Order name: CMP; Complete Time: 07:08 sp4 12/08 05:59 Order name: Lipase; Complete Time: 07:08 sp4 12/08 05:59 Order name: Urinalysis w/ reflexes; Complete Time: 08:10 sp4 12/08 06:03 Order name: Stone Protocol EDMA 12/08 05:59 Order name: IV Saline Lock; Complete Time: 06:34 sp4 12/08 05:59 Order name: Labs collected and sent; Complete Time: 06:34 sp4 Administered Medications: 06:34 Drug: morphine IVP or IV 4 mg IVP once over 4 mins Route: IVP; Infused Over: 4 mins; jb4 Site: right antecubital; 07:15 Follow up: Response: No adverse reaction rs5 06:34 Drug: Ondansetron IVP 4 mg IVP once; over 2 minutes Route: IVP; Site: right antecubital;jb4 07:15 Follow up: Response: No adverse reaction rs5 06:34 Drug: NS 0.9% IV 1000 ml IV at 1 bolus Per protocol; 1000 mL bolus Route: IV; Rate: 1 jb4 bolus; Site: right antecubital; 07:15 Follow up: Response: No adverse reaction rs5 07:30 Drug: morphine IVP or IV 8 mg IVP once over 4 mins Route: IVP; Infused Over: 4 mins; rs5 Site: right antecubital; 07:45 Follow up: Response: No adverse reaction; Pain is decreased rs5 11:18 Drug: HYDROcodone-acetaminophen PO 5 mg-325 mg 1 tabs PO once Route: PO; rs5 11:50 Follow up: Response: No adverse reaction; Pain is decreased rs5 Disposition Summary: 12/08/22 11:18 Discharge Ordered Notes: Location: Home ec2 Condition: Stable ec2 Diagnosis - Non-obstructing Kidney Stone ec2 Followup: ec2 - With: Blake Duarte MD - When: Upon discharge from the Emergency Department - Reason: Further diagnostic work-up Discharge Instructions: - Discharge Summary Sheet ec2 - Kidney Stones, [id number] ec2 Forms: - Work release form eb - Medication Reconciliation Form ec2 - Thank You Letter ec2 - Antibiotic Education ec2 - Prescription Opioid Use ec2 - Patient Portal Instructions ec2 - Leadership Thank You Letter ec2 Prescriptions: - Hydrocodone-Acetaminophen 5-325 mg Oral Tablet - take 1 tablet ORAL route every 6 hours As needed; 12 tablet; Refills: 0, ec2 Product Selection Permitted Signatures: Dispatcher [employer] Luis West RN RN jb4 Rachid Yip RN RN as6 Abrahan Harman RN RN rs5 Davion Schmitt MD MD sp4 Shay Brito MD MD ec2 Corrections: (The following items were deleted from the chart) 06:01 06:00 Abdomen Pelvis Wo Con+CT.RAD.BRZ ordered. EDMS EDMS 07:08 07:06 ED course: Patient signed out to me by. Physician, in brief patient arrives today ec2 for persistent left-sided flank pain with a recent diagnosis of a kidney stone. Plan is to follow-up his work-up, CT imaging and reassess the patient.. ec2
--- NOTE | 2022-12-08 11:19 | ER ---
Nurse's Notes [facility] Name: Ranjit Rutledge Age: 32 yrs Sex: Male : 1990 Arrival Date: 12/08/2022 Time: 05:47 Bed 6 Private MD: Diagnosis: Non-obstructing Kidney Stone Presentation: 12/08 05:58 Chief complaint: Patient states: "I think I have a kidney stone again" pt c/o L flank as6 pain, hx of stones. Coronavirus screen: At this time, the client does not indicate any symptoms associated with coronavirus-19. Ebola Screen: No symptoms or risks identified at this time. Initial Sepsis Screen: Does the patient meet any 2 criteria? No. Patient's initial sepsis screen is negative. Does the patient have a suspected source of infection? No. Patient's initial sepsis screen is negative. Risk Assessment: Do you want to hurt yourself or someone else? Patient reports no desire to harm self or others. Onset of symptoms was December 08, 2022 at 04:20. 05:58 Acuity: CELENA 3 as6 05:58 Method Of Arrival: Ambulatory as6 Historical: - Allergies: 05:58 NSAIDS; as6 - PMHx: 05:58 Anxiety; Depression; Irritable bowel syndrome; Kidney stones; seasonal allergies; as6 - PSHx: 05:58 lithotripsy and lazer surgeries for kidney stoneX8; PRK; as6 - Immunization history:: Client reports having NOT received the Covid vaccine. - Social history:: Smoking status: Patient denies any tobacco usage or history of. - Family history:: not pertinent. Screenin:[facility] ED Fall Risk Assessment (Adult) History of falling in the last 3 months, rs5 including since admission No falls in past 3 months (0 pts) Confusion or Disorientation No (0 pts) Intoxicated or Sedated No (0 pts) Impaired Gait No (0 pts) Mobility Assist Device Used No (0 pt) Altered Elimination No (0 pt) Score/Fall Risk Level 0 - 2 = Low Risk. 07:15 Abuse screen: Denies threats or abuse. Nutritional screening: No deficits noted. rs5 Tuberculosis screening: No symptoms or risk factors identified. Assessment: 06:00 General: Appears in no apparent distress. uncomfortable, Behavior is calm, cooperative, jb4 appropriate for age. Pain: Complains of pain in Left flank Pain does not radiate. Pain currently is 9 out of 10 on a pain scale. Neuro: Level of Consciousness is awake, alert, obeys commands, Oriented to person, place, time, situation. Cardiovascular: Patient's skin is warm and dry. Respiratory: Airway is patent Respiratory effort is even, unlabored, Respiratory pattern is regular, symmetrical. GI: Reports nausea. : Reports pain in left flank(s). EENT: No signs and/or symptoms were reported regarding the EENT system. Derm: Skin is intact, Skin is pink, warm \\T\\ dry. Musculoskeletal: Circulation, motion, and sensation intact. Range of motion: intact in all extremities. 07:15 General: Appears distressed, uncomfortable, Behavior is cooperative. Pain: Complains of rs5 pain in left flank Pain does not radiate. Pain currently is 9 out of 10 on a pain scale. Quality of pain is described as aching, stabbing, Pain began suddenly, Is continuous. Pain: Noted to be grimacing. Neuro: Level of Consciousness is awake, alert, obeys commands, Oriented to person, place, time, situation. Neuro: Cardiovascular: Heart tones S1 S2 present Patient's skin is warm and dry. Rhythm is regular. Respiratory: Airway is patent Respiratory effort is even, unlabored, Respiratory pattern is regular, symmetrical, Breath sounds are clear bilaterally. GI: Bowel sounds present X 4 quads. Abd is soft and non tender X 4 quads. GI: Patient currently denies nausea, vomiting. : Reports pain in left flank(s). EENT: No signs and/or symptoms were reported regarding the EENT system. Derm: Skin is intact, Skin is pink, warm \\T\\ dry. Musculoskeletal: Circulation, motion, and sensation intact. Range of motion: intact in all extremities. 07:45 Reassessment: Patient states feeling better. Patient states symptoms have improved. rs5 Pain: Complains of pain in left flank Pain does not radiate. Pain currently is 3 out of 10 on a pain scale. Quality of pain is described as aching, Is continuous. Vital Signs: 05:57 BP 158 / 116; Pulse 85; Resp 16 S; Temp 97.9(O); Pulse Ox 100% on R/A; Weight 104.33 kg as6 (R); Height 5 ft. 8 in. (R); Pain 9/10; 06:00 BP 150 / 100; Pulse 85; Resp 16; Pulse Ox 96% on R/A; jb4 07:10 BP 144 / 97; Pulse 82; Resp 17; Pulse Ox 99% on R/A; rs5 08:30 BP 148 / 95; Pulse 80; Resp 17; Pulse Ox 98% on R/A; rs5 10:00 BP 160 / 100; Pulse 78; Resp 18; Pulse Ox 100% on R/A; rs5 11:15 BP 157 / 105; Pulse 77; Resp 18; Pulse Ox 99% on R/A; rs5 05:57 Body Mass Index 34.97 (104.33 kg, 172.72 cm) as6 05:57 Pain Scale: Adult as6 ED Course: 05:49 Patient arrived in ED. mr 05:58 Davion Scmhitt MD is Attending Physician. sp4 05:58 Arm band placed on. as6 06:00 Triage completed. as6 06:13 Luis Quinones, MICHAEL is Primary Nurse. jb4 06:15 Stone Protocol In Process Unspecified. EDMS 06:36 Initial lab(s) drawn, by nv, sent to lab. Inserted saline lock: 18 gauge in right jb4 antecubital area, using aseptic technique. Blood collected. 07:01 Attending Physician role handed off by Davion Schmitt MD ec2 07:01 Shay Brito MD is Attending Physician. ec2 07:15 Patient has correct armband on for positive identification. Bed in low position. Call rs5 light in reach. Side rails up X2. 11:18 Blake Duarte MD is Referral Physician. ec2 11:50 No provider procedures requiring assistance completed. rs5 11:50 IV discontinued, intact, bleeding controlled, No redness/swelling at site. Pressure rs5 dressing applied. Administered Medications: 06:34 Drug: morphine IVP or IV 4 mg IVP once over 4 mins Route: IVP; Infused Over: 4 mins; jb4 Site: right antecubital; 07:15 Follow up: Response: No adverse reaction rs5 06:34 Drug: Ondansetron IVP 4 mg IVP once; over 2 minutes Route: IVP; Site: right antecubital;jb4 07:15 Follow up: Response: No adverse reaction rs5 06:34 Drug: NS 0.9% IV 1000 ml IV at 1 bolus Per protocol; 1000 mL bolus Route: IV; Rate: 1 jb4 bolus; Site: right antecubital; 07:15 Follow up: Response: No adverse reaction rs5 07:30 Drug: morphine IVP or IV 8 mg IVP once over 4 mins Route: IVP; Infused Over: 4 mins; rs5 Site: right antecubital; 07:45 Follow up: Response: No adverse reaction; Pain is decreased rs5 11:18 Drug: HYDROcodone-acetaminophen PO 5 mg-325 mg 1 tabs PO once Route: PO; rs5 11:50 Follow up: Response: No adverse reaction; Pain is decreased rs5 Medication: 11:50 VIS not applicable for this client. rs5 Outcome: 11:18 Discharge ordered by . ec2 11:51 Patient left the ED. rs5 11:51 Discharged to home via wheelchair, with family, rs5 11:51 Condition: stable rs5 11:51 Discharge instructions given to patient, Instructed on discharge instructions, follow up and referral plans. medication usage, Demonstrated understanding of instructions, follow-up care, medications, Prescriptions given X 1, Signatures: Dispatcher [employer] EDMS Julisa Ty, Reg Reg mr Luis Quinones, RN RN jb4 Rachid Yip RN RN as6 Abrahan Harman RN RN rs5 Davion Schmitt MD MD sp4 Shay Brito MD MD ec2 Corrections: (The following items were deleted from the chart) 06:38 06:36 General: Appears in no apparent distress. comfortable, Behavior is calm, jb4 cooperative, appropriate for age, jb4 06:38 06:36 Pain: Complains of pain in low back area jb4 jb4 11:51 11:30 HYDROcodone-acetaminophen PO 5 mg-325 mg 1 tabs PO rs5 rs5
[2022-12-08] MEDS ORDERED: HYDROCODONE/APAP 5/325 MG TAB ONE (11:44)
[2022-12-08 12:35] VITALS: TEMP 97.9
[2022-12-08 12:36] VITALS: BP 150/100; O2SAT 96
--- NOTE | 2022-12-09 11:20 | RAD REPORT ---
EXAM DESCRIPTION: Stone Protocol CLINICAL HISTORY: LEFT FLANK PAIN COMPARISON: 11/30/2022 TECHNIQUE: Contiguous axial sections of the abdomen and pelvis were obtained without intravenous con trast. This exam was performed according to our departmental dose-optimization program, which include s automated exposure control, adjustment of the mA and/or kV according to patient size and/or use of iterative reconstruction technique. FINDINGS: Lower Chest: The imaged lung bases are clear. No pleural or pericardial effusion. Organs: The liver is fatty infiltrated. The spleen, gallbladder, pancreas, and adrenal glands are nor mal. The left kidney demonstrates a mid pole simple cyst measuring 3 cm. No follow-up imaging is requ ired. Nonobstructing calculus within the inferior pole measuring 6.6 mm. No ureteral calculus. The ri ght kidney is intact. GI/Bowel: There are no findings of small bowel obstruction. No acute bowel wall inflammatory changes. The appendix is normal. Pelvis: The bladder is normal. The rectum is normal. No pelvic free fluid. No pelvic lymphadenopathy. Peritoneum/Retroperitoneum: No intraperitoneal free air. No intraperitoneal free fluid. No mesenteric or retroperitoneal lymphadenopathy. Bones/Soft Tissues: There are no suspicious-appearing lytic or blastic osseous lesions. Nonaggressive rim calcified lytic lesion within the proximal femur centered at the intertrochanteric level measuri ng approximately 1.6 x 2.3 x 3.2 cm. This is stable over multiple prior examinations suggesting nonag gressive/benign etiology. 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 IMPRESSION: 6.6 mm nonobstructing left renal calculus. Fatty liver. RECOMMENDATIONS: Electronically signed by: Stalin Decker MD 12/08/2022 7:15 AM CDT Due to temporary technical issues with the PACS/Fluency reporting system, reports are being signed by the in house radiologists without review as a courtesy to insure prompt reporting. The interpreting radiologist is fully responsible for the content of the report.
== END 2022-12-08 11:51 | disposition home or self-care (01) ==
LOC: ER 05:47
DX: N20.0 Calculus of kidney (principal); Z87.442 Personal history of urinary calculi; Z88.6 Allergy status to analgesic agent
CPT/HCPCS: 85025; 36415; 81003; 83690; 80053; 76377; 74176; 96375; 96374; 99284; J2405; J7030

== ENCOUNTER 2022-12-12 17:38 | Emergency (ER) | payer OTHER ==
--- OUTSIDE RECORDS SUMMARY | 2022-12-12 17:41 | XMS REPORT | Continuity of Care Document ---
:1990 Author Organization [facility] t Address [address] [facility] [address] [place] [address] Care Team Providers Name Role Phone RAJINDER ANSARI Primary Care Physician Unavailable CHELSEA SANTIAGO Attending Clinician Unavailable BANG SPENCER Attending Clinician Unavailable BURAK REYES Attending Clinician Unavailable Ebrahim Burak LOZANO Attending Clinician Unknown, Attending Attending Clinician Unavailable Doctor Unassigned, [place] Attending Clinician Unavailable CARLOS VEGA Attending Clinician Unavailable Carlos Masterson Attending Clinician Myra Vanegas MD Attending Clinician Pob, Adc Lab Main Attending Clinician Unavailable MYRA VANEGAS Attending Clinician Unavailable JUANCHO ROBERTSON Attending Clinician Unavailable Myra Vanegas MD Admitting Clinician MYRA VANEGAS Admitting Clinician Unavailable JUANCHO ROBERTSON Admitting Clinician Unavailable Payers Payer Name Policy Type Policy Number Effective Date Expiration Date Lynn marcus BHASKAR OJEDA [id number] 2022 00:00:00 [facility] [id number] 2019 00:00:00 Problems Condition Condition Condition Status Onset Resolution Last Treating Co mments Source Name Details Category Date Date Treatment Clinician Date Obesity Obesity Disease Active Univers (BMI (BMI 2-10 ity of 30-39.9) 30-39.9) 00:00: [address] Internal Internal Disease Active Overview: Un ariane hinklemen 1-30 Formattin ity of t of right t of right 00:00: g of this [place] shoulder shoulder 00 note Medica l might be Branch different from the original. Added automatic ally from request for surgery [id number] Internal Internal Disease Active Overview: Un ariane mottaangemen 1-30 Added it y of t of right t of right 00:00: automatic [place] shoulder shoulder 00 ally from Med ical request Branch for surgery [id number] No known No known Disease Unive rs active active ity of problems problems [facility] Allergies, Adverse Reactions, Alerts Allergy Allergy Status Severity Reaction(s) Onset Inactive Treating Comm ents Source Name Type Date Date Clinician Nsaids Propensi Active Other - See States he Univers (Non-[place]a ty to comments 03-10 has a ity of roidal adverse 00:00: thin [place] Anti-Inf reaction 00 stomach Medic al lammator s esophagus Branc h y Drug) lining. NSAIDS Drug Active Other-Cmnt Univer s (NON-MICHA Class 1-15 ity of ROIDAL 00:00: [place] ANTI-INF 00 Medical LAMMATOR Branch Y DRUG) Nsaids Propensi Active Other - See States he Univers (Non-[place] ty to comments 15 has a ity of roidal adverse 00:00: thin [place] Anti-Inf reaction 00 stomach Medic al lammator s esophagus Branc h y Drug) lining. Social History Social Habit Start Date Stop Date Quantity Comments Source Gender identity Universit y of [facility] Sexual orientation Univer sity of [facility] History of tobacco Cigarette Smoker University of use [facility] History of Social 2019-09-29 2019-09-29 Univers ity of function 00:00:00 00:00:00 [facility] Alcohol intake 2019-04-19 2019-04-19 Current University of 00:00:00 00:00:00 non-drinker of [facility] [facility] alcohol Branch (finding) Tobacco use and 2015-07-12 2015-07-12 Smokeless Universit y of exposure 00:00:00 00:00:00 tobacco non-user [facility] Sex Assigned At [birth year] Universit y of 00:00:00 00:00:00 [facility] Smoking Status Start Date Stop Date Source Never smoked tobacco [facility] Medications Ordered Filled Start Stop Current Ordering Indication Dosage Frequency Signature Comments Components Source Medication Medication Date Date Medication? Clinician (SIG) Name Name methylPREDN Yes [id number] Take by [facility] [place] [facility] ISolone 9-02 mouth ity of (MEDROL, 00:00: SEE-INSTRU Virgil as CHIDI,) 4 mg 00 CTIONS. Medica l tablets follow [place] package directions EPINEPHrine 2020-0 Yes PRN, Univer s (PF) 2-10 Starting ity of 1:1,000 (1 17:03: Mon [place] mg/mL) 00 04/05/19 at Medical (ADRENALIN 1103, Branch (PF)) Until injection Discontinu ed, Routine, Intra-op ondansetron 2019-0 Yes 4mg 4 mg, Slow Univers (ZOFRAN 2-10 IV Push, ity of (PF)) 17:01: PRN, 1 [place] injection 4 26 dose, Medical mg Starting Branch 04/05/19 at 1101, Until Discontinu ed, Routine, Nausea and Vomiting (N/V), PACU FENTanyl PF 2020-0 Yes 50ug 50 mcg, Uni vers (SUBLIMAZE 2-10 Slow IV ity of (PF)) 17:01: Push, [place] injection 25 Q5MIN PRN, Medi roverto 50 [...] Discontinu ed, Routine, Pain (scale 4-6) lactated 2019-0 2020- No 1000mL at 20 Unive rs ringers IV 2-10 02-10 mL/hr, ity of infusion 13:00: 13:14 1,000 mL, Virgil as 1,000 mL 00 :00 IV Medical Infusion, Branch ONCE, 1 dose, 04/05/19 at 0700, Routine, DSU Pre-op acetaminoph 2019- 2020- No [id number] 1{tbl} Take 1 Univers en-codeine 2-10 -18 tablet by ity of 300-30 mg 00:00: 05:59 mouth [place] tablet 00 :00 every 6 Medical (six) Branch hours as needed for Pain (scale 4-6) or Pain (scale 7-10) for up to 7 days. acetaminoph 2019-2019- No [id number] 1{tbl} Take 1 Univers en-codeine 2-10 -18 tablet by ity of 300-30 mg 00:00: 05:59 mouth [place] tablet 00 :00 every 6 Medical (six) Branch hours as needed for Pain (scale 4-6) or Pain (scale 7-10) for up to 7 days. acetaminoph 2019-2019- No [id number] 1{tbl} Take 1 Univers en-codeine 2-10 -18 tablet by ity of 300-30 mg 00:00: 05:59 mouth [place] tablet 00 :00 every 6 Medical (six) Branch hours as needed for Pain (scale 4-6) or Pain (scale 7-10) for up to 7 days. ceFAZolin 2019- 2020- No 2g Univers in dextrose 03-29 ity of (iso-os) 06:00: 17:59 [place] (ANCEF) 2 00 :00 Medical gram/100 mL Branch Piggyback 2 g oxyCODONE-a 2020-0 2020- No 2{tbl} Uni vers cetaminophe 03-2903 ity of n 06:00: 17:59 [place] (PERCOCET) 00 :00 Medical 5-325 mg Branch per tablet 2 tablet diclofenac 2020-0 Yes 75mg Take 1 Unive rs 75 mg EC 1-14 tablet by ity of tablet 00:00: mouth 2 [place] 00 (two) Medical times Branch daily with [...] by ity of tablet 00:00: mouth 2 [place] (two) Medical times Branch daily with meals. diclofenac 2020-0 2020- No 75mg Take 1 Univ ers 75 mg EC 1-14 03-26 tablet by ity o f tablet 00:00: 00:00 mouth 2 00 :00 (two) Medical times Branch daily with meals. traMADol 50 2018- Yes [id number] 50mg Take 1 Univers mg tablet 2-21 tablet by ity o f 00:00: mouth [place] 00 every 6 Medical (six) Branch hours as needed for Pain (scale 7-10). cyclobenzap 2018- Yes [id number] 10mg Take 1 Univers rine 10 mg 2-21 tablet by ity of tablet 00:00: mouth 3 00 (three) Medical times Branch daily as needed for Muscle Spasms. traMADol 50 2018- Yes [id number] 50mg Take 1 Univers mg tablet 2-21 tablet by ity o f 00:00: mouth [place] 00 every 6 Medical (six) Branch hours as needed for Pain (scale 7-10). cyclobenzap 2018-02 Yes [id number] 10mg Take 1 Univers rine 10 mg 2-21 tablet by ity of tablet 00:00: mouth 3 [place] 00 (three) Medical times Branch daily as needed for Muscle Spasms. traMADol 50 2018-02 Yes [id number] 50mg Take 1 Univers mg tablet 2-21 tablet by ity o f 00:00: mouth [place] 00 every 6 Medical (six) Branch hours as needed for Pain (scale 7-10). cyclobenzap 2018-02 Yes [id number] 10mg Take 1 Univers rine 10 mg 2-21 tablet by ity of tablet 00:00: mouth 3 [place] 00 (three) Medical times Branch daily as needed for Muscle Spasms. traMADol 50 2018-02 Yes [id number] 50mg Take 1 Univers mg tablet 2-21 tablet by ity o f 00:00: mouth [place] 00 every 6 Medical (six) Branch hours as needed for Pain (scale 7-10). cyclobenzap 2018-02 Yes [id number] 10mg Take 1 Univers rine 10 mg 2-21 tablet by ity of tablet 00:00: mouth 3 [place] 00 (three) Medical times Branch daily as needed for Muscle Spasms. traMADol 50 2018-02 Yes [id number] 50mg Take 1 Univers mg tablet 2-21 tablet by ity o f 00:00: mouth [place] 00 every 6 Medical (six) Branch hours as needed for Pain (scale 7-10). cyclobenzap 2018-02 Yes [id number] 10mg Take 1 Univers rine 10 mg 2-21 tablet by ity of tablet 00:00: mouth 3 [place] 00 (three) Medical times Branch daily as needed for Muscle Spasms. traMADol 50 2018-02 Yes [id number] 50mg Take 1 Univers mg tablet 2-21 tablet by ity o f 00:00: mouth [place] 00 every 6 Medical (six) Branch hours as needed for Pain (scale 7-10). cyclobenzap 2018-02 Yes [id number] 10mg Take 1 Univers rine 10 mg 2-21 tablet by ity of tablet 00:00: mouth 3 [place] 00 (three) Medical times Branch daily as needed for Muscle Spasms. traMADol 50 2018-02 Yes [id number] 50mg Take 1 Univers mg tablet 2-21 tablet by ity o f 00:00: mouth [place] 00 every 6 Medical (six) Branch hours as needed for Pain (scale 7-10). cyclobenzap 2018-02 Yes [id number] 10mg Take 1 Univers rine 10 mg 2-21 tablet by ity of tablet 00:00: mouth 3 [place] 00 (three) Medical times Branch daily as needed for Muscle Spasms. traMADol 50 2018-02 Yes [id number] 50mg Take 1 Univers mg tablet 2-21 tablet by ity o f 00:00: mouth [place] 00 every 6 Medical (six) Branch hours as needed for Pain (scale 7-10). cyclobenzap 2018-02 Yes [id number] 10mg Take 1 Univers rine 10 mg 2-21 tablet by ity of tablet 00:00: mouth 3 [place] 00 (three) Medical times Branch daily as needed for Muscle Spasms. traMADol 50 2018-02 Yes [id number] 50mg Take 1 Univers mg tablet 2-21 tablet by ity o f 00:00: mouth [place] 00 every 6 Medical (six) Branch hours as needed for Pain (scale 7-10). cyclobenzap 2018-02 Yes [id number] 10mg Take 1 Univers rine 10 mg 2-21 tablet by ity of tablet 00:00: mouth 3 [place] 00 (three) Medical times Branch daily as needed for Muscle Spasms. traMADol 50 2018-02 Yes [id number] 50mg Take 1 Univers mg tablet 2-21 tablet by ity o f 00:00: mouth [place] 00 every 6 Medical (six) Branch hours as needed for Pain (scale 7-10). cyclobenzap 2018-02 Yes [id number] 10mg Take 1 Univers rine 10 mg 2-21 tablet by ity of tablet 00:00: mouth 3 [place] 00 (three) Medical times Branch daily as needed for Muscle Spasms. traMADol 50 2018-02 2020- No [id number] 50mg Take 1 Univers mg tablet 2-21 -31 tablet by ity of 00:00: 00:00 mouth [place] 00 :00 every 6 Medical (six) Branch hours as needed for Pain (scale 7-10). cyclobenzap 2018-02 2020- No [id number] 10mg Take 1 Univers rine 10 mg 2-21 -31 tablet by ity of tablet 00:00: 00:00 mouth 3 [place] 00 :00 (three) Medical times Branch daily as needed for Muscle Spasms. No known No Univers medications ity of [facility] No known No Univers medications ity of [facility] No known No Univers medications ity of [facility] Branch No known No Univers medications ity of [facility] Branch No known No Univers medications ity of [facility] Branch No known No Univers medications ity of [facility] No known No Univers medications ity of [facility] Vital Signs Vital Name Observation Time Observation Value Comments Source Systolic blood 2022-10-26 15:22:00 141 mm[Hg] Univer sity of [facility] Diastolic blood 2022-10-26 15:22:00 101 mm[Hg] Unive rsity of [facility] Heart rate 2022-10-26 15:22:00 108 /min Universi ty of [facility] Body temperature 2022-10-26 15:18:00 36.78 [facility] Respiratory rate 2022-10-26 15:18:00 22 /min Univ ersity of [facility] Body height 2022-10-26 15:18:00 172.7 cm Universi ty of [facility] Body weight 2022-10-26 15:18:00 104.191 kg Universi ty of [facility] BMI 2022-10-26 15:18:00 34.93 kg/m2 Universi ty of [facility] Oxygen saturation in 2022-10-26 15:18:00 97 /min [facility] Arterial blood by [facility] [facility] Pulse oximetry Branch Systolic blood 2019-04-19 21:43:00 114 mm[Hg] Univer sity of [facility] Diastolic blood 2019-04-19 21:43:00 83 mm[Hg] Unive rsity of [facility] Heart rate 2019-04-19 21:43:00 87 /min Universi ty of [facility] Body height 2019-04-19 21:43:00 172.7 cm Universi ty of [facility] Body weight 2019-04-19 21:43:00 104.327 kg Universi ty of [facility] BMI 2019-04-19 21:43:00 34.97 kg/m2 Universi ty of [facility] Systolic blood 2019-04-19 21:43:00 114 mm[Hg] Univer sity of [facility] Diastolic blood 2019-04-19 21:43:00 83 mm[Hg] Unive rsity of pressure [facility] Heart rate 2019-04-19 21:43:00 87 /min Universi ty of [facility] Body height 2019-04-19 21:43:00 172.7 cm Universi ty of [facility] Body weight 2019-04-19 21:43:00 104.327 kg Universi ty of [facility] BMI 2019-04-19 21:43:00 34.97 kg/m2 Universi ty of [facility] Systolic blood 2019-04-05 17:27:00 132 mm[Hg] Univer sity of pressure [facility] Diastolic blood 2019-04-05 17:27:00 83 mm[Hg] Unive rsity of pressure [facility] Heart rate 2019-04-05 17:27:00 85 /min Universi ty of [facility] Body temperature 2019-04-05 17:27:[address] [facility] Respiratory rate 2019-04-05 17:27:00 18 /min [facility] Oxygen saturation in 2019-04-05 17:27:00 97 /min [facility] Arterial blood by [facility] [facility] Pulse oximetry Branch Body height 2019-04-01 16:00:00 172.7 cm Universi ty of [facility] Body weight 2019-04-01 16:00:00 104.327 kg Universi ty of [facility] BMI 2019-04-01 16:00:00 34.97 kg/m2 Universi ty of [facility] Body height 2019-03-24 19:13:00 172.7 cm Universi ty of [facility] Body weight 2019-03-24 19:13:00 102.059 kg Universi ty of [facility] BMI 2019-03-24 19:13:00 34.21 kg/m2 Universi ty of [facility] Body height 2019-03-23 19:47:00 172.7 cm Universi ty of [facility] Body weight 2019-03-23 19:47:00 102.059 kg Universi ty of [facility] BMI 2019-03-23 19:47:00 34.21 kg/m2 Universi ty of [facility] Procedures Procedure Date / Time Performing Clinician Source Performed POCT SARS-COV-2 ANTIGEN 2022-10-26 15:42:00 Burak Reyes [facility] (BINAX NOW) Medical Branch POCT MOLECULAR FLU 2022-10-26 15:35:00 Unknown, [facility] [place] POCT MOLECULAR STREP 2022-10-26 15:16:00 Unknown, Attending [facility] Medical [place] ASSIGNMENT OF BENEFITS 2022-10-26 14:53:19 Doctor Medardo, [facility] [place] Medical Branch AUTHORIZATION FOR RELEASE 2019-04-05 06:01:00 Doctor Medardo, [facility] [place] Medical Branch URINALYSIS 2019-04-02 17:30:00 Myra Vanegas [facility] COMP. METABOLIC PANEL 2019-04-02 17:15:00 Myra Vanegas [facility] ([id number]) Medical [place] CBC WITH DIFFERENTIAL 2019-04-02 17:15:[address] [facility] PROTHROMBIN TIME / INR 2019-04-02 17:15:00 Myra Vanegas Uni [facility] ACTIVATED PARTIAL 2019-04-02 17:15:00 Myra Vanegas [facility] THRMPLAS LEONOR Medical Branch XR CHEST 1 VW 2019-04-02 17:08:00 Myra Vanegas [facility] ASSIGNMENT OF BENEFITS 2019-04-02 16:26:21 Doctor Medardo, [facility] [place] Medical [facility] INSURANCE CORRESPONDENCE 2019-03-26 06:01:00 Doctor Batres [facility] [place] Medical [place] DISCLOSURE AND CONSENT, 2019-03-24 06:01:00 Doctor Medardo, [facility] MEDICAL AND SURGICAL [place] Medical Bra [facility] PROCEDURES MR SHOULDER RIGHT WO 2019-03-23 20:24:21 Myra Vanegas [facility] CONTRAST Medical [place] CONSENT/REFUSAL FOR 2019-03-23 18:50:01 Doctor Batres [facility] DIAGNOSIS AND TREATMENT [place] Medical Branch ASSIGNMENT OF BENEFITS 2019-03-23 18:49:45 Doctor Medardo, [facility] [place] [facility] Branch INSURANCE CORRESPONDENCE 2019-02-23 06:01:00 Doctor Batres [facility] Name Medical [place] Encounters Start End Encounter Admission Attending Care Care Encounter Source Date/Time Date/Time Type Type Clinicians Facility Department ID 2022-12-13 2022-12-13 Outpatient R JACK [facility] [id number] Univers 09:00:00 09:00:00 CHELSEA itgarrett [facility] [place] 2022-10-26 2022-10-26 Outpatient R DOTTIE [facility] [id number] Univers 10:00:00 10:56:53 BURAK itgarrett [facility] [place] 2022-10-26 2022-10-26 Urgent Burak Reyes [facility] 1.2.840.114 [id number] Univers 10:00:00 10:56:53 Care Unknown, Attending HEALTH [id number] ity of [place] 4.2.7.2.686 Virgil as [place]?BLEA [phone] Ri juan [address] MEDICAL OFFICE BUILDING 2022-10-26 2022-10-26 Orders Doctor LEDY 1.2.840.114 [id number] Univers 00:00:00 00:00:00 Only Unassigned, JAMIE 350.1.13.10 ity of [place] [facility] 4.2.7.2.[address] Virgil as [id number] 2019-04-19 2019-04-19 [facility] [id number] Univers 16:15:00 16:15:00 CARLOS ity [facility] [place] 2019-04-19 2019-04-[address] [facility] 1.2.840.114 [id number] Univers 15:34:02 16:12:48 Visit [facility] [id number] it y of Surgical 4.2.7.2.686 Virgil as Specialti [id number] Ri mirnaal 198 [facility] 2019-04-19 2019-04-[address] [facility] 1.2.840.114 [id number] 15:34:02 16:12:48 Visit [facility] [id number] Surgical 4.2.7.2.686 Specialti [phone] es [address] [place] [address] 2019-04-05 2019-04-05 [facility] 1.2.840.114 [id number] Univers 06:57:00 12:04:00 Encounter Myra [place] 350.1.13.10 ity of [place] 4[place]2.7.2.686 [place] Surgical [id number] [facility] 071 Branch 2019-04-05 2019-04-05 Orders Doctor LEDY 1.2.840.114 [id number] Univers 00:00:00 00:00:00 Only Unassigned, JAMIE 350.1.13.10 ity of [place] [facility] 4.2.7.2.686 Virgil as [id number] [facility] 009 [place] 2019-04-02 2019-04-02 Stripping [employer] Ellen, Adc Lab Main [facility] 1.2.8 40.114 [id number] Univers 10:28:59 10:43:59 Visit Romina Myra L [place] 350.1.13.10 ity of [place] 4.2.7.2.686 [place] Professio [id number] Ri dical nal 353 [facility] 2019-04-02 2019-04-02 [facility] [id number] Univers 10:32:04 08:59:00 MYRA ity of [facility] 2019-04-02 2019-04-02 [facility] 1.2.840.114 [id number] Univers 08:00:00 08:59:00 Encounter Myra Echeverria 350.1.13.10 ity of [place] 4.2.7.2.686 [place] [id number] [facility] 807 Branch 2019-04-02 2019-04-02 Orders Doctor LEDY 1.2.840.114 [id number] Univers 00:00:00 00:00:00 Only Unassigned, JAMIE 350.1.13.10 ity of [place] [facility] 4.2.7.2.686 Virgil as [id number] [facility] 009 [place] 2019-03-29 2019-03-29 Prep For [facility] 1.2.840.114 [id number] Univers 00:00:00 00:00:00 Surgery Myra [facility] 350.1.13.10 it y of Surgical 4.2.7.2.686 [place] as Specialti [id number] Ri dical es 198 [facility] 2019-03-26 2019-03-26 Orders Doctor LEDY 1.2.840.114 [id number] Univers 00:00:00 00:00:00 Only Unassigned, JAMIE 350.1.13.10 ity of [place] [facility] 4.2.7.2.[id number] 2019-03-24 2019-03-[address] [facility] 1.2.004.907 [id number] Univers 12:58:00 13:50:22 Visit Myra Lance 350.1.13.10 it y of Surgical 4.2.7.2.686 Vir[place] as Specialti [id number] Ri dical es 198 [facility] 2019-03-24 2019-03-[address] [facility] 1.2.148.266 [id number] Univers 00:00:00 00:00:00 [facility] 350.1.13.10 it y of Surgical 4.2.7.2.686 Vir[place] as Specialti [id number] Ri dical es 198 [facility] 2019-03-24 2019-03-24 Orders Doctor LEDY 1.2.840.114 [id number] Univers 00:00:00 00:00:00 Only Unassigned, JAMIE 350.1.13.10 ity of [place] [facility] 4.2.7.2.[id number] 2019-03-23 2019-03-[address] [facility] 1.2.840.114 [id number] Univers 12:52:00 23:59:00 Encounter Myra Echeverria 350.1.13.10 ity of [place] 4.2.7.2.686 [place] [facility] [id number] [facility] 804 [place] 2019-03-16 2019-03-[address] [facility] 1.2.840.114 [id number] Univers 00:00:00 00:00:00 Myra Lance 350.1.13.10 it y of Surgical 4.2.7.2.686 Virgil as Specialti [phone] Ri dical es 198 [facility] 2019-03-11 2019-03-[address] [facility] 1.2.840.114 [id number] Univers 00:00:00 00:00:00 Myra Echeverria 350.1.13.10 i ty of [place] 4.2.7.2.686 [place] Profess[place] [id number] Ri dical nal 198 [facility] 2019-03-10 2019-03-[address] [facility] 1.2.840.114 [id number] Univers 00:00:00 00:00:00 Myra Silverman [facility] 350.1.13.10 it y of Surgical 4.2.7.2.686 Virgil as Specialti [phone] Ri dical es 198 [facility] 2019-03-09 2019-03-[address] [facility] [id number] [id number] Univers 00:00:00 00:00:00 Carlos Echeverria 350.1.13.10 i ty of [place] 4.2.7.2.686 [place] Profess[place] [phone] Ri dical nal 198 [facility] 2019-02-23 2019-02-23 Orders Doctor LEDY 1.2.840.114 [id number] Univers 00:00:00 00:00:00 Only Unassigned, JAMIE 350.1.13.10 ity of [place] [facility] 4.2.7.2.[id number] 2019-02-13 2019-02-13 Emergency X AILYN [facility] ERT [id number] Univers 16:58:49 18:41:00 JUANCHO duarte [facility] [place] Results Test Description Test Time Test Comments Results Result Comments Source POCT MOLECULAR FLU 2022-10-26 15:46:58 Test Item Value Reference Range Interpretation Comme nts POCT Molecular FluA (test code = 92982-8) Negative Negative POCT Molecular FluB (test code = 97923-2) Negative Negative Lab Interpretation (test code = 94228-6) Normal [facility] SARS-COV-2 ANTIGEN (BINAX NOW)2022-10-26 15:42:00 Test Item Value Reference Range Interpretation Comments POCT SARS-COV-2 ANTIGEN (test Not Detected Not Detected code = 53871-5) On board controls acceptable Yes with C Line (test code = 3574) [facility] MOLECULAR [id number] 15:24:13 Test Item Value Reference Range Interpretation Comments POCT Molecular Strep (test code = Negative Negative 32612-7) Lab Interpretation (test code = Normal 31974-2) [facility]. METABOLIC PANEL (31225)2019-04-02 18:22:00 Test Item Value Reference Range Interpretation Comments NA (test code = 139 mmol/L 135-145 8347604788) K (test code = 4.4 mmol/L 3.5-5 3310603745) CL (test code = 100 mmol/L 98-108 9019873138) CO2 TOTAL (test code = 31 mmol/L 23-31 8269497824) AGAP (test code = 2-16 1275501034) BUN (test code = 14 mg/dL 7-23 2663857395) GLUCOSE (test code = 78 mg/dL 70-110 0333330074) CREATININE (test code 0.92 mg/dL 0.6-1.25 = 1227170778) TOTAL BILI (test code 0.6 mg/dL 0.1-1.1 = 6884115538) CALCIUM (test code = 10.2 mg/dL 8.6-10.6 8323279277) T PROTEIN (test code = 7.7 g/dL 6.3-8.2 7541939267) ALBUMIN (test code = 5.0 g/dL 3.5-5 4631778512) ALK PHOS (test code = 75 U/L 34-122 3991287302) ALTv (test code = 36 U/L 5-50 1742-6) AST(SGOT) (test code = 26 U/L 13-40 2876886848) eGFR Calculation mL/min/1.73m2 (Non-) (test code = 7647531645) eGFR Calculation mL/min/1.73m2 () (test code = 5278758063) CARINA (test code = CARINA) Association of [...] or urine or abnormalities in imaging tests). [facility]:12[facility]00 Test Item Value Reference Range Interpretation Comments APPEARANCE (test code = Clear Clear 8432417956) COLOR (test code = Yellow Yellow 8639164746) PH (test code = 4.8-8.0 [id number]) SP GRAVITY (test code = 1.003-1.030 8429379276) GLU U QUAL (test code = Normal Normal 8193475795) BLOOD (test code = Negative Negative 5472775201) KETONES (test code = Negative Negative 5591858058) PROTEIN (test code = Negative Negative 2887-8) UROBILIN (test code = Normal Normal 5909065715) BILIRUBIN (test code = Negative Negative 6961379221) NITRITE (test code = Negative Negative 6915934865) LEUK HERBERT (test code = Negative Negative 6869024208) RBC/HPF (test code = <1 See_Comment [Autom ated message] 1358923307) The system [employer] generated this result transmitted ref erence range: 0 - 3 HP F. The reference range was not used to int erpret this result as normal/abnormal . WBC/HPF (test code = <1 See_Comment [Autom ated message] 7048119704) The system [employer] generated this result transmitted ref erence range: 0 - 5 HP F. The reference range was not used to int erpret this result as normal/abnormal . BACTERIA (test code = Negative Negative 6664790161) MUCOUS (test code = Slight Negative LPF A 4652608101) Lab Interpretation (test Abnormal code = 36558-3) [facility] WITH [id number] 17:30:00 Test Item Value Reference Range Interpretation [...] RDW-SD (test code = 41.9 fL 38.5-51.6 73732-6) RDW-CV (test code = 12.9 % 12.1-15.4 788-0) PLT (test code = See_Comment [Automated 777-3) message] The sy stem which generated this result transmitted reference range : 150 - 328 10*3/ ?L. The reference r vishnu was not used to interpret this result as normal/abnormal . MPV (test code = 11.5 fL 9.8-13 75691-3) NRBC/100 WBC (test See_Comment [Automat ed code = 9149155717) message] The system which generated this result transmitted reference range : 0.0 - 10.0 /100 WBCs. The refer ence range was not u sed to interpret th is result as normal/abnormal . NRBC x10^3 (test code <0.01 See_Comment [Auto mated = 6218918012) message] The s ystem which generated this result transmitted reference range : 10*3/?L. The reference range was not used to interpret this result as normal/abnormal . GRAN MAT (NEUT) % 56.3 % (test code = 770-8) IMM GRAN % (test code 0.30 % = 9711966953) LYMPH % (test code = 36.5 % 736-9) MONO % (test code = 6.2 % 5905-5) EOS % (test code = 0.5 % 713-8) BASO % (test code = 0.2 % 706-2) GRAN MAT x10^3(ANC) 3.64 10*3/uL 1.99-6.95 (test code = 6551566966) IMM GRAN x10^3 (test <0.03 0-0.06 code = 8423040730) LYMPH x10^3 (test code 2.36 10*3/uL 1.09-3.23 = 731-0) MONO x10^3 (test code 0.40 10*3/uL 0.36-1.02 = 742-7) EOS x10^3 (test code = 0.03 10*3/uL 0.06-0.53 L 711-2) BASO x10^3 (test code <0.03 0.01-0.09 = 704-7) Lab Interpretation Abnormal (test code = 08789-1) [id number] 17:27:00 Test Item Value Reference Range Interpretation Comments PROTIME PATIENT (test See_Comment [Auto mated message] code = 5964-2) The system [employer] ich generated this result transmitted ref erence range: 12.0 - 1 4.7 Seconds. The re ference range was not u sed to interpret this result as normal/abnor mal. INR (test code = 6301-6) Nor mal INR <1.1; Warfarin Therap eutic range 2.0 to 3. 0 or 2.5 to 3.5, dep ending upon the indica tions. Lab Interpretation (test Normal code = 33402-1) [id number] 17:26[facility]00 Test Item Value Reference Range Interpretation Comments APTT Patient (test See_Comment [Automat ed code = 3173-2) message] The system which generated this result transmitted reference range : 23 - 38 Seconds . The reference range was not used to interpr et this result as normal/abnormal . CARINA (test code = CARINA) The [facility] patient population mean normal value for aPTT is 30 seconds. Lab Interpretation Normal (test code = 76417-9) [facility] 1 [id number] 17:10:19CHEST ONE VIEW HISTORY: ?Surgery TECHNIQUE: ?AP view of the chest is obtained. FINDINGS: A calcifiedgranuloma is seen in the left upper lobe. Smalldensities superimposed over the right upper lobe probably representgranulomas. Lungs are otherwise clear. Heart size and mediastinalsilhouette are normal.No pleural effusion or pneumothorax is seen. CONCLUSIONS: No acute cardiopulmonary disease. [facility], [facility] iant Results Inft User - 04/02/2019 11:11 AM CSTCHEST ONE VIEWHISTORY: SurgeryTECHNIQUE: AP view of the chest is obtained.FINDINGS: A calcified granuloma is seen in the left upper lobe. Smalldensities superimposed over the right upper lobe probably representgranulomas. Lungs are otherwise clear. Heart size and mediastinalsilhouette are normal. No pleural effusion or pneumothorax is seen.CONCLUSIONS: No acute cardiopulmonary disease.[facility] RIGHT WO [id number] 20:32:51HISTORY: ?Pain in the right shoulder. Patient [...] abnormalities seen in the rotator cuff tendons. [facility], Radiant Results Inft User - 03/23/2019 2:34 [...] abnormalities seen in the rotator cuff tendons. [facility]"
[2022-12-12 18:15] LABS: Absolute Lymphocytes (CBC) 3.2 K/uL (0.7-4.9); Hematocrit 46.8 % (39.6-49.0); Lymphocytes % 38.5 % (15.3-44.8); MCV 84.3 fL (80-100); MPV 9.6 fL (7.6-11.3); Platelets 226 thou/uL (152-406); RBC Red Blood Cell Count 5.55 M/uL (4.33-5.43)
[2022-12-12] MEDS ORDERED: ONDANSETRON 4 MG/2 ML VIAL ONE (18:18)
[2022-12-12] MEDS ORDERED: HYDROMORPHONE HCL 1 MG/ML INJ ONE ×2 (18:18→19:01)
[2022-12-12 18:37] LABS: Albumin 4.3 g/dL (3.4-5.0); Bilirubin Total 0.3 mg/dL (0.2-1.0); Potassium 3.7 mEq/L (3.5-5.1); Protein, Total 8.1 g/dL (6.4-8.2)
--- NOTE | 2022-12-12 19:00 | RAD REPORT ---
EXAM DESCRIPTION: CT - Abdomen Pelvis Wo Contrast - 12/12/2022 6:15 pm CLINICAL HISTORY: kidney stone COMPARISON: Stone Protocol dated 12/08/2022; Stone Protocol dated 11/30/2022; Stone Protocol dated ; Stone Protocol dated 04/13/2020 TECHNIQUE: Thin cut axial CT imaging of the abdomen and pelvis was performed without IV contrast. Mu ltiplanar reformats were generated and reviewed. All CT scans are performed using dose optimization technique as appropriate and may include automated exposure control or mA/KV adjustment according to patient size. FINDINGS: Dependent geographic ground-glass opacities in the lower lungs bilaterally. The liver shows diffuse parenchymal hypoattenuation suggesting steatosis. Adrenal glands, spleen, and pancreas show no suspicious findings. Gallbladder and biliary tree are also without suspicious findi ng. Symmetric renal contour, without suspicious parenchymal findings within limits of noncontrast techniq ue. Cortical ovoid hypoattenuating 2.8 cm left renal midpole lesion is stable suggestive of small cys ts. Calcific 9 millimeter left lower pole calculus is unchanged. No evidence of radiopaque calculi or hydroureteronephrosis. No dilated bowel loops or bowel wall thickening. No free air, free fluid or inflammatory stranding. N o hernia, mass or bulky lymphadenopathy. The urinary bladder is without significant finding. No suspicious bony findings. IMPRESSION: Bibasilar dependent geographic ground-glass opacities, may relate to atelectasis, less l ikely sequelae of vascular congestion. No acute intra-abdominal process. Other stable findings including nonobstructing calculus.
--- NOTE | 2022-12-12 19:23 | ER ---
[facility]'s Notes [facility] Name: Ranjit Rutledge Age: 32 yrs Sex: Male : 1990 Arrival Date: 12/12/2022 Time: 17:38 Bed 8 Private MD: Diagnosis: Abdominal pain, flank pain, resolved kidney stone Presentation: 12/12 17:51 Chief complaint: Patient states: LLQ pain radiating to left testicle, was diagnosed iw with kidney stone on Friday, feels like it's stuck. Coronavirus screen: At this time, the client does not indicate any symptoms associated with coronavirus-19. Ebola Screen: Patient negative for fever greater than or equal to 101.5 degrees Fahrenheit, and additional compatible Ebola Virus Disease symptoms Patient denies exposure to infectious person. Patient denies travel to an Ebola-affected area in the 21 days before illness onset. No symptoms or risks identified at this time. Initial Sepsis Screen: Does the patient meet any 2 criteria? No. Patient's initial sepsis screen is negative. Does the patient have a suspected source of infection? No. Patient's initial sepsis screen is negative. Risk Assessment: Do you want to hurt yourself or someone else? Patient reports no desire to harm self or others. Onset of symptoms was December 12, 2022. 17:51 Method Of Arrival: Ambulatory iw 17:51 Acuity: CELENA 3 iw Historical: - Allergies: 17:52 NSAIDS; iw - Home Meds: 17:52 duloxetine oral once [Active]; omeprazole Oral [Active]; Propranolol Oral as needed iw [Active]; - PMHx: 17:52 Anxiety; Depression; Depression; Irritable bowel syndrome; Kidney stones; seasonal iw allergies; - PSHx: 17:52 lithotripsy and lazer surgeries for kidney stoneX8; PRK; iw - Immunization history:: Client reports having NOT received the Covid vaccine. - Social history:: Smoking status: Patient denies any tobacco usage or history of. Screenin:18 [facility] [place] ED Fall Risk Assessment (Adult) History of falling in the last 3 months, db including since admission No falls in past 3 months (0 pts) Confusion or Disorientation No (0 pts) Intoxicated or Sedated No (0 pts) Impaired Gait No (0 pts) Mobility Assist Device Used No (0 pt) Altered Elimination No (0 pt) Score/Fall Risk Level 0 - 2 = Low Risk Oriented to surroundings, Maintained a safe environment. Abuse screen: Denies threats or abuse. Denies injuries from another. Nutritional screening: No deficits noted. Tuberculosis screening: No symptoms or risk factors identified. Assessment: 18:00 Reassessment: Patient appears in no apparent distress at this time. Patient and/or db family updated on plan of care and expected duration. Pain level reassessed. Patient is alert, oriented x 3, equal unlabored respirations, skin warm/dry/pink. General: Appears in no apparent distress. comfortable, Behavior is calm, cooperative. Pain: Complains of pain in abdomen. Neuro: Level of Consciousness is awake, alert, obeys commands, Oriented to person, place, time, situation. 18:52 Reassessment: PATIENT GIVEN DILAUDID 1MG IVP. GI: Bowel sounds present X 4 quads. Abd db is soft. 19:20 Reassessment: Patient appears in no apparent distress at this time. No changes from [facility] previously documented assessment. Patient and/or family updated on plan of care and expected duration. Pain level reassessed. Patient is alert, oriented x 3, equal unlabored respirations, skin warm/dry/pink. 20:10 Reassessment: Patient appears in no apparent distress at this time. No changes from [facility] previously documented assessment. Patient and/or family updated on plan of care and expected duration. Pain level reassessed. Patient is alert, oriented x 3, equal unlabored respirations, skin warm/dry/pink. Vital Signs: 17:53 BP 149 / 107; Pulse 103; Resp 16; Temp 98; Pulse Ox 96% on R/A; Weight 104.33 kg; iw Height 5 ft. 8 in. ; Pain 9/10; 18:45 BP 147 / 109; Pulse 95; Resp 18; Pulse Ox 95% ; Pain 7/10; db 17:53 Body Mass Index 34.97 (104.33 kg, 172.72 cm) iw 17:53 Pain Scale: Adult iw 18:45 Pain Scale: Adult db ED Course: 17:40 Patient arrived in ED. im 17:50 Binh Almanzar MD is Attending Physician. sp3 17:52 Triage completed. iw 17:54 Arm band placed on. iw 18:13 Racheal Larson, RN is Primary Nurse. me1 18:16 CT Abd/Pelvis - Without Contrast In Process Unspecified. EDMS 18:18 Patient has correct armband on for positive identification. Side rails up X 1. db 18:53 Inserted saline lock: 22 gauge in right antecubital area, using aseptic technique. db Blood collected. 19:28 Urinalysis w/ reflexes Sent. me1 20:09 Provided Education on: Discharge instructions. jw7 20:09 No provider procedures requiring assistance completed. IV discontinued, intact, jw7 bleeding controlled, No redness/swelling at site. Pressure dressing applied. Administered Medications: 18:08 Drug: HYDROmorphone IVP 1 mg IVP once Route: IVP; Site: right antecubital; iw 18:52 Follow up: Response: No adverse reaction db 19:28 Follow up: Response: No adverse reaction; Pain is decreased me1 18:09 Drug: Ondansetron IVP 4 mg IVP once; over 2 minutes Route: IVP; Site: right antecubital;iw 19:28 Follow up: Response: No adverse reaction; Nausea is decreased me1 18:52 Drug: HYDROmorphone IVP 1 mg IVP once Route: IVP; Site: right antecubital; db 19:28 Follow up: Response: No adverse reaction; Pain is decreased me1 Medication: 20:09 VIS not applicable for this client. jw7 Outcome: 19:22 Discharge ordered by . sp3 20:09 Discharged to home ambulatory, jw7 20:09 Condition: stable 20:09 Discharge instructions given to patient, Instructed on discharge instructions, follow up and referral plans. 20:11 Patient left the ED. jw7 Signatures: Dispatcher [employer] Octavia Stewart, RN MICHAEL iw Binh Almanzar MD MD sp3 Katharine Molina RN RN jw7 Naz Oneill, RN RN db Lety Erickson Michelle RN RN la1
--- NOTE | 2022-12-12 19:23 | EDPHYS ---
Physician Documentation [facility] Name: Ranjit Rutledge Age: 32 yrs Sex: Male : 1990 Arrival Date: 12/12/2022 Time: 17:38 Bed 8 Private MD: ED Physician Binh Almanzar HPI: 12/12 19:18 This 32 yrs old Male presents to ER via Ambulatory with complaints of Abdominal Pain. sp3 19:18 32-year-old male with a history of kidney stones, irritable bowel, depression, anxiety sp3 now presents to the ED with recurrent left-sided flank pain. Patient was seen at this facility on December 08 where he had a greater than 6 mm kidney stone. He states that his pain is still there and he is nauseated. No other symptoms reported including fever, headache, URI symptoms, chest pain, shortness of breath, intra-abdominal pain, vomiting or diarrhea, or any other signs or symptoms at this time. Urine output is still normal. Remainder of ROS is negative.. Historical: - Allergies: 17:52 NSAIDS; iw - Home Meds: 17:52 duloxetine oral once [Active]; omeprazole Oral [Active]; Propranolol Oral as needed iw [Active]; - PMHx: 17:52 Anxiety; Depression; Depression; Irritable bowel syndrome; Kidney stones; seasonal iw allergies; - PSHx: 17:52 lithotripsy and lazer surgeries for kidney stoneX8; PRK; iw - Immunization history:: Client reports having NOT received the Covid vaccine. - Social history:: Smoking status: Patient denies any tobacco usage or history of. ROS: 19:18 Constitutional: Negative for fever, chills, and weight loss, Eyes: Negative for injury, sp3 pain, redness, and discharge, ENT: Negative for injury, pain, and discharge, Neck: Negative for injury, pain, and swelling, Cardiovascular: Negative for chest pain, palpitations, and edema, Respiratory: Negative for shortness of breath, cough, wheezing, and pleuritic chest pain, Back: Negative for injury and pain, MS/Extremity: Negative for injury and deformity, Skin: Negative for injury, rash, and discoloration, Neuro: Negative for headache, weakness, numbness, tingling, and seizure, Psych: Negative for depression, anxiety, suicide ideation, homicidal ideation, and hallucinations, Allergy/Immunology: Negative for hives, rash, and allergies, Endocrine: Negative for neck swelling, polydipsia, polyuria, polyphagia, and marked weight changes, 19:18 All other systems are negative, Exam: 19:19 Constitutional: This is a well developed, well nourished patient who is awake, alert, sp3 and in no acute distress. Head/Face: Normocephalic, atraumatic. Eyes: Pupils equal round and reactive to light, extra-ocular motions intact. Lids and lashes normal. Conjunctiva and sclera are non-icteric and not injected. Cornea within normal limits. Periorbital areas with no swelling, redness, or edema. Neck: Trachea midline, no thyromegaly or masses palpated, and no cervical lymphadenopathy. Supple, full range of motion without nuchal rigidity, or vertebral point tenderness. No Meningismus. Chest/axilla: Normal chest wall appearance and motion. Nontender with no deformity. No lesions are appreciated. Cardiovascular: Regular rate and rhythm with a normal S1 and S2. No gallops, murmurs, or rubs. Normal PMI, no JVD. No pulse deficits. Respiratory: Lungs have equal breath sounds bilaterally, clear to auscultation and percussion. No rales, rhonchi or wheezes noted. No increased work of breathing, no retractions or nasal flaring. Back: No spinal tenderness. No costovertebral tenderness. Full range of motion. Skin: Warm, dry with normal turgor. Normal color with no rashes, no lesions, and no evidence of cellulitis. MS/ Extremity: Pulses equal, no cyanosis. Neurovascular intact. Full, normal range of motion. Neuro: Awake and alert, GCS 15, oriented to person, place, time, and situation. Cranial nerves II-XII grossly intact. Motor strength 5/5 in all extremities. Sensory grossly intact. Cerebellar exam normal. Normal gait. Psych: Awake, alert, with orientation to person, place and time. Behavior, mood, and affect are within normal limits. 19:19 Abdomen/GI: Patient has mild pain to palpation left upper and lower quadrants. No peritoneal signs, rebound or guarding noted. No CVA tenderness., Vital Signs: 17:53 BP 149 / 107; Pulse 103; Resp 16; Temp 98; Pulse Ox 96% on R/A; Weight 104.33 kg; iw Height 5 ft. 8 in. ; Pain 9/10; 18:45 BP 147 / 109; Pulse 95; Resp 18; Pulse Ox 95% ; Pain 7/10; db 17:53 Body Mass Index 34.97 (104.33 kg, 172.72 cm) iw 17:53 Pain Scale: Adult iw 18:45 Pain Scale: Adult db MDM: 17:58 Patient medically screened. sp3 19:19 Data reviewed: vital signs, nurses notes, old medical records, lab test result(s), sp3 radiologic studies. ED course: 32-year-old male with recurrent flank pain presumably from kidney stone. However CT scan demonstrates no ureteral stones. Nonobstructing renal stones are present. Laboratory values are all within normal limits. Patient is improved after second dose of narcotic medication. We will safely discharge him home at this time with no evidence of ureteral stones. He can follow-up with his urologist as deemed necessary.. 12/12 17:58 Order name: CBC with Diff; Complete Time: 19:16 sp3 12/12 17:58 Order name: CMP; Complete Time: 19:16 sp3 12/12 17:58 Order name: Urinalysis w/ reflexes; Complete Time: 19:56 sp3 12/12 17:58 Order name: CT Abd/Pelvis - Without Contrast; Complete Time: 19:16 sp3 12/12 17:58 Order name: IV Saline Lock; Complete Time: 18:01 sp3 12/12 17:58 Order name: Labs collected and sent; Complete Time: 18:01 sp3 Administered Medications: 18:08 Drug: HYDROmorphone IVP 1 mg IVP once Route: IVP; Site: right antecubital; iw 18:52 Follow up: Response: No adverse reaction db 19:28 Follow up: Response: No adverse reaction; Pain is decreased me1 18:09 Drug: Ondansetron IVP 4 mg IVP once; over 2 minutes Route: IVP; Site: right antecubital;iw 19:28 Follow up: Response: No adverse reaction; Nausea is decreased me1 18:52 Drug: HYDROmorphone IVP 1 mg IVP once Route: IVP; Site: right antecubital; db 19:28 Follow up: Response: No adverse reaction; Pain is decreased me1 Disposition Summary: 10/19/23 19:22 Discharge Ordered Notes: Location: Home sp3 Condition: Stable sp3 Diagnosis - Abdominal pain, flank pain, resolved kidney stone sp3 Followup: sp3 - With: Private Physician - When: Upon discharge from the Emergency Department - Reason: Continuance of care Discharge Instructions: - Discharge Summary Sheet sp3 - Abdominal Pain, Adult sp3 Forms: - Medication Reconciliation Form sp3 - Thank You Letter sp3 - Antibiotic Education sp3 - Prescription Opioid Use sp3 - Patient Portal Instructions sp3 - Leadership Thank You Letter sp3 Signatures: Dispatcher [employer] Octavia Stewart RN RN iw Binh Almanzar MD MD sp3 Naz Oneill RN RN db Racheal Larson RN me1
[2022-12-12 19:51] LABS: Calcium Oxalate Crystals- Ur Moderate /HPF (None Seen); Specific Gravity 1.029 (1.005-1.030); Urine Bacteria None Seen /HPF (<20); Urine Bilirubin NEGATIVE (Negative); Urine Blood Negative (Negative); Urine Clarity Turbid (Clear); Urine Color Yellow (Yellow); Urine Glucose NEGATIVE (Negative); Urine Mucus 1+ /HPF (None Seen); Urine Protein TRACE (Negative); Urine Urobilinogen 1+ (Normal)
[2022-12-12 20:20] VITALS: TEMP 98
[2022-12-12 20:42] VITALS: BP 147/109; O2SAT 95
== END 2022-12-12 20:11 | disposition home or self-care (01) ==
LOC: ER 17:38
DX: R10.9 Unspecified abdominal pain (principal); Z87.442 Personal history of urinary calculi; Z88.6 Allergy status to analgesic agent
CPT/HCPCS: 85025; 81001; 36415; 80053; 74176; 96375; 96374; 99284; J1170 ×2; J2405